=== PATIENT | female | born 1950 | race Caucasian/White ===

== ENCOUNTER 2017-11-02 09:28 | Day surgery (SDC) | payer MEDICARE ==
[2017-10-30 09:15] VITALS: BMI 33.2
[~2017-11-02 09:28] MED LIST: LACTATED RINGERS 1,000 ML IV SCH
[2017-11-02 09:46] VITALS: RESP 18; TEMP 97.9
[2017-11-02] MEDS ORDERED: LACTATED RINGERS 1,000 ML IV ONE (09:46)
[2017-11-02] MEDS ORDERED: LIDOCAINE 1% 20 ML VIAL (10MG/ML) FOR IV START INTRADERMA ONE (09:46)
[2017-11-02] MEDS ORDERED: PROPOFOL 10 MG/ML 20 ML VIAL IV ONE (11:04)
--- NOTE | 2017-11-02 11:33 | P.PCN ---
Date of Procedure: 11/02/17 Procedure(s) Performed: Procedure: Total colonoscopy. Preoperative diagnosis: Screening for neoplasia. Postoperative diagnosis: Exam within normal limits. Preparation: HalfLytely prep. Sedation: Was provided by anesthesia. Brief clinical history: The patient is a 67-year-old female who is scheduled for this evaluation for screening for neoplasia age being her risk factor. She had a prior exam several years back. The patient has no abdominal complaints, bleeding or anemia. Procedure: With the patient on her left lateral decubitus position and after informed consent and adequate sedation, the perianal area was inspected and it did not show any fissures or fistulas. There were no masses felt on digital rectal examination. The Olympus CFQ 160L video colonoscope was then inserted in the rectum in the usual fashion and advanced to the cecum. The mucosa appeared healthy. There was no polyps or tumors seen or any obvious diverticular disease or other pathology. I retroflexed the endoscope in the rectum before the endoscope was withdrawn. The patient tolerated the procedure well. Plan: The patient was reassured. She will follow-up with you as planned and I recommended repeat exam in 10 years.
[2017-11-02 12:13] VITALS: BP 161/75; PULSE 78
== END 2017-11-02 12:31 | disposition home or self-care (01) ==
LOC: ORWHC2ENDO 09:28
DX: Z12.11 Encounter for screening for malignant neoplasm of colon (principal); I10 Essential (primary) hypertension; E78.5 Hyperlipidemia, unspecified; Z79.899 Other long term (current) drug therapy
CPT/HCPCS: G0121; J2704

== ENCOUNTER → 2018-06-21 | Outpatient (CLI) | payer MEDICARE ==
[2018-06-21 17:16] LABS: HGB 13.5 gm/dL (11.4-16.0); MCV 90.9 fL (80.0-100.0); Mean Platelet Volume 6.5; Platelet Count 230 k/uL (150-450); RBC 4.51 m/uL (3.80-5.40); RDW 12.9 % (11.5-15.5); WBC 7.6 k/uL (3.8-10.6)
[2018-06-21 17:30] LABS: Anion Gap 8 mmol/L; Blood Urea Nitrogen 23 mg/dL (7-17); Carbon Dioxide 30 mmol/L (22-30); Chloride 105 mmol/L (98-107); Potassium 4.6 mmol/L (3.5-5.1); Sodium 143 mmol/L (137-145)
== END | disposition home or self-care (01) ==
LOC: LABPAT 15:19
PROVIDERS: ATTEND Internal Medicine Interventional Cardiology
DX: Z01.812 Encounter for preprocedural laboratory examination (principal); E78.2 Mixed hyperlipidemia; I10 Essential (primary) hypertension; R94.39 Abnormal result of other cardiovascular function study
CPT/HCPCS: 80051; 82565; 84520; 85027

== ENCOUNTER 2018-07-02 06:25 | Day surgery (SDC) | payer MEDICARE ==
[2018-06-29 14:41] VITALS: BMI 30.2
[~2018-07-02 06:25] MED LIST changes: +ALPRAZolam 0.25 MG TAB PO PRN; +ALPRAZolam 0.5 MG TAB PO PRN; +ASPIRIN 325 MG TAB PO STA; +ATORVASTATIN 80 MG TAB PO STA; -LACTATED RINGERS 1,000 ML IV SCH; +NITROGLYCERIN SL TABS 0.4 MG TAB SUBLINGUAL PRN; +SODIUM CHLORIDE 0.9% 1,000 ML in EMPTY BAG 1 BAG IV ONE
[2018-07-02] MEDS ORDERED: SODIUM CHLORIDE 0.9% 1,000 ML IV ONE (07:05)
[2018-07-02 07:19] VITALS: RESP 16; TEMP 98
[2018-07-02 07:24] LABS: INR 1.1 (<1.2); Prothrombin Time 11.8 sec (9.0-12.0)
[2018-07-02] MEDS ORDERED: fentaNYL (PF) 50 MCG/ML 2 ML AMP IV ONE (07:45)
[2018-07-02] MEDS ORDERED: LIDOCAINE 1% INJ 10MG/ML (20 ML MDV) SQ ONE (07:52)
[2018-07-02] MEDS ORDERED: VERAPAMIL SYRINGE (5 MG/10 ML) INTRAARTER ONE (07:55)
[2018-07-02] MEDS ORDERED: HEPARIN SODIUM 1,000 UN/ML (10ML VL) IV ONE (08:02)
[2018-07-02] MEDS ORDERED: IOPAMIDOL-370 150ML BTL INJ ONE (08:06)
[2018-07-02] MEDS ORDERED: RX INFO: IV CONTRAST WAS GIVEN 1 EACH MISC MISCELLANE PRN (08:25)
[2018-07-02] MEDS ORDERED: SODIUM CHLORIDE 0.9% 1,000 ML IV SCH (08:30)
[2018-07-02] MEDS ORDERED: WARFARIN 5 MG TAB PO SCH (08:30)
[2018-07-02] MEDS ORDERED: ATORVASTATIN 10 MG TAB PO SCH (09:00)
[2018-07-02] MEDS ORDERED: NON-FORMULARY DRUG (Losartan/Hydrochlorothiazide [Losartan-Hctz 100-12.5 Mg Tab] 1 TAB) PO SCH (09:00)
[2018-07-02] MEDS ORDERED: METOPROLOL TARTRATE 25 MG TAB PO SCH (09:00)
--- NOTE | 2018-07-02 10:59 | CC ---
CARDIAC CATHETERIZATION REPORT Mrs. Cardenas is a 68-year-old female with known history of hypertension, hyperlipidemia, recently diagnosed with atrial fibrillation who had underwent myocardial perfusion imaging, that revealed evidence of inducible ischemia in the inferoapical wall. In view of that, recommendation made regarding cardiac catheterization. The procedures, risks, and complication were discussed with the patient, who is in full understanding and agreement. PROCEDURE: Patient was brought to the labor economist in a fasting semi-sedated state after receiving fentanyl and Benadryl and achieving moderate conscious sedated state. Using Xylocaine anesthesia and a Seldinger technique, a 6-Singaporean sheath was introduced in the right radial artery. Selective right and left angiography were performed using 5-Singaporean 3.5 bend right and left Katherine catheter, multiple views of the coronary artery including hemiaxial views obtained. Following that, a 5-Singaporean tight pigtail catheter was introduced in the left ventricle and a 30 degree SLATER view of the left ventricle was obtained. Following that, catheter and sheaths were removed. Hemostasis was obtained with deployment of a TR band. There was no immediate complication. Patient is returned to her room in stable condition. Of note, the patient received 4000 units of intravenous heparin as well as intra-arterial verapamil. FINDINGS: FLUOROSCOPY: There was calcification involving the left anterior descending artery. LEFT MAIN: This is a short size vessel, bifurcating immediately to the LAD and the left circumflex, left main coronary artery has no evidence of high-grade stenosis. LEFT ANTERIOR DESCENDING ARTERY: This is a large-sized vessel, reaching toward the apex with a wraparound apex segment giving rise to 3 diagonal branches. The first one is the larger in caliber. The left anterior descending artery has about a 20% plaque proximally. The rest of the vessel has no high-grade stenosis. LEFT CIRCUMFLEX: This is a codominant vessel, giving rise to a large obtuse marginal branch in mid segment. The obtuse marginal branch proximally has a 30% plaque distally gives rise to small PDA and PLV. The left circumflex distally has no evidence of high- grade stenosis. RIGHT CORONARY ARTERY: This is a codominant, moderately-sized vessel giving rise to a PDA. The right coronary artery in the proximal and mid segment has mild intimal plaque of 20% without any evidence of high-grade stenosis. LEFT VENTRICULOGRAM: Left ventriculogram was performed in 30 degree SLATER view and revealed normal left ventricular size and systolic function. The ejection fraction is 60%. There was no significant mitral regurgitation. HEMODYNAMICS: There was no gradient across the aortic valve. The left ventricular end-diastolic pressure was 16-20 mmHg. CONCLUSION: 1. Mild triple-vessel coronary disease. 2. Normal left ventricular size and systolic function. RECOMMENDATION: In view of finding anatomy, recommend continue with medical therapy with aggressive risk modification. Those findings and recommendations were discussed with the patient and her family, who are in full understanding and agreement. Duration of procedure is 19 minutes. MMODL / IJN: [id number] /
[2018-07-02 14:31] VITALS: BP 114/55; PULSE 46
[2018-07-03] MEDS ORDERED: WARFARIN 5 MG TAB PO SCH (08:25)
[2018-07-03] MEDS ORDERED: amLODIPine 5 MG TAB PO SCH (09:00)
== END 2018-07-02 13:21 | disposition home or self-care (01) ==
LOC: CATHCVL 06:25
PROVIDERS: ATTEND Internal Medicine Interventional Cardiology
DX: I25.10 Atherosclerotic heart disease of native coronary artery without angina pectoris (principal); E78.2 Mixed hyperlipidemia; R94.39 Abnormal result of other cardiovascular function study; I48.0 Paroxysmal atrial fibrillation; I10 Essential (primary) hypertension; Z79.01 Long term (current) use of anticoagulants; Z79.899 Other long term (current) drug therapy
CPT/HCPCS: 93458; 85610; J2001; J3010; J1644; Q9967

== ENCOUNTER → 2019-03-16 | Outpatient (CLI) | payer MEDICARE ==
[2019-03-16 15:55] VITALS: BP 179/91; PULSE 56; RESP 16; TEMP 98; BMI 37.0
--- NOTE | 2019-03-16 16:32 | P.HPBAR ---
Bariatric H&P - History & Physicial H&P Date: 03/16/19 History & Physicial: Visit/CC: Intial VISIT Patient initial contact: Initial weight: 87.345 kg Initial weight in pounds: 192.56 Height: 5 ft 0.5 in Initial BMI: 37.0 Last weight: Current weight: 87.345 kg Current weight in pounds: 192.56 Current BMI: 37.0 Abie body weight (based on NIH guidelines): 46.493 kg Excess body weight loss: 0.0% The patient is a 69 year-old F who presents for Bariatric Assessment. HPI: She comes in with afib and on blood thinners. She is looking into any procedures. Highest weight 220 pounds. She has lost 30 pounds cutting down carbs and sweets and treadmill. No heartburn. She is adopted. She had colonoscopy 2 years ago. She has easy bruising. Heart doctor Dr. Beebe pending follow up in 6 months, last month last seen. Her friends had weight loss surgery. No diarrhea. She used to smoke 28 ago 5 packs per day. She has undergone all diets for 1 year. Weight wathcers [place] weight loss, Nutrisystem, Adipex. Medical weight loss She is open to all procedures. [facility] reviewed Past Medical History Past Medical History: Atrial Fibrillation, Hyperlipidemia, Hypertension Additional Past Medical History / Comment(s): PT STATES THAT SHE FELL WHILE IN [place] ON Thursday06/28/18 AND BRUISED HER RT ARM AND CANNOT BEAR MUCH WEIGHT ON HER LEFT FOOT. History of Any Multi-Drug Resistant Organisms: None Reported Past Surgical History: Back Surgery, Orthopedic Surgery Additional Past Surgical History / Comment(s): Back fusion, laminectomy; Colonoscopies, Carpal Tunnel, feet -bone spurs; Shoulder & Knee Arthroscopy, cervical fusion Past Anesthesia/Blood Transfusion Reactions: No Reported Reaction Past Psychological History: No Psychological Hx Reported Smoking Status: Former smoker Past Alcohol Use History: None Reported Additional Past Alcohol Use History / Comment(s): Smoked from her teens until ppd ! Past Drug Use History: None Reported - Past Family History Mother Family Medical History: Unable to Obtain Additional Family Medical History / Comment(s): Adopted Surgical - Exam Vital Signs Temp Pulse Resp BP 98 F 56 L 16 179/91 03/16/19 15:52 03/16/19 15:52 03/16/19 15:52 03/16/19 15:52 Bariatric Checklist Checklist: Plan: Checklist: EGD: 1. Hiatal hernia: 2. H. Pylori: HgbA1c: Vitamin D: Smoking: Former smoker Primary care physician referral: Dr. Richter Psychiatry clearance: Cardiology clearance: Sleep study: Diet journal: VTE risk score: VTE risk level: Rehab needs at discharge:
[2019-03-16 18:24] LABS: HCT 42.5 % (34.0-46.0); HGB 14.2 gm/dL (11.4-16.0); MCH 29.6 pg (25.0-35.0); MCHC 33.3 g/dL (31.0-37.0); Mean Platelet Volume 6.6; Platelet Count 268 k/uL (150-450); RBC 4.78 m/uL (3.80-5.40); RDW 13.5 % (11.5-15.5)
[2019-03-16 18:34] LABS: Partial Thromboplastin Time 39.1 sec (22.0-30.0); Prothrombin Time 19.5 sec (9.0-12.0)
[2019-03-16 23:33] LABS: % Iron Saturation 14.9 (12.00-45.00); African American GFR (CKD) 66.6 (60.0-200.0); Albumin 4.6 g/dL (3.80-4.90); Albumin/Globulin Ratio 2.09 (1.60-3.17); Anion Gap 10.4 mmol/L (4.00-12.00); Calcium 9.2 mg/dL (8.7-10.3); Carbon Dioxide 27.6 mmol/L (21.6-31.8); Chol/HDL Ratio 4.54; Globulin 2.2 g/dL (1.6-3.3); LDL Cholesterol,Calculated 139.8 mg/dL (0.0-131.0); Magnesium 1.9 mg/dL (1.5-2.4); Phosphorus 3.5 mg/dL (2.4-5.1); Total Bilirubin 0.5 mg/dL (0.3-1.2); Total Protein 6.8 g/dL (6.2-8.2); VLDL Calculation 44.2 mg/dL (5.00-40.00)
[2019-03-16 23:41] LABS: Ferritin 56.9 ng/mL (10.0-291.0)
[2019-03-17 04:35] LABS: Hemoglobin A1C 5.9 % (4.0-6.0)
[2019-03-18 12:33] LABS: Zinc, Serum 69 ug/dL (60-130)
== END | disposition home or self-care (01) ==
LOC: BARWHC3 14:43
PROVIDERS: ATTEND Surgery Plastic and Reconstructive Surgery
DX: E66.9 Obesity, unspecified (principal); E21.1 Secondary hyperparathyroidism, not elsewhere classified; E89.1 Postprocedural hypoinsulinemia; D50.9 Iron deficiency anemia, unspecified; E44.0 Moderate protein-calorie malnutrition; E55.9 Vitamin D deficiency, unspecified; K74.1 Hepatic sclerosis; N19 Unspecified kidney failure; K50.90 Crohn's disease, unspecified, without complications; Z87.891 Personal history of nicotine dependence; Z68.37 Body mass index [BMI] 37.0-37.9, adult
CPT/HCPCS: 84255; 84134; 84425; 80061; 80053; 82607; 82728; 82525; 82746; 83540; 83550; 83735; 84100; 84443; 84590; 84630; 85027; 85610; 85730; 82306; 83970; 83036; G0463; 99211

== ENCOUNTER 2019-04-18 08:58 | Day surgery (SDC) | payer MEDICARE ==
[2019-04-14 13:16] VITALS: BMI 37.5
--- NOTE | 2019-04-18 07:25 | P.GSHP ---
History of Present Illness H&P Date: 04/18/19 CHIEF COMPLAINT: GERD HISTORY OF PRESENT ILLNESS: The patient is a 69-year-old female who presents reports gastroesophageal reflux disease. Upper endoscopy was offered for further evaluation and management. PAST MEDICAL HISTORY: Please see list. PAST SURGICAL HISTORY: Please see list. MEDICATIONS: Please see list. ALLERGIES: Please see list. SOCIAL HISTORY: No illicit drug use FAMILY HISTORY: No reports of Crohn disease or ulcerative colitis. REVIEW OF ORGAN SYSTEMS: CONSTITUTIONAL: No reports of fevers or chills. GI: Denies any blood in stools or constipation. PHYSICAL EXAM: VITAL SIGNS: Stable GENERAL: Well-developed and pleasant in no acute distress. HEENT: No scleral icterus. Extraocular movements grossly intact. Moist buccal mucosa. NECK: Supple without lymphadenopathy. CHEST: Unlabored respirations. Equal bilateral excursions. CARDIOVASCULAR: Regular rate and rhythm. Distal 2+ pulses. ABDOMEN: Soft, nondistended. MUSCULOSKELETAL: No clubbing, cyanosis, or edema. ASSESSMENT: 1. Gastroesophageal reflux disease PLAN: 1. Recommend proceeding with an upper endoscopy Past Medical History Past Medical History: Atrial Fibrillation, Hyperlipidemia, Hypertension, Osteoarthritis (OA) Additional Past Medical History / Comment(s): PT STATES THAT SHE FELL WHILE IN [place] ON Thursday06/28/18 AND BRUISED HER RT ARM AND CANNOT BEAR MUCH WEIGHT ON HER LEFT FOOT. History of Any Multi-Drug Resistant Organisms: None Reported Past Surgical History: Back Surgery, Heart Catheterization, Orthopedic Surgery Additional Past Surgical History / Comment(s): Back fusion, laminectomy, colonoscopies, Carpal Tunnel, feet -bone spurs, shoulder & knee arthroscopy, cervical fusion. Past Anesthesia/Blood Transfusion Reactions: No Reported Reaction Past Psychological History: No Psychological Hx Reported Smoking Status: Former smoker Past Alcohol Use History: Occasional Additional Past Alcohol Use History / Comment(s): Smoked from her teens until 1990, 5 PPD. Past Drug Use History: None Reported - Past Family History Mother Family Medical History: Unable to Obtain Additional Family Medical History / Comment(s): Adopted. Medications and Allergies Home Medications Medication Instructions Recorded Confirmed Type Atorvastatin [Lipitor] 10 mg PO QAM 10/30/17 04/14/19 History Losartan/Hydrochlorothiazide 1 tab PO QAM 07/01/18 04/14/19 History [Losartan-Hctz 100-12.5 mg Tab] Metoprolol Tartrate [Lopressor] 25 mg PO BID 07/01/18 04/14/19 History Warfarin Sodium [Coumadin] 2.5 mg PO TUTHSA 07/01/18 04/14/19 History Warfarin [Coumadin] 5 mg PO SUMOWEFR 07/01/18 04/14/19 History amLODIPine [Norvasc] 5 mg PO QAM 07/01/18 04/14/19 History Ergocalciferol [Vitamin D2 50,000 unit PO SA 03/30/19 04/14/19 History (DRISDOL)] Allergies Allergy/AdvReac Type Severity Reaction Status Date / Time latex Allergy Rash/Hives Verified 04/14/19 12:13
[~2019-04-18 08:58] MED LIST changes: -ALPRAZolam 0.25 MG TAB PO PRN; -ALPRAZolam 0.5 MG TAB PO PRN; -ASPIRIN 325 MG TAB PO STA; -ATORVASTATIN 80 MG TAB PO STA; +LACTATED RINGERS 1,000 ML IV SCH; +LIDOCAINE 1% 20 ML VIAL (10MG/ML) FOR IV START INTRADERMA PRN; -NITROGLYCERIN SL TABS 0.4 MG TAB SUBLINGUAL PRN; -SODIUM CHLORIDE 0.9% 1,000 ML in EMPTY BAG 1 BAG IV ONE
[2019-04-18 09:27] VITALS: RESP 16; TEMP 98.4
[2019-04-18] MEDS ORDERED: LIDOCAINE 1% INJ 10MG/ML (20 ML MDV) ONE (09:49)
[2019-04-18] MEDS ORDERED: PROPOFOL 10 MG/ML 20 ML VIAL IV ONE (09:49)
--- NOTE | 2019-04-18 09:56 | P.PCN ---
Date of Procedure: 04/18/19 Description of Procedure: PREOPERATIVE DIAGNOSIS: Gastroesophageal reflux disease. Morbid obesity. POSTOPERATIVE DIAGNOSIS: Morbid obesity. Gastritis. Gastroesophageal reflux disease. Diaphragmatic hiatal hernia OPERATION: Esophagogastroduodenoscopy with biopsies along antrum. SURGEON: Fani Hernandez MD ANESTHESIA: MAC. INDICATIONS: The patient is a 69-year-old female who presents with a history of reflux disease. Benefits and risks of the procedure were described. Informed consent was obtained. DESCRIPTION: The patient was brought into the endoscopy suite and laid in the left lateral decubitus position. An Olympus gastroscope was passed along the posterior oropharynx down to the distal esophagus where the squamocolumnar junction was encountered at 34 cm from the incisors. The stomach was entered and no bile reflux was found. Additional findings are listed below. Biopsies with cold f orceps were obtained of the antrum. The first through third portion of the duodenum was examined and unremarkable. Retroflexion of the scope confirmed Hill grade 2 lower esophageal valve. The squamocolumnar junction demonstrated LA grade A erosive esophagitis. The stomach was desufflated. The patient tolerated the procedure well. FINDINGS: Squamocolumnar junction 34 cm from the incisors. Diaphragmatic hiatus at 36 cm. Hiatal hernia, 2 cm Hill grade 2 lower esophageal valve. LA grade A erosive esophagitis. No active duodenitis. Chronic gastritis RECOMMENDATIONS: Upper endoscopy as needed. Plan - Discharge Summary Discharge Rx Participant: No New Discharge Prescriptions: No Action Atorvastatin [Lipitor] 10 mg PO QAM amLODIPine [Norvasc] 5 mg PO QAM Warfarin [Coumadin] 5 mg PO SUMOWEFR Losartan/Hydrochlorothiazide [Losartan-Hctz 100-12.5 mg Tab] 1 tab PO QAM Metoprolol Tartrate [Lopressor] 25 mg PO BID Warfarin Sodium [Coumadin] 2.5 mg PO TUTA Ergocalciferol [Vitamin D2 (DRISDOL)] 50,000 unit PO SA Discharge Medication List Atorvastatin [Lipitor] 10 mg PO QAM 10/30/17 [History] Losartan/Hydrochlorothiazide [Losartan-Hctz 100-12.5 mg Tab] 1 tab PO QAM 07/01/18 [History] Metoprolol Tartrate [Lopressor] 25 mg PO BID 07/01/18 [History] Warfarin Sodium [Coumadin] 2.5 mg PO TUTHSA 07/01/18 [History] Warfarin [Coumadin] 5 mg PO SUMOWEFR 07/01/18 [History] amLODIPine [Norvasc] 5 mg PO QAM 07/01/18 [History] Ergocalciferol [Vitamin D2 (DRISDOL)] 50,000 unit PO SA 03/30/19 [History] [facility]Ref[facility] [place] [place] [facility] [place] [facility] Patient Instructions/Handouts: Hiatal Hernia (DC), Gastroesophageal Reflux Disease (DC) Activity/Diet/Wound Care/Special Instructions: Start Coumadin 04/20/19 Discharge Disposition: HOME SELF-CARE
[2019-04-18 10:25] VITALS: BP 150/69; PULSE 43
== END 2019-04-18 10:50 | disposition home or self-care (01) ==
LOC: ORWHC2ENDO 08:58
PROVIDERS: ATTEND Surgery Plastic and Reconstructive Surgery
DX: K29.50 Unspecified chronic gastritis without bleeding (principal); K21.0 Gastro-esophageal reflux disease with esophagitis; K44.9 Diaphragmatic hernia without obstruction or gangrene; E66.01 Morbid (severe) obesity due to excess calories; I48.91 Unspecified atrial fibrillation; E78.5 Hyperlipidemia, unspecified; I10 Essential (primary) hypertension; M19.90 Unspecified osteoarthritis, unspecified site; Z68.38 Body mass index [BMI] 38.0-38.9, adult; Z91.040 Latex allergy status; Z87.828 Personal history of other (healed) physical injury and trauma; Z91.81 History of falling; Z98.890 Other specified postprocedural states; Z98.1 Arthrodesis status; Z87.891 Personal history of nicotine dependence; Z79.01 Long term (current) use of anticoagulants; Z79.899 Other long term (current) drug therapy
CPT/HCPCS: 88305; 43239; J2001; J2704

== ENCOUNTER → 2019-05-18 | Outpatient (CLI) | payer MEDICARE ==
[2019-05-18 16:36] VITALS: BP 179/80; PULSE 54; RESP 16; TEMP 97.9; BMI 37.6
--- NOTE | 2019-05-18 17:27 | P.PN ---
Subjective Progress Note Date: 05/18/19 DATE OF SERVICE: 05/18/2019 CHIEF COMPLAINT: Morbid obesity. HISTORY OF PRESENT ILLNESS: Renetta Cardenas is a 69-year-old female who comes with lifelong morbid obesity. She has co-morbidities hypertension, osteoarthritis of the knees, and hyperlipidemia. She has undergone multiple diets including weight watchers, [place] weight loss, Nutrisystem, Adipex and medical weight loss. She is now looking into the gastric bypass. She has completed upper endoscopy. She is pending follow-up for publicist. She is also pending her primary care letter. At height of 5 feet 0.5 inches, her ideal body weight is 127 pounds. Highest weight was 220 pounds, BMI 42.3. Today, she comes in 196 pounds from 192 pounds, 2 months ago. She has gained 3 pounds in 2 months. Her BMI is 37.6. She is 69 pounds overweight. PAST MEDICAL HISTORY: 1. Morbid obesity due to excess calories 2. Body mass index of 42.3 initial 3. Osteoarthritis of the knees. 4. Atrial fibrillation 5. Hypertensive heart disease. 6. Hyperlipidemia 7. Osteoarthritis of the back PAST SURGICAL HISTORY: 1. Back fusion 2. Laminectomy 3. Colonoscopy 4. Carpal tunnel surgery 5. Shoulder arthroscopy 6. Knee arthroscopy 7. Cervical fusion 8. Heart catheterization HOME MEDICATIONS: Home Medications Medication Instructions Recorded Confirmed Atorvastatin [Lipitor] 10 mg PO QAM 10/30/17 05/18/19 Losartan/Hydrochlorothiazide 1 tab PO QAM 07/01/18 05/18/19 [Losartan-Hctz 100-12.5 mg Tab] Metoprolol Tartrate [Lopressor] 25 mg PO BID 07/01/18 05/18/19 Warfarin Sodium [Coumadin] 2.5 mg PO TUTHSA 07/01/18 05/18/19 Warfarin [Coumadin] 5 mg PO SUMOWEFR 07/01/18 05/18/19 amLODIPine [Norvasc] 5 mg PO QAM 07/01/18 05/18/19 Ergocalciferol [Vitamin D2 50,000 unit PO SA 03/30/19 05/18/19 (DRISDOL)] ALLERGIES: Allergies Allergy/AdvReac Type Severity Reaction Status Date / Time latex Allergy Rash/Hives Verified 05/18/19 16:56 SOCIAL HISTORY: Past tobacco use. FAMILY HISTORY: No family history of ulcerative colitis disease or Crohn's disease. Family history of morbid obesity. No lupus in the family. No reports of stomach or esophageal cancer. REVIEW OF ORGAN SYSTEMS: CONSTITUTIONAL: At height of 5 feet 0.5 inches, her ideal body weight is 127 pounds. Highest weight was 220 pounds, BMI 42.3. HEENT: Denies any active troubles with vision or hearing. No troubles with swallowing. ENDOCRINE: No diabetes. No hypothyroidism. CARDIOVASCULAR: Past reports of palpitations or heart attacks or chest pain. Has atrial fibrillation RESPIRATORY: No pneumonia No asthma. GASTROINTESTINAL: Denies any bright red blood per rectum. No diarrhea. No constipation. MUSCULOSKELETAL: Has lower back pain and joint pain. Has osteoarthritis of the knees. NEURO: No headaches. No seizure disorders. PSYCH: No depression. No suicidal ideation. RHEUMATOLOGIC: No lupus. No rheumatoid arthritis. HEMATOLOGIC: Denies any abnormal bleeding or bruising. No personal history of DVTs. On anticoagulant. SKIN: No rash. No skin cancer. PHYSICAL EXAM: VITAL SIGNS: Height 5 foot 0.5 inches, weight 196 pounds. BMI 37.6 Vital Signs Temp 97.9 F 05/18/19 16:34 Pulse 54 L 05/18/19 16:34 Resp 16 05/18/19 16:34 BP 179/80 05/18/19 16:34 Pulse Ox GENERAL: Well-developed in no acute distress. HEENT: No scleral icterus. Extraocular movements grossly intact. Hears conversational speech. No nasal drainage. NECK: Supple without lymphadenopathy. CHEST: Nonlabored respirations with equal bilateral excursions. CARDIOVASCULAR: Irregular rate and rhythm. Distal 2+ pulses. ABDOMEN: Obese, soft, nontender, nondistended. MUSCULOSKELETAL: No clubbing, cyanosis. Gross strength 5/5 distal lower extremities. NEURO: No focal or lateralizing signs. Cranial nerves 2 through 12 grossly within normal limits. PSYCH: Appropriate affect. Alert and oriented to person, place and time. SKIN: Good skin turgor. Well perfused. LABS: Cholesterol elevated. Vitamin D is low. EGD FINDINGS: Squamocolumnar junction 34 cm from the incisors. Diaphragmatic hiatus at 36 cm. Hiatal hernia, 2 cm Hill grade 2 lower esophageal valve. LA grade A erosive esophagitis. No active duodenitis. Chronic gastritis Final Pathologic Diagnosis GASTRIC ANTRUM, BIOPSY: Mild chronic gastritis. Helicobacter pylori organisms are not identified on routine H+E sections. ASSESSMENT: 1. Morbid obesity due to excess calories 2. Body mass index of 42.3 initial 3. Osteoarthritis of the knees. 4. Atrial fibrillation 5. Hypertensive heart disease. 6. Hyperlipidemia 7. Osteoarthritis of the back 8. Hiatal hernia 9. Vitamin D deficiency PLAN: 1. She is looking into gastric bypass. 2. Vitamin D supplement for vitamin D deficiency. 3. Will need cardiac clearance. 4. She is on coumadin and is increased risk for complications with any baria tric procedure. 5. Also she is pending her PCP letter. Objective - Vital Signs Vital signs: Vital Signs Temp 97.9 F 05/18/19 16:34 Pulse 54 L 05/18/19 16:34 Resp 16 05/18/19 16:34 BP 179/80 05/18/19 16:34 Pulse Ox Intake & Output 05/17/19 05/18/19 05/18/19 18:59 06:59 18:59 Weight 88.904 kg
== END | disposition home or self-care (01) ==
LOC: BARWHC3 14:34
PROVIDERS: ATTEND Surgery Plastic and Reconstructive Surgery
DX: E66.01 Morbid (severe) obesity due to excess calories (principal); M17.0 Bilateral primary osteoarthritis of knee; I48.91 Unspecified atrial fibrillation; I11.9 Hypertensive heart disease without heart failure; E78.5 Hyperlipidemia, unspecified; K44.9 Diaphragmatic hernia without obstruction or gangrene; E55.9 Vitamin D deficiency, unspecified; Z68.41 Body mass index [BMI] 40.0-44.9, adult; Z87.891 Personal history of nicotine dependence; Z79.01 Long term (current) use of anticoagulants; Z79.899 Other long term (current) drug therapy; Z91.040 Latex allergy status
CPT/HCPCS: 99211

== ENCOUNTER → 2019-05-30 | Outpatient (CLI) | payer MEDICARE ==
[2019-05-30 09:27] VITALS: BMI 37.9
== END | disposition home or self-care (01) ==
LOC: BARWHC3 08:32
PROVIDERS: ATTEND Surgery Plastic and Reconstructive Surgery
DX: E66.01 Morbid (severe) obesity due to excess calories (principal); Z68.37 Body mass index [BMI] 37.0-37.9, adult
CPT/HCPCS: 97804

== ENCOUNTER → 2019-06-15 | Outpatient (CLI) | payer MEDICARE ==
[2019-06-15 16:25] LABS: Albumin 4.9 g/dL (3.5-5.0); Calcium 9.8 mg/dL (8.4-10.2); Potassium 5.2 mmol/L (3.5-5.1)
[2019-06-15 16:28] LABS: Basophils # (A) 0.1 k/uL (0-0.2); Basophils % (A) 1 %; Eosinophils # (A) 0.1 k/uL (0-0.7); Eosinophils % (A) 1 %; HCT 43.3 % (34.0-46.0); HGB 14.5 gm/dL (11.4-16.0); Lymphocytes # (A) 1.5 k/uL (1.0-4.8); Lymphocytes % (A) 19 %; MCHC 33.5 g/dL (31.0-37.0); MCV 89.4 fL (80.0-100.0); Mean Platelet Volume 7.3; Monocytes # (A) 0.4 k/uL (0-1.0); Monocytes % (A) 5 %; Neutrophils # (A) 5.9 k/uL (1.3-7.7); Neutrophils % (A) 72 %; Platelet Count 257 k/uL (150-450); RBC 4.85 m/uL (3.80-5.40); WBC 8.2 k/uL (3.8-10.6)
== END | disposition home or self-care (01) ==
LOC: LABPAT 15:14
PROVIDERS: ATTEND Surgery Plastic and Reconstructive Surgery
DX: Z01.812 Encounter for preprocedural laboratory examination (principal)
CPT/HCPCS: 36415; 80053; 85025; 86850; 86900; 86901

== ENCOUNTER → 2019-06-15 | Outpatient (CLI) | payer MEDICARE ==
[2019-06-15 14:19] VITALS: BP 155/71; PULSE 58; RESP 16; TEMP 97.9; BMI 37.0
--- NOTE | 2019-06-15 14:58 | P.PN ---
Subjective Progress Note Date: 06/15/19 DATE OF SERVICE: 06/15/2019 CHIEF COMPLAINT: Morbid obesity. HISTORY OF PRESENT ILLNESS: Renetta Cardenas is a 69-year-old female who comes with lifelong morbid obesity. She comes in with hypertension, osteoarthritis of the knees, and hyperlipidemia. She has completed medical supervised weight loss. She is now looking into the gastric bypass. At height of 5 feet 0.5 inches, her ideal body weight is 127 pounds. Highest weight was 220 pounds, BMI 42.3. Today, she comes in 190 pounds from 196 pounds from 192 pounds, 1 month ago. She has lost 6 pounds in 1 month. Her BMI is 37.1. She is 63 pounds overweight. PAST MEDICAL HISTORY: 1. Morbid obesity due to excess calories 2. Body mass index of 42.3 initial 3. Osteoarthritis of the knees. 4. Atrial fibrillation 5. Hypertensive heart disease. 6. Hyperlipidemia 7. Osteoarthritis of the back PAST SURGICAL HISTORY: 1. Back fusion 2. Laminectomy 3. Colonoscopy 4. Carpal tunnel surgery 5. Shoulder arthroscopy 6. Knee arthroscopy 7. Cervical fusion 8. Heart catheterization HOME MEDICATIONS: Home Medications Medication Instructions Recorded Confirmed Atorvastatin [Lipitor] 10 mg PO QAM 10/30/17 05/18/19 Losartan/Hydrochlorothiazide 1 tab PO QAM 07/01/18 05/18/19 [Losartan-Hctz 100-12.5 mg Tab] Metoprolol Tartrate [Lopressor] 25 mg PO BID 07/01/18 05/18/19 Warfarin Sodium [Coumadin] 2.5 mg PO TUTHSA 07/01/18 05/18/19 Warfarin [Coumadin] 5 mg PO SUMOWEFR 07/01/18 05/18/19 amLODIPine [Norvasc] 5 mg PO QAM 07/01/18 05/18/19 Ergocalciferol [Vitamin D2 50,000 unit PO SA 03/30/19 05/18/19 (DRISDOL)] ALLERGIES: Allergies Allergy/AdvReac Type Severity Reaction Status Date / Time latex Allergy Rash/Hives Verified 05/18/19 16:56 SOCIAL HISTORY: Past tobacco use. FAMILY HISTORY: No family history of ulcerative colitis disease or Crohn's disease. Family history of morbid obesity. No lupus in the family. No reports of stomach or esophageal cancer. REVIEW OF ORGAN SYSTEMS: CONSTITUTIONAL: At height of 5 feet 0.5 inches, her ideal body weight is 127 pounds. Highest weight was 220 pounds, BMI 42.3. HEENT: Denies any active troubles with vision or hearing. No troubles with swallowing. ENDOCRINE: No diabetes. No hypothyroidism. CARDIOVASCULAR: Past reports of palpitations or heart attacks or chest pain. Has atrial fibrillation RESPIRATORY: No pneumonia No asthma. GASTROINTESTINAL: Denies any bright red blood per rectum. No diarrhea. No constipation. MUSCULOSKELETAL: Has lower back pain and joint pain. Has osteoarthritis of the knees. NEURO: No headaches. No seizure disorders. PSYCH: No depression. No suicidal ideation. RHEUMATOLOGIC: No lupus. No rheumatoid arthritis. HEMATOLOGIC: Denies any abnormal bleeding or bruising. No personal history of DVTs. On anticoagulant. SKIN: No rash. No skin cancer. PHYSICAL EXAM: VITAL SIGNS: Height 5 foot 0.5 inches, weight 190 pounds. BMI 37.1 Vital Signs Temp 97.9 F 06/15/19 14:16 Pulse 58 L 06/15/19 14:16 Resp 16 06/15/19 14:16 BP 155/71 06/15/19 14:16 Pulse Ox GENERAL: Well-developed in no acute distress. HEENT: No scleral icterus. Extraocular movements grossly intact. Hears conversational speech. No nasal drainage. NECK: Supple without lymphadenopathy. CHEST: Nonlabored respirations with equal bilateral excursions. CARDIOVASCULAR: Irregular rate and rhythm. Distal 2+ pulses. ABDOMEN: Obese, soft, nontender, nondistended. MUSCULOSKELETAL: No clubbing, cyanosis. NEURO: No focal or lateralizing signs. Cranial nerves 2 through 12 grossly within normal limits. PSYCH: Appropriate affect. Alert and oriented to person, place and time. SKIN: Good skin turgor. Well perfused. ASSESSMENT: 1. Morbid obesity due to excess calories 2. Body mass index of 42.3 initial to 37.1 3. Osteoarthritis of the knees. 4. Atrial fibrillation 5. Hypertensive heart disease. 6. Hyperlipidemia 7. Osteoarthritis of the back 8. Hiatal hernia 9. Vitamin D deficiency 10. Chronic anticoagulant therapy PLAN: 1. Bariatric options between a sleeve, band and a Minda-en-Y gastric bypass were reviewed in detail. The patient elected for a gastric bypass. Robotic assisted approach described. 2. The [place] [facility] Data was also reviewed with benefits and risks as described. 3. An 8 page second-generation bariatric consent form was reviewed in detail including potential of bleeding, infection, leaks, adequate weight loss, nutritional deficiencies which the patient demonstrated understanding of the risks. 4. A 2 week high-protein low caloric 800 kcal diet described to address hepatomegaly. 5. Preoperative labs including complete metabolic panel and CBC with type and screen recommended. 6. DVT prophylaxis per [place] [facility]. 7. Antibiotic prophylaxis. 8. Inpatient hospitalization anticipated for more than 2 nights. 9. All questions and concerns were addressed with the patient.Consent gastric bypass. 10. She is high surgical risk with being on coumadin. She will be off coumadin at least 5 days prior. Objective - Vital Signs Vital signs: Vital Signs Temp 97.9 F 06/15/19 14:16 Pulse 58 L 06/15/19 14:16 Resp 16 06/15/19 14:16 BP 155/71 06/15/19 14:16 Pulse Ox Intake & Output 06/14/19 06/15/19 06/15/19 18:59 06:59 18:59 Weight 86.183 kg
== END | disposition home or self-care (01) ==
LOC: BARWHC3 13:43
PROVIDERS: ATTEND Surgery Plastic and Reconstructive Surgery
DX: E66.01 Morbid (severe) obesity due to excess calories (principal); M17.0 Bilateral primary osteoarthritis of knee; I48.91 Unspecified atrial fibrillation; I11.9 Hypertensive heart disease without heart failure; E78.5 Hyperlipidemia, unspecified; K44.9 Diaphragmatic hernia without obstruction or gangrene; E55.9 Vitamin D deficiency, unspecified; Z68.37 Body mass index [BMI] 37.0-37.9, adult; Z83.49 Family history of other endocrine, nutritional and metabolic diseases; Z87.891 Personal history of nicotine dependence; Z79.01 Long term (current) use of anticoagulants; Z79.899 Other long term (current) drug therapy; Z91.040 Latex allergy status
CPT/HCPCS: 99211

== ENCOUNTER 2019-06-20 07:18 | Inpatient (IN) | payer MEDICARE ==
--- NOTE | 2019-06-19 14:18 | P.GSHP ---
History of Present Illness H&P Date: 06/20/19 DATE OF SERVICE: 06/20/2019 CHEIF COMPLAINT: Morbid obesity HISTORY OF PRESENT ILLNESS: Renetta Cardenas is a 69-year-old female who comes with lifelong morbid obesity. She comes in with co-morbidities of hypertension, osteoarthritis of the knees, and hyperlipidemia. She comes in with atrial fibr illation and is on blood thinners. She is looking into the gastric bypass. Her highest weight was 220 pounds. She has lost 30 pounds by cutting down carbs and sweets and treadmill. No reports of severe heartburn. She is adopted. She had colonoscopy 2 years ago. She has easy bruising. At height of 5 feet 0.5 inches, her ideal body weight is 127 pounds. Highest weight was 220 pounds, BMI 42.3. She comes in 192 pounds, BMI 37.0. She is 65 pounds overweight. PAST MEDICAL HISTORY: 1. Morbid obesity due to excess calories 2. Body mass index of 42.3 initial 3. Osteoarthritis of the knees. 4. Atrial fibrillation 5. Hypertensive heart disease. 6. Hyperlipidemia 7. Osteoarthritis of the back PAST SURGICAL HISTORY: 1. Back fusion 2. Laminectomy 3. Colonoscopy 4. Carpal tunnel surgery 5. Shoulder arthroscopy 6. Knee arthroscopy 7. Cervical fusion 8. Heart catheterization HOME MEDICATIONS: Home Medications Medication Instructions Recorded Confirmed Atorvastatin [Lipitor] 10 mg PO QAM 10/30/17 05/18/19 Losartan/Hydrochlorothiazide 1 tab PO QAM 07/01/18 05/18/19 [Losartan-Hctz 100-12.5 mg Tab] Metoprolol Tartrate [Lopressor] 25 mg PO BID 07/01/18 05/18/19 Warfarin Sodium [Coumadin] 2.5 mg PO TUTHSA 07/01/18 05/18/19 Warfarin [Coumadin] 5 mg PO SUMOWEFR 07/01/18 05/18/19 amLODIPine [Norvasc] 5 mg PO QAM 07/01/18 05/18/19 Ergocalciferol [Vitamin D2 50,000 unit PO SA 03/30/19 05/18/19 (DRISDOL)] ALLERGIES: Allergies Allergy/AdvReac Type Severity Reaction Status Date / Time latex Allergy Rash/Hives Verified 05/18/19 16:56 SOCIAL HISTORY: Past tobacco use. FAMILY HISTORY: No family history of ulcerative colitis disease or Crohn's disease. Family history of morbid obesity. No lupus in the family. No reports of stomach or esophageal cancer. REVIEW OF ORGAN SYSTEMS: CONSTITUTIONAL: At height of 5 feet 0.5 inches, her ideal body weight is 127 pounds. Highest weight was 220 pounds, BMI 42.3. HEENT: Denies any active troubles with vision or hearing. No troubles with swallowing. ENDOCRINE: No diabetes. No hypothyroidism. CARDIOVASCULAR: Past reports of palpitations or heart attacks or chest pain. Has atrial fibrillation RESPIRATORY: No pneumonia No asthma. GASTROINTESTINAL: Denies any bright red blood per rectum. No diarrhea. No constipation. MUSCULOSKELETAL: Has lower back pain and joint pain. Has osteoarthritis of the knees. NEURO: No headaches. No seizure disorders. PSYCH: No depression. No suicidal ideation. RHEUMATOLOGIC: No lupus. No rheumatoid arthritis. HEMATOLOGIC: Denies any abnormal bleeding or bruising. No personal history of DVTs. On anticoagulant. SKIN: No rash. No skin cancer. PHYSICAL EXAM: VITAL SIGNS: Height 5 foot 0.5 inches, weight 192 pounds. BMI 37.0 GENERAL: Well-developed in no acute distress. HEENT: No scleral icterus. Extraocular movements grossly intact. Hears conversational speech. No nasal drainage. NECK: Supple without lymphadenopathy. CHEST: Nonlabored respirations with equal bilateral excursions. CARDIOVASCULAR: Irregular rate and rhythm. Distal 2+ pulses. ABDOMEN: Obese, soft, nontender, nondistended. MUSCULOSKELETAL: No clubbing, cyanosis. Gross strength 5/5 distal lower extremities. NEURO: No focal or lateralizing signs. Cranial nerves 2 through 12 grossly within normal limits. PSYCH: Appropriate affect. Alert and oriented to person, place and time. SKIN: Good skin turgor. Well perfused. ASSESSMENT: 1. Morbid obesity due to excess calories 2. Body mass index of 42.3 initial 3. Osteoarthritis of the knees. 4. Atrial fibrillation 5. Hypertensive heart disease. 6. Hyperlipidemia 7. Osteoarthritis of the back 8. Chronic anticoagulant use PLAN: 1. Surgical options including a band, gastric bypass, sleeve gastrectomy were described in detail. Alternatives such as gastric balloon including duodenal switch were described. 2. She has selected a Minda-en-Y gastric bypass. An 8 page secondary consent form including benefits and risks and nutritional deficiencies, need for further surgery, bowel obstruction, inadequate weight loss were reviewed. Robotic- assisted approach were described. 3. Inpatient hospitalization over 2 nights described. 4. Patient has high perioperative risk due to cardiomyopathy as well as chronic Coumadin use. Past Medical History Past Medical History: Atrial Fibrillation, Hyperlipidemia, Hypertension, Osteoarthritis (OA) Additional Past Medical History / Comment(s): PT STATES THAT SHE FELL WHILE IN [place] ON Thursday06/28/18 AND BRUISED HER RT ARM AND CANNOT BEAR MUCH WEIGHT ON HER LEFT FOOT. History of Any Multi-Drug Resistant Organisms: None Reported Past Surgical History: Back Surgery, Heart Catheterization, Orthopedic Surgery Additional Past Surgical History / Comment(s): laminectomy, colonoscopies, Carpal Tunnel, feet -bone spurs, shoulder & knee arthroscopy, cervical fusion, recent EGD Past Anesthesia/Blood Transfusion Reactions: No Reported Reaction Additional Past Anesthesia/Blood Transfusion Reaction / Comment(s): pt adopted Smoking Status: Former smoker - Past Family History Mother Family Medical History: Unable to Obtain Additional Family Medical History / Comment(s): Adopted Medications and Allergies Home Medications Medication Instructions Recorded Confirmed Type Atorvastatin [Lipitor] 40 mg PO QAM 10/30/17 06/15/19 History Metoprolol Tartrate [Lopressor] 50 mg PO BID 07/01/18 06/15/19 History Warfarin Sodium [Coumadin] 2.5 mg PO TUTHSA 07/01/18 06/15/19 History Warfarin [Coumadin] 5 mg PO SUMOWEFR 07/01/18 06/15/19 History amLODIPine [Norvasc] 5 mg PO QAM 07/01/18 06/15/19 History Ergocalciferol [Vitamin D2 50,000 unit PO SA 03/30/19 06/15/19 History (DRISDOL)] Hydrochlorothiazide [Hydrodiuril] 12.5 mg PO DAILY 06/15/19 06/15/19 History Losartan Potassium [Cozaar] 100 mg PO DAILY 06/15/19 06/15/19 History Allergies Allergy/AdvReac Type Severity Reaction Status Date / Time latex Allergy Rash/Hives Verified 06/15/19 14:43
[~2019-06-20 07:18] MED LIST changes: +ACETAMINOPHEN IV (For NPO) 1,000 MG in EMPTY BAG 1 BAG IVPB ONE; +CHLORHEXIDINE GLUCONATE 15 ML CUP MUCOUS MEM ONE; +DEXAMETHASONE SOD PHOSPHATE 10 MG/ML 1 ML VIAL IV ONE; +ENOXAPARIN 40 MG/0.4 ML SYRINGE SQ STA; -LACTATED RINGERS 1,000 ML IV SCH; -LIDOCAINE 1% 20 ML VIAL (10MG/ML) FOR IV START INTRADERMA PRN; +MIDAZOLAM 2 MG/2 ML VIAL IV PRN; +ONDANSETRON 4 MG/2 ML VIAL IVP ONE; +PANTOPRAZOLE 40 MG/10 ML VIAL IV STA
[2019-06-20] MEDS: LIDOCAINE 1% (10MG/ML) FOR IV START INTRADERMA PRN (08:20)
[2019-06-20] MEDS: LACTATED RINGERS 1,000 ML IV SCH ×2 (08:20→21:35)
[2019-06-20 09:17] LABS: INR 1.1 (<1.2); Prothrombin Time 11.3 sec (9.0-12.0)
[2019-06-20] MEDS ORDERED: PROPOFOL 10 MG/ML 20 ML VIAL IV ONE (09:35)
[2019-06-20] MEDS ORDERED: fentaNYL (PF) 50 MCG/ML 2 ML AMP ONE (09:35)
[2019-06-20] MEDS ORDERED: ROCURONIUM BROMIDE 10 MG/ML 5 ML VIAL IV ONE (09:35)
[2019-06-20] MEDS ORDERED: MIDAZOLAM 2 MG/2 ML VIAL ONE (09:35)
[2019-06-20] MEDS ORDERED: GLYCOPYRROLATE 0.2 MG/ML 2 ML VIAL ONE (09:35)
[2019-06-20] MEDS ORDERED: NEOSTIGMINE 1 MG/ML 10 ML VIAL ONE (09:35)
[2019-06-20] MEDS ORDERED: LIDOCAINE 1% INJ 10MG/ML (20 ML MDV) ONE (09:35)
[2019-06-20] MEDS ORDERED: ePHEDrine SULFATE/0.9% NACL/PF 50 MG/5 ML SYRINGE IV ONE (09:35)
[2019-06-20] MEDS ORDERED: LIDOCAINE 1%-EPI 1:100,000 20 ML VIAL SQ ONE (10:33)
[2019-06-20] MEDS ORDERED: LACTATED RINGERS 1,000 ML IV ONE ×2 (10:34→12:31)
[2019-06-20] MEDS: fentaNYL (PF) 50 MCG/ML 2 ML AMP IV PRN ×3 (11:19→11:31)
[2019-06-20] MEDS: HYDROmorphone 1 MG/ML 1 ML SYRINGE IVP ONE ×4 (11:41→13:39)
[2019-06-20] MEDS ORDERED: NALOXONE 0.4 MG/ML 1 ML VIAL IV PRN (11:53)
[2019-06-20] MEDS ORDERED: HYDROmorphone 1 MG/ML 1 ML SYRINGE IVP ONE (12:34)
--- NOTE | 2019-06-20 13:41 | P.OP ---
Date of Procedure: 06/20/19 Description of Procedure: SURGEON: SAMMY ROBLES MD PREOPERATIVE DIAGNOSES: 1. Morbid obesity due to excess calories 2. Body mass index of 42.3 initial 3. Osteoarthritis of the knees. 4. Past history of atrial fibrillation 5. Hypertensive heart disease. 6. Hyperlipidemia 7. Osteoarthritis of the back 8. Chronic anticoagulant use POSTOPERATIVE DIAGNOSES: 1. Morbid obesity due to excess calories 2. Body mass index of 42.3 initial 3. Osteoarthritis of the knees. 4. Past history of atrial fibrillation 5. Hypertensive heart disease. 6. Hyperlipidemia 7. Osteoarthritis of the back 8. Chronic anticoagulant use 9. Urethral stricture, requiring 14 Fr degroot 10. Diffuse severe peritoneal adhesions greater omentum to abdominal wall 11. Interlooped adhesions ligament of Treitz OPERATION: 1. Abandoned gastric bypass for robotic-assisted da Roge Xi laparoscopic extensive lysis of adhesions over 30 minutes Anesthesia: GETA, local Estimated Blood Loss (ml): 2 Pathology: none sent COMPLICATIONS: None. Condition: stable Operative Findings: 1. Diffuse complete intra-abdominal adhesions greater omentum to anterior abdominal wall from epigastrium to pelvis addressed using vessel sealer 2. Interloop adhesions identified at ligament of Treitz 3. With diffuse adhesions, Minda-en-Y gastric bypass abandoned secondary to high risk of small bowel obstruction due to intra-abdominal adhesions INDICATIONS: Renetta Cardenas is a 69-year-old female who comes with lifelong morbid obesity. She comes in with co-morbidities of hypertension, osteoarthritis of the knees, and hyperlipidemia. She comes in with past history of atrial fibrillation and is on blood thinners. She is looking into the gastric bypass. Her highest weight was 220 pounds. She has lost 30 pounds by cutting down carbs and sweets and treadmill. No reports of severe heartburn. She is adopted. She had colonoscopy 2 years ago. She has easy bruising. At height of 5 feet 0.5 inches, her ideal body weight is 127 pounds. Highest weight was 220 pounds, BMI 42.3. She comes in 192 pounds, BMI 37.0. She is 65 pounds overweight. A second-generation bariatric consent form was described in detail including the possibility of protein malnutrition, leaks, gastrojejunal stricture, venous thrombosis, need for further surgery for which she demonstrated understanding. Benefits and risks of the procedure were described at length. Informed consent was obtained. DESCRIPTION OF PROCEDURE: Patient was brought to the operating room, placed in supine position. After general induction, the abdomen had been prepped and draped in standard sterile fashion. The robotic da Roge XI system was primed. After a timeout protocol was performed, the patient had been prepped and draped in standard sterile fashion. A 5 mm 0 degrees laparoscopic trocar entry was performed along the left upper quadrant. The abdomen was insufflated to 15 mmHg pressure which was tolerated well. Diagnostic laparoscopy demonstrated severe intra-abdominal adhesions involving the entire abdomen including midline and pelvis. Greater omentum to the abdominal wall adhesions were found. Next, three 8 mm robotic ports were placed along the left abdominal wall, 8 cm away from each other. The robot was docked along the right abdomen. The patient was repositioned in reverse Trendelenburg position of 20-degrees. Instruments were interchanged using 3 ports for a grasper, vessel sealer, and scissors with cautery. Instruments were interchanged by the video production assistant. I sat at the console. Extensive lysis of adhesions over 30 minutes was performed. Carefully the adhesions were taken down without injury to the small bowel using vessel sealer and cautery on scissors to address severe adhesions of the greater omentum and abdominal wall. At the ligament of Trietz, interloop adhesions were found. With the severity of adhesions, gastric bypass was abandoned secondary to high risk for future bowel obstructions. The liver was smooth and unremarkable. The gallbladder was unremarkable in appearance. Hemostasis was excellent and abdomen was dry upon completion. The robot was undocked. All pneumoperitoneum and instruments were evacuated from the abdominal cavity. The incisions were reapproximated using 4-0 Monocryl in an interrupted subcuticular fashion. Please note along the trocar sites, local anesthetic was placed as a field block prior to insertion of all instruments. Liquid glue was applied to the skin. At the end of the procedure needle, sponge, and instrument count had been verified correct by the surgical first assistant. The patient was transferred to postanesthesia care unit in stable condition. Intraoperative images including findings were described to the patients family.
[2019-06-20] MEDS: ACETAMINOPHEN IV (For NPO) 1,000 MG in EMPTY BAG 1 BAG IVPB ONE ×2 (16:11→16:29)
[2019-06-20] MEDS: 0.9% NACL WITH KCL 20 MEQ/L 1,000 ML IV SCH ×2 (16:12→21:35)
[2019-06-20] MEDS: METOPROLOL TARTRATE 50 MG TAB PO SCH (21:34)
[2019-06-20] MEDS: SIMETHICONE 80 MG CHEWABLE PO SCH ×2 (21:35→21:53)
[2019-06-21] MEDS: 0.9% NACL WITH KCL 20 MEQ/L 1,000 ML IV SCH ×4 (01:15→23:18)
[2019-06-21] MEDS ORDERED: IOPAMIDOL CONTRAST (ORAL USE) VIAL PO PRN (09:14)
[2019-06-21] MEDS: LOSARTAN 50 MG TAB PO SCH (09:25)
[2019-06-21] MEDS: amLODIPine 5 MG TAB PO SCH (09:25)
[2019-06-21] MEDS: METOPROLOL TARTRATE 50 MG TAB PO SCH ×2 (09:25→21:45)
[2019-06-21] MEDS: ENOXAPARIN 40 MG/0.4 ML SYRINGE SQ SCH (09:25)
[2019-06-21] MEDS: SIMETHICONE 80 MG CHEWABLE PO SCH ×4 (09:25→21:46)
[2019-06-21] MEDS: HYDROCHLOROTHIAZIDE 12.5 MG CAP PO SCH (09:25)
--- NOTE | 2019-06-21 12:21 | P.GSCN ---
History of Present Illness Consult date: 06/21/19 Reason for Consult: Urethral stricture History of present illness: The patient is a 69-year-old female with a history of moribund obesity who was admitted for elective bariatric surgery. At the time of the surgery through was apparently some difficulty in placement of a [place] catheter however a 14-[place] catheter was successfully inserted. The catheter was removed and the patient has been voiding since that time. She has no previous history of urinary retention. She says that she had catheters following surgery on her cervical spine and lumbosacral spine and had no apparent problems with placement of the catheters at that time. She says she usually voids every 3-5 hours during the day and rarely if ever at night. She has complained of a slow urinary flow for years which she rates as a 4-5 out of 10. She is uncertain that she only voids completely. She complains of urgency and says that she has urge incontinence 2 or 3 times per week. She also has urine leakage with coughing and straining which dates back at least 40 years. She does not wear a pad due to her leakage as apparently the leakage is not that bothersome. She has no history of urinary tract infection or gross hematuria. She has chronic constipation and says that she has a bowel movement sometimes only once per week. She has taken lactulose for this in the past but says that she does not take it on a regular basis. Review of Systems All systems: negative (reviewed and no additional complaints were noted) Past Medical History Past Medical History: Atrial Fibrillation, Hyperlipidemia, Hypertension, Osteoarthritis (OA) Additional Past Medical History / Comment(s): PT STATES THAT SHE FELL WHILE IN [place] ON Thursday06/28/18 AND BRUISED HER RT ARM AND CANNOT BEAR MUCH WEIGHT ON HER LEFT FOOT. History of Any Multi-Drug Resistant Organisms: None Reported Past Surgical History: Back Surgery, Heart Catheterization, Orthopedic Surgery (Right shoulder and left knee) Additional Past Surgical History / Comment(s): laminectomy, colonoscopies, Carpal Tunnel, feet -bone spurs, shoulder & knee arthroscopy, cervical fusion, recent EGD Past Anesthesia/Blood Transfusion Reactions: No Reported Reaction Additional Past Anesthesia/Blood Transfusion Reaction / Comm: pt adopted Past Psychological History: No Psychological Hx Reported Smoking Status: Former smoker Past Alcohol Use History: Occasional Additional Past Alcohol Use History / Comment(s): Smoked from her teens until 1990, 5 PPD. Past Drug Use History: None Reported - Past Family History Mother Family Medical History: Unable to Obtain Additional Family Medical History / Comment(s): Adopted Medications and Allergies Home Medications Medication Instructions Recorded Confirmed Type Atorvastatin [Lipitor] 40 mg PO QAM 10/30/17 06/15/19 History Metoprolol Tartrate [Lopressor] 50 mg PO BID 07/01/18 06/15/19 History amLODIPine [Norvasc] 5 mg PO QAM 07/01/18 06/15/19 History Ergocalciferol [Vitamin D2 50,000 unit PO SA 03/30/19 06/15/19 History (DRISDOL)] Hydrochlorothiazide [Hydrodiuril] 12.5 mg PO DAILY 06/15/19 06/15/19 History Losartan Potassium [Cozaar] 100 mg PO DAILY 06/15/19 06/15/19 History Acetaminophen Tab [Tylenol Tab] 1,000 mg PO Q6HR PRN #30 tablet 06/20/19 Rx Allergies Allergy/AdvReac Type Severity Reaction Status Date / Time latex Allergy Rash/Hives Verified 06/20/19 07:55 Surgical - Exam Vital Signs Temp Pulse Resp BP Pulse Ox 97.5 F L 50 L 16 135/61 96 06/20/19 08:20 06/20/19 08:20 06/20/19 08:20 06/20/19 08:20 06/20/19 08:20 - General well developed, well nourished, no distress, obese - ENT no hearing loss - Neck no masses, no lymphadectomy - Respiratory normal respiratory effort - Abdomen Abdomen: soft, non tender, no organomegaly Results - Labs 06/20/19 08:20 Assessment and Plan (1) Slow urinary stream Narrative/Plan: It's unclear to me whether the patient has a urethral stricture or whether there was just some difficulty in placement of the catheter interop related to the patient's obesity. It would be unusual for a woman to have urethral stricture and apparent she had catheters at least twice in the past which were placed without difficulty. A postvoid residual will be checked to determine how well the patient is voiding. Current Visit: Yes Status: Acute Code(s): R39.198 - OTHER DIFFICULTIES WITH MICTURITION SNOMED Code(s): 38017519 (2) Mixed stress and urge urinary incontinence Narrative/Plan: The patient has chronic urinary incontinence which appears to be a combination of both stress and urge incontinence by history. This is in part related to her obesity. Once the patient has lost weight if her incontinence remains bothers ome then further evaluation as an outpatient could be considered. Current Visit: Yes Status: Acute Code(s): N39.46 - MIXED INCONTINENCE SNOMED Code(s): 780236562
--- NOTE | 2019-06-21 13:44 | CT ---
EXAMINATION TYPE: CT abdomen pelvis w con DATE OF EXAM: 06/21/2019 COMPARISON: None HISTORY: Constipation CT DLP: 1614.5 mGycm Automated exposure control for dose reduction was used. TECHNIQUE: Helical acquisition of images from the lung bases through the pelvis have been completed. CONTRAST: Performed with Oral Contrast and with IV Contrast, patient injected with 100 mL of Isovue 300. FINDINGS: Within the subcutaneous fat in the left lower quadrant there is some lucency present as wel l as anteriorly towards the midline, some inflammatory changes present in the left lower quadrant sub cutaneous fat, correlate for post procedural change LUNG BASES: There is some minimal dependent atelectatic changes, small right pleural effusion AORTA: No significant abnormality is appreciated. LIVER/GB: There is pericholecystic fluid, gallbladder is distended. Mass effect is noted on the duode num. Liver shows no mass. PANCREAS: No significant abnormality is seen. SPLEEN: No significant abnormality is seen. ADRENALS: No significant abnormality is seen. KIDNEYS: Probable extrarenal pelvis present on the left versus partial UPJ obstruction, no evident ne phrolithiasis or ureteral calculus. REPRODUCTIVE ORGANS: Uterus is absent. Left ovary and right ovary unremarkable BOWEL: No significant abnormality is seen. FREE AIR: No Free Air visible. ASCITES: None visible. PELVIC ADENOPATHY: None visualized. RETROPERITONEAL ADENOPATHY: No Retroperitoneal Adenopathy visible. URINARY BLADDER: No significant abnormality is seen. OSSEOUS STRUCTURES: Degenerative disc changes are present in the lumbar spine. IMPRESSION: CHOLECYSTITIS, RESULTS RELAYED TO THE PATIENT'S NURSE ON THE RENNER AT THE TIME INTERPRETATION. NO EVID ENT RENAL STONE OR HYDRONEPHROSIS, SUSPECT PARTIAL UPJ OBSTRUCTION ON THE LEFT.
--- NOTE | 2019-06-21 14:34 | P.PN ---
<BoydConnie Magdaleno - Last Filed: 06/21/19 14:26> Subjective Progress Note Date: 06/21/19 CHIEF COMPLAINT: Morbid obesity HISTORY OF PRESENT ILLNESS: 69-year-old female who is status post lysis of adhesions. Minda-en-Y gastric bypass was performed secondary to high risk of small bowel obstruction due to intra-abdominal adhesions. Postop day #1. Patient seen and examined at the bedside with Dr. Hernandez. Patient denies abdominal pain. Denies nausea or vomiting. Patient has been on telemetry overnight with no evidence of atrial fibrillation per apparatus engineering technologist. PHYSICAL EXAM: VITAL SIGNS: Currently stable. GENERAL: Well-developed in no acute distress. HEENT: No sclera icterus. Extraocular movements grossly intact. Moist buccal mucosa. Head is atraumatic, normocephalic. Hears conversational speech. No nasal drainage. NECK: Supple without lymphadenopathy. CHEST: Non-labored respirations and equal bilateral excursions. CARDIOVASCULAR: Regular rate with regular rhythm. Palpable 2+ radial pulses. ABDOMEN: Soft. Nondistended. Appropriate surgical tenderness. MUSCULOSKELETAL: No clubbing, cyanosis or edema. NEUROLOGIC: No focal or lateralizing signs. Cranial nerves II through XII grossly intact. PSYCH: Appropriate affect. Alert and oriented to person, place and time. SKIN: Well perfused. Good skin turgor. ASSESSMENT: 1. Previous history of bilateral inguinal hernia repair 2. Abnormal computed tomography scan of recurrent left inguinal hernia 3. History of multiple abdominal surgeries 4. History of peritoneal adhesions 5. Hyperlipidemia 6. Hypertensive heart disease 7. Polycythemia 8. Osteopenia 9. Iron deficiency anemia 10. Esophageal dysmotility 11. Periumbilical pain 12. Severe peritoneal adhesions greater omentum to the abdominal wall 13. Possible ureteral stricture 14. Chronic constipation PLAN: -Dr. Hernandez reports having to use a 14F catheter in the OR for patient and suspects ureteral stricture. Will consult urology for evaluation -Continue to hold Coumadin. Will not resume at the time of discharge per Dr. Hernandez -Resume diet -Pain control -Obtain CT abdomen and pelvis due to history of bowel obstructions Nurse practitioner note has been reviewed by physician. Signing provider agrees with the documented findings, assessment, and plan of care. Objective - Vital Signs Vital signs: Vital Signs Temp 97.8 F 06/21/19 07:30 Pulse 85 06/21/19 07:30 Resp 16 06/21/19 07:30 BP 137/60 06/21/19 07:30 Pulse Ox 94 L 06/21/19 10:10 Intake & Output 06/20/19 06/21/19 06/21/19 18:59 06:59 18:59 Intake Total 2350 1550 Output Total 52 Balance 2298 1550 Weight 85 kg Intake: IV 2150 Intake, IV Titration 200 350 Amount 0.9% NaCl with KCl 20 Meq 200 /l 1,000 ml @ 100 mls/hr IV .Q10H [facility] Rx#: [id number] 0.9% NaCl with KCl 20 Meq 150 /l 1,000 ml @ 150 mls/hr IV .Q6H40M [facility] Rx#: [id number] Lactated Ringers 1,000 ml 200 @ 0 mls/hr IV .STK-MED ONE Rx#:[id number] Oral 1200 Output: Urine 50 Estimated Blood Loss 2 Other: Voiding Method Toilet # Voids 2 2 # Bowel Movements 0 - Labs CBC & Chem 7: 06/20/19 08:20 <Fani Hernandez N - Last Filed: 06/21/19 21:29> Subjective HIDA scan reviewed without findings of cystic duct obstruction. Will re-check CMP. CT reviewed as well. Possible cholecystectomy due new finding unrelated to recent procedure. Objective - Vital Signs Vital signs: Vital Signs Temp 99.1 F 06/21/19 19:30 Pulse 85 06/21/19 19:30 Resp 18 06/21/19 19:30 BP 153/75 06/21/19 19:30 Pulse Ox 95 06/21/19 19:30 Intake & Output 06/21/19 06/21/19 06/22/19 06:59 18:59 06:59 Intake Total 1550 Balance 1550 Intake: Intake, IV Titration 350 Amount 0.9% NaCl with KCl 20 Meq 200 /l 1,000 ml @ 100 mls/hr IV .Q10H [facility] Rx#: [id number] 0.9% NaCl with KCl 20 Meq 150 /l 1,000 ml @ 150 mls/hr IV .Q6H40M [facility] Rx#: [id number] Oral 1200 Other: Voiding Method Toilet # Voids 2 2 # Bowel Movements 0 - Labs CBC & Chem 7: 06/21/19 14:45 06/21/19 14:45 Labs: Abnormal Lab Results - Last 24 Hours (Table) 06/21/19 06/21/19 Range/Units 14:45 14:45 WBC 11.2 H (3.8-10.6) k/uL Neutrophils # 9.8 H (1.3-7.7) k/uL Lymphocytes # 0.7 L (1.0-4.8) k/uL Sodium 134 L (137-145) mmol/L BUN 24 H (7-17) mg/dL Glucose 141 H (74-99) mg/dL Calcium 8.3 L (8.4-10.2) mg/dL AST 40 H (14-36) U/L Total Protein 6.0 L (6.3-8.2) g/dL
[2019-06-21 15:21] LABS: Basophils % (A) 0 %; Eosinophils % (A) 0 %; HCT 38.1 % (34.0-46.0); HGB 12.4 gm/dL (11.4-16.0); Lymphocytes # (A) 0.7 k/uL (1.0-4.8); Lymphocytes % (A) 7 %; MCH 29.5 pg (25.0-35.0); MCHC 32.5 g/dL (31.0-37.0); MCV 90.6 fL (80.0-100.0); Mean Platelet Volume 7.7; Monocytes # (A) 0.5 k/uL (0-1.0); Monocytes % (A) 5 %; Neutrophils # (A) 9.8 k/uL (1.3-7.7); Neutrophils % (A) 88 %; Platelet Count 192 k/uL (150-450); RBC 4.21 m/uL (3.80-5.40); RDW 14.3 % (11.5-15.5); WBC 11.2 k/uL (3.8-10.6)
[2019-06-21 15:32] LABS: Albumin 3.6 g/dL (3.5-5.0); Calcium 8.3 mg/dL (8.4-10.2); Potassium 4.7 mmol/L (3.5-5.1); Total Bilirubin 0.6 mg/dL (0.2-1.3)
[2019-06-21] MEDS: PIPERACILLIN-TAZOBACTAM 3.375 GM in SODIUM CHLORIDE 0.9% 100 ML IVPB SCH ×2 (15:58→23:18)
[2019-06-21] MEDS: LACTATED RINGERS 1,000 ML IV SCH (19:22)
--- NOTE | 2019-06-21 20:41 | NM ---
EXAMINATION TYPE: NM hepatobiliary w CCK DATE OF EXAM: 06/21/2019 COMPARISON: NONE HISTORY: TECHNIQUE: After the intravenous administration of mCi Tc 99m Mebrofenin hepatobiliary scintigraphy i s performed. Immediate images post injection. FINDINGS: The patient was injected with 3 mCi of technetium 99m mebrofenin. Images were obtained up to 60 minut es. There is prompt uptake of the tracer by the liver that has normal size and contour. Tracer is mos tly cleared from the liver at 60 minutes. There is tracer seen in the gallbladder at 30 minutes. The patient was injected with 1.7 mcg of CCK and additional images obtained for 30 minutes. The trace r appears to clear entirely from the gallbladder on the delayed images after the CCK. The gallbladder ejection fraction is 87%. IMPRESSION: Normal hepatobiliary scan. Normal gallbladder ejection fraction of 87.
[2019-06-22 07:52] LABS: Basophils % (A) 0 %; Eosinophils % (A) 0 %; HCT 34.7 % (34.0-46.0); HGB 11.4 gm/dL (11.4-16.0); Lymphocytes # (A) 1.1 k/uL (1.0-4.8); Lymphocytes % (A) 13 %; MCH 29.6 pg (25.0-35.0); MCHC 32.8 g/dL (31.0-37.0); MCV 90.2 fL (80.0-100.0); Mean Platelet Volume 7.9; Monocytes # (A) 0.5 k/uL (0-1.0); Monocytes % (A) 6 %; Neutrophils # (A) 6.9 k/uL (1.3-7.7); Neutrophils % (A) 80 %; Platelet Count 147 k/uL (150-450); RBC 3.85 m/uL (3.80-5.40); RDW 14.4 % (11.5-15.5); WBC 8.7 k/uL (3.8-10.6)
[2019-06-22 08:05] LABS: Albumin 3.2 g/dL (3.5-5.0); Calcium 8.1 mg/dL (8.4-10.2); Potassium 4.2 mmol/L (3.5-5.1); Total Bilirubin 0.8 mg/dL (0.2-1.3); Total Protein 5.7 g/dL (6.3-8.2)
--- NOTE | 2019-06-22 08:30 | P.PN ---
Progress Note - Text Progress Note Date: 06/22/19 The patient has been voiding in amounts up to 600 mL at a time. She reportedly had a postvoid residual of approximately 300 mL however the actual amount was not recorded. This will be rechecked this morning. Computed tomography scan of the abdomen and pelvis showed some fullness of the right and left renal pelvis however both kidneys functioned promptly and it is likely that this is an incidental finding and does not reflect true obstruction. From my standpoint the patient can be discharged. She can see me as an outpatient to recheck a postvoid residual and if remains elevated then urethral dilation may be considered.
[2019-06-22] MEDS: METOPROLOL TARTRATE 50 MG TAB PO SCH ×2 (09:15→23:01)
[2019-06-22] MEDS: PIPERACILLIN-TAZOBACTAM 3.375 GM in SODIUM CHLORIDE 0.9% 100 ML IVPB SCH ×2 (09:15→16:30)
[2019-06-22] MEDS: HYDROCHLOROTHIAZIDE 12.5 MG CAP PO SCH (09:15)
[2019-06-22] MEDS: LOSARTAN 50 MG TAB PO SCH (09:15)
[2019-06-22] MEDS: amLODIPine 5 MG TAB PO SCH (09:15)
[2019-06-22] MEDS: ENOXAPARIN 40 MG/0.4 ML SYRINGE SQ SCH (09:16)
[2019-06-22] MEDS: SIMETHICONE 80 MG CHEWABLE PO SCH ×4 (09:23→23:05)
--- NOTE | 2019-06-22 10:21 | P.PN ---
<Connie Boyd - Last Filed: 06/22/19 10:17> Subjective Progress Note Date: 06/22/19 CHIEF COMPLAINT: Morbid obesity HISTORY OF PRESENT ILLNESS: 69-year-old female who is status post lysis of adhesions. Minda-en-Y gastric bypass was unable to be performed secondary to high risk of small bowel obstruction due to intra-abdominal adhesions. Postop day #2. Patient underwent CT abdomen pelvis yesterday revealing acute cholecystitis. HIDA scan was performed revealing normal ejection fraction without findings of cystic duct obstruction. Patient reports some epigastric fullness and discomfort this morning. She is tolerating diet. Denies nausea or vomiting. She reports having a bowel movement yesterday. WBC 8.7. Hemoglobin 11.4. Bilirubin 0.8. AST 34. ALT 21. Patient febrile this morning with a temperature of 100.2F. Repeat 98.8F. Patient reports she is using her incentive spirometer hourly. She has been ambulating in her room. She has been voiding without difficulty. PHYSICAL EXAM: VITAL SIGNS: Reviewed. GENERAL: Well-developed in no acute distress. HEENT: No sclera icterus. Extraocular movements grossly intact. Moist buccal mucosa. Head is atraumatic, normocephalic. Hears conversational speech. No nasal drainage. NECK: Supple without lymphadenopathy. CHEST: Non-labored respirations and equal bilateral excursions. CARDIOVASCULAR: Regular rate with regular rhythm. Palpable 2+ radial pulses. ABDOMEN: Soft. Nondistended. Appropriate surgical tenderness. MUSCULOSKELETAL: No clubbing, cyanosis or edema. NEUROLOGIC: No focal or lateralizing signs. Cranial nerves II through XII grossly intact. PSYCH: Appropriate affect. Alert and oriented to person, place and time. SKIN: Well perfused. Good skin turgor. ASSESSMENT: 1. Previous history of bilateral inguinal hernia repair 2. Abnormal computed tomography scan of recurrent left inguinal hernia 3. History of multiple abdominal surgeries 4. History of peritoneal adhesions 5. Hyperlipidemia 6. Hypertensive heart disease 7. Polycythemia 8. Osteopenia 9. Iron deficiency anemia 10. Esophageal dysmotility 11. Periumbilical pain 12. Severe peritoneal adhesions greater omentum to the abdominal wall 13. Possible ureteral stricture 14. Chronic constipation 15. Acute cholecystitis PLAN: -NPO -Continue IV antibiotics -Urology on consult. Appreciate recommendations -Continue to hold Coumadin. Will not resume at the time of discharge per Dr. Hernandez -Possible cholecystectomy this afternoon per Dr. Hernandez Nurse practitioner note has been reviewed by physician. Signing provider agrees with the documented findings, assessment, and plan of care. Objective - Vital Signs Vital signs: Vital Signs Temp 98.8 F 06/22/19 09:14 Pulse 106 H 06/22/19 07:00 Resp 16 06/22/19 07:00 BP 138/61 06/22/19 07:00 Pulse Ox 95 06/22/19 07:00 Intake & Output 06/21/19 06/22/19 06/22/19 18:59 06:59 18:59 Intake Total 1550 600 Output Total 50 Balance 1550 550 Intake: Intake, IV Titration 350 600 Amount 0.9% NaCl with KCl 20 Meq 200 600 /l 1,000 ml @ 100 mls/hr IV .Q10H [facility] Rx#: [id number] 0.9% NaCl with KCl 20 Meq 150 /l 1,000 ml @ 150 mls/hr IV .Q6H40M [facility] Rx#: [id number] Oral 1200 Output: Urine 50 Other: Voiding Method Toilet Toilet # Voids 2 2 # Bowel Movements 0 0 - Labs CBC & Chem 7: 06/22/19 06:41 06/22/19 06:41 Labs: Abnormal Lab Results - Last 24 Hours (Table) 06/21/19 06/21/19 06/22/19 Range/Units 14:45 14:45 06:41 WBC 11.2 H (3.8-10.6) k/uL Plt Count 147 L (150-450) k/uL Neutrophils # 9.8 H (1.3-7.7) k/uL Lymphocytes # 0.7 L (1.0-4.8) k/uL Sodium 134 L (137-145) mmol/L BUN 24 H (7-17) mg/dL Glucose 141 H (74-99) mg/dL Calcium 8.3 L (8.4-10.2) mg/dL AST 40 H (14-36) U/L Total Protein 6.0 L (6.3-8.2) g/dL Albumin (3.5-5.0) g/dL 06/22/19 Range/Units 06:41 WBC (3.8-10.6) k/uL Plt Count (150-450) k/uL Neutrophils # (1.3-7.7) k/uL Lymphocytes # (1.0-4.8) k/uL Sodium (137-145) mmol/L BUN (7-17) mg/dL Glucose 105 H (74-99) mg/dL Calcium 8.1 L (8.4-10.2) mg/dL AST (14-36) U/L Total Protein 5.7 L (6.3-8.2) g/dL Albumin 3.2 L (3.5-5.0) g/dL <Fani Hernandez N - Last Filed: 06/24/19 17:46> Subjective Patient presents with fevers including CT consistent with acute cholecystitis. Will proceed with cholecystectomy. Objective - Vital Signs Vital signs: Vital Signs Temp 98.3 F 06/24/19 15:00 Pulse 61 06/24/19 15:00 Resp 17 06/24/19 15:00 BP 107/44 06/24/19 15:00 Pulse Ox 94 L 06/24/19 15:00 Intake & Output 06/23/19 06/24/19 06/24/19 18:59 06:59 18:59 Intake Total 800 Output Total 200 Balance 800 -200 Intake: Intake, IV Titration 800 Amount 0.9% NaCl with KCl 20 Meq 800 /l 1,000 ml @ 100 mls/hr IV .Q10H [facility] Rx#: [id number] Output: Urine 200 Other: Voiding Method Toilet Toilet Toilet Bedside Commode # Voids 1 1 1 - Labs CBC & Chem 7: 06/23/19 06:09 06/24/19 06:10 Labs: Abnormal Lab Results - Last 24 Hours (Table) 06/24/19 Range/Units 06:10 Sodium 135 L (137-145) mmol/L Calcium 7.4 L (8.4-10.2) mg/dL AST 113 H (14-36) U/L ALT 129 H (4-34) U/L Alkaline Phosphatase 256 H (38-126) U/L Total Protein 5.0 L (6.3-8.2) g/dL Albumin 2.6 L (3.5-5.0) g/dL
--- NOTE | 2019-06-22 10:22 | CDI ---
Documentation Clarification Form Date: 06/22/2019 1019 CDS: Katiana Patel RN, CCDS Admit Date: 06/04/2019 0718 Patient Name: Renetta Cardenas ATTENTION: The Clinical Documentation Specialists (CDI) and [facility] Coding Staff appreciate your assistance in clarifying documentation. Please respond to the clarification below the line at the bottom and electronically sign. The CDI & [facility] Coding staff will review the response and follow-up if needed. Please note: Queries are made part of the Legal Health Record. If you have any questions, please contact the author of this message via ITS. Dr. Hernandez Atrial Fibrillation is documented in the H&P and requires further specificity History/Risk Factors: Atrial Fib, HTN Clinical Indicators: 06/19 H&P: "She comes in with atrial fibrillation and is on blood thinners." EKG/telemetry:06/21 Progress Note: "Patient has been on telemetry overnight with no evidence of atrial fibrillation per automotive tire technician." Treatment: Lopressor 50mg BID via Peg tube In your professional opinion, can you please clarify the type of Atrial Fibrillation, if known? Chronic/Permanent Paroxysmal Persistent Other, please specify ____Past history of afib____ Unable to determine (Last Revision: August 2017) ____Past history of afib____ 06/22/19 KM 12:35 MTDD
[2019-06-22] MEDS: 0.9% NACL WITH KCL 20 MEQ/L 1,000 ML IV SCH (15:34)
[2019-06-22] MEDS ORDERED: IV FLUID CONTINUATION 1,000 ML IV ONE (16:47)
[2019-06-22] MEDS: LIDOCAINE 1% (10MG/ML) FOR IV START INTRADERMA PRN (17:07)
[2019-06-22] MEDS ORDERED: ONDANSETRON 4 MG/2 ML VIAL IVP ONE (17:07)
[2019-06-22] MEDS ORDERED: INDOCYANINE GREEN 25 MG VIAL IV STA (17:45)
[2019-06-22] MEDS ORDERED: HEPARIN SODIUM,PORCINE 5,000 UNIT/ML 1 ML VIAL SQ STA (17:45)
--- NOTE | 2019-06-22 17:46 | P.HPADDEND ---
H&P Addendum H&P Addendum Date: 06/22/19 CT of the abdomen pelvis shows acute cholecystitis. She has fever temperature. Will proceed with robot cholecystectomy
[2019-06-22] MEDS ORDERED: BUPIVACAIN-EPI 0.5%-1:200,000 30 ML VIAL SQ ONE ×2 (18:08→18:44)
[2019-06-22] MEDS ORDERED: SUCCINYLCHOLINE CHLORIDE 100 MG/5 ML SYR IV ONE (18:14)
[2019-06-22] MEDS ORDERED: ROCURONIUM BROMIDE 10 MG/ML 5 ML VIAL IV ONE (18:14)
[2019-06-22] MEDS ORDERED: fentaNYL (PF) 50 MCG/ML 2 ML AMP ONE (18:14)
[2019-06-22] MEDS ORDERED: INDOCYANINE GREEN 25 MG VIAL IV ONE (18:14)
[2019-06-22] MEDS ORDERED: PROPOFOL 10 MG/ML 20 ML VIAL IV ONE (18:14)
[2019-06-22] MEDS ORDERED: HYDROmorphone (PF) 1 MG/ML ONE (18:14)
[2019-06-22] MEDS ORDERED: GLYCOPYRROLATE 0.2 MG/ML 2 ML VIAL ONE (18:14)
[2019-06-22] MEDS ORDERED: ePHEDrine SULFATE/0.9% NACL/PF 50 MG/5 ML SYRINGE IV ONE (18:14)
[2019-06-22] MEDS ORDERED: LIDOCAINE 1% INJ 10MG/ML (20 ML MDV) ONE (18:14)
[2019-06-22] MEDS ORDERED: MIDAZOLAM 2 MG/2 ML VIAL ONE (18:14)
[2019-06-22] MEDS ORDERED: NEOSTIGMINE 1 MG/ML 10 ML VIAL ONE (18:14)
[2019-06-22] MEDS ORDERED: LACTATED RINGERS 1,000 ML IV ONE ×4 (19:09→21:15)
[2019-06-22] MEDS: HYDROmorphone 0.5 MG/0.5 ML SYRINGE IVP ONE ×2 (21:04→21:15)
[2019-06-22] MEDS ORDERED: NALOXONE 0.4 MG/ML 1 ML VIAL IV PRN (21:14)
--- NOTE | 2019-06-22 21:14 | P.OP ---
Date of Procedure: 06/22/19 Description of Procedure: SURGEON: SAMMY ROBLES MD PREOPERATIVE DIAGNOSES: 1. Abnormal computed tomography scan for acute cholecystitis 2. History of severe peritoneal adhesions 3. Status post recent diagnostic laparoscopy with lysis of adhesions 4. Morbid obesity due to excess calories 5. Body mass index of 42.3 initial 6. Osteoarthritis of the knees. 7. Past history of atrial fibrillation 8. Hypertensive heart disease. 9. Hyperlipidemia 10. Osteoarthritis of the back 11. Chronic anticoagulant use POSTOPERATIVE DIAGNOSES: 1. Acute hydrops distended cholecystitis, over 15 cm 2. History of severe peritoneal adhesions 3. Status post recent diagnostic laparoscopy with lysis of adhesions 4. Morbid obesity due to excess calories 5. Body mass index of 42.3 initial 6. Osteoarthritis of the knees. 7. Past history of atrial fibrillation 8. Hypertensive heart disease. 9. Hyperlipidemia 10. Osteoarthritis of the back 11. Chronic anticoagulant use 12. Urethral stricture OPERATION: 1. Robotic-assisted da Roge Xi laparoscopic cholecystectomy, multiport with FIR EFLY Estimated Blood Loss (ml): 50 Pathology: other (gallbladder) Condition: stable COMPLICATIONS: None. Operative Findings: 1. Acute hydrops gallbladder larger than a human size 7 hand! INDICATIONS: The patient is a 69-year-old female who 2 days ago was scheduled to undergo robotic gastric bypass. Secondary to severe intra-abdominal adhesions, the case was aborted. Extensive lysis of adhesions were performed with diagnostic laparoscopy confirming adhesions of the bowel as well as an unr emarkable gallbladder at that time. CT of the abdomen and pelvis was ordered as she reports history of large bowel obstructions with chronic constipation. Additionally, urology consultation was obtained secondary to urethral stricture found intraoperatively. CT of the abdomen and pelvis demonstrated new findings of acute cholecystitis with compression along the duodenum. Clinically, patient denied any right upper quadrant or moderate epigastric pain. As result of her diagnostic studies, return to the OR for a new issue of acute cholecystitis was advised. Surgical intervention with a laparoscopic cholecystectomy was described at length including injury to the biliary tree, bleeding, infection, need for further surgery. Informed consent was obtained. Robotic assisted laparoscopic approach was described. Benefits and risks of the procedure including but not limited to bleeding, infection, injury to the biliary tree was described. Informed consent was obtained. DESCRIPTION OF PROCEDURE: Patient was brought to the operating room, placed in supine position. After general induction, the abdomen had been prepped and draped in standard sterile fashion. The robotic da Roge XI system was primed. After a timeout protocol was performed, the patient had been prepped and draped in standard sterile fashion. The patient was injected with indocyanine green. A 5 mm 0 degrees laparoscopic trocar entry was performed along the left upper quadrant. The abdomen insufflated to 15 mmHg pressure which was tolerated well. Diagnostic laparoscopy demonstrated no injury to bowel viscera or mesentery. No recurrent intra-abdominal peritoneal adhesions were found. Next, two 8 mm robotic ports were placed along the right upper abdomen. The camera 8-mm port was maintained along the epigastrium. Another 8 mm port was placed along the left upper abdominal wall after exchanging the 5 mm port. Please note that the ports were placed at least 10 to 15 cm away from the target anatomy of the gallbladder. The robot was docked along the right lateral abdomen. The patient was repositioned in reverse Trendelenburg position. Using a grasper for arm 3, a grasper for arm 4, including hook cautery for arm 1, the robotic system was docked and primed as described. Instruments were interchanged by the tax accounting assistant including hook cautery, Bovie cautery and clip appliers. Additional instruments used were vessel sealer including suction rapid extractor operator. I had sat at the console. The gallbladder was now moderately distended with severe inflammation of the gallbladder. The gallbladder wall was moderately inflamed and thickened consistent with acute cholecystitis. A dome down technique was performed removing the gallbladder from the hepatic fossa. Extensive dissection of the gallbladder over 1 hour was performed to prevent harm to the cystic structures and common bile duct. With the size of the moderate size of the gallbladder, mildly fecompression was performed to manipulate the gallbladder safely. The gallbladder was decompressed with clear bile found consistent with hydrops. Additionally purulence was found emanating from the gallbladder. Using indocyanine green drain, the entire gallbladder lacked visualization consistent with acute cholecystitis. The gallbladder fundus was retracted laterally. The infundibulum which was gently retracted in the inferior lateral approach. Using a grasper, the cystic duct including the cystic artery was carefully skeletonized. FIREFLY was used to identify the cystic artery and cystic structures. A critical view of safety was obtained. Large PLASTIC clips were used throughout the entire case. Using a clip tooth polisher 2 clips were placed proximally, and 1 clip was placed between the infundibulum and cystic duct and divided using cautery. Next, the cystic artery was similarly clipped and cauterized. Electro-Bovie cautery was used to remove the gallbladder from the hepatic fossa. Hemostasis was checked and found to be adequate. The abdomen was irrigated with normal saline until solution. The robot was undocked. I re-scrubbed into the case. Despite using a 10 mm Endo Catch bag via the left upper quadrant incision, the specimen was too large to fit into the bag. A 15 mm Endo Catch bag was used to envelope the specimen and the prior Endo Catch bag as well. The fascia of the left upper quadrant was widened to 5 cm to accommodate the removal of the specimen in its entirety. The fascia was closed using 0 Vicryl including E[place]alio [place]. All pneumoperitoneum instruments were evacuated from the abdominal cavity. The incisions were reapproximated using 4-0 Monocryl in an interrupted subcuticular fashion. Please note along the trocar sites, local anesthetic was placed as a field block prior to insertion of all instruments. The skin was cleansed with dilute hydrogen peroxide. Liquid glue was applied to the skin. Optifoam dressing was placed along the left upper quadrant. At the end of the procedure needle, sponge, and instrument count had been verified correct by the salesperson surgical appliances. The patient was transferred to postanesthesia care unit in stable condition. Upon retrieval, the size of the gallbladder was over 15 cm.
[2019-06-23] MEDS: PIPERACILLIN-TAZOBACTAM 3.375 GM in SODIUM CHLORIDE 0.9% 100 ML IVPB SCH ×3 (03:59→16:34)
[2019-06-23] MEDS: 0.9% NACL WITH KCL 20 MEQ/L 1,000 ML IV SCH ×3 (04:01→22:26)
[2019-06-23] MEDS: HYDROmorphone 1 MG/ML 1 ML SYRINGE IVP PRN ×3 (06:09→16:34)
[2019-06-23 06:29] LABS: Basophils % (A) 0 %; Eosinophils % (A) 0 %; HCT 32.3 % (34.0-46.0); HGB 10.3 gm/dL (11.4-16.0); Lymphocytes # (A) 1.1 k/uL (1.0-4.8); Lymphocytes % (A) 19 %; MCH 29.4 pg (25.0-35.0); MCHC 31.9 g/dL (31.0-37.0); Mean Platelet Volume 8.1; Monocytes # (A) 0.3 k/uL (0-1.0); Monocytes % (A) 5 %; Neutrophils # (A) 4.2 k/uL (1.3-7.7); Neutrophils % (A) 74 %; Platelet Count 129 k/uL (150-450); RBC 3.51 m/uL (3.80-5.40); RDW 14.4 % (11.5-15.5); WBC 5.7 k/uL (3.8-10.6)
[2019-06-23 06:42] LABS: Albumin 2.8 g/dL (3.5-5.0); Calcium 7.8 mg/dL (8.4-10.2); Potassium 4.5 mmol/L (3.5-5.1); Total Bilirubin 1.1 mg/dL (0.2-1.3); Total Protein 5.3 g/dL (6.3-8.2)
[2019-06-23] MEDS: METOPROLOL TARTRATE 50 MG TAB PO SCH ×2 (09:27→20:23)
[2019-06-23] MEDS: LOSARTAN 50 MG TAB PO SCH (09:28)
[2019-06-23] MEDS: amLODIPine 5 MG TAB PO SCH (09:28)
[2019-06-23] MEDS: HYDROcodone/APAP 5-325MG 1 EACH TAB PO PRN ×2 (09:28→20:27)
[2019-06-23] MEDS: HYDROCHLOROTHIAZIDE 12.5 MG CAP PO SCH (09:28)
--- NOTE | 2019-06-23 13:05 | P.PN ---
<OliverConnie Magdaleno - Last Filed: 06/23/19 13:04> Subjective Progress Note Date: 06/23/19 CHIEF COMPLAINT: Morbid obesity HISTORY OF PRESENT ILLNESS: 69-year-old female who is status post lysis of adhesions. Minda-en-Y gastric bypass was unable to be performed secondary to high risk of small bowel obstruction due to intra-abdominal adhesions. Postop day #3. Patient is also s/p robotic cholecystectomy. POD #1. Patient examined at the bedside. She reports feeling unwell this morning. Abdominal pain is tolerable. Bilirubin 1.1. AST 363. ALT 198. Alkaline phosphatase 329. PHYSICAL EXAM: VITAL SIGNS: Reviewed. GENERAL: Well-developed in no acute distress. HEENT: No sclera icterus. Extraocular movements grossly intact. Moist buccal mucosa. Head is atraumatic, normocephalic. Hears conversational speech. No nasal drainage. NECK: Supple without lymphadenopathy. CHEST: Non-labored respirations and equal bilateral excursions. CARDIOVASCULAR: Regular rate with regular rhythm. Palpable 2+ radial pulses. ABDOMEN: Soft. Nondistended. Appropriate surgical tenderness. MUSCULOSKELETAL: No clubbing, cyanosis or edema. NEUROLOGIC: No focal or lateralizing signs. Cranial nerves II through XII grossly intact. PSYCH: Appropriate affect. Alert and oriented to person, place and time. SKIN: Well perfused. Good skin turgor. ASSESSMENT: 1. Previous history of bilateral inguinal hernia repair 2. Abnormal computed tomography scan of recurrent left inguinal hernia 3. History of multiple abdominal surgeries 4. History of peritoneal adhesions 5. Hyperlipidemia 6. Hypertensive heart disease 7. Polycythemia 8. Osteopenia 9. Iron deficiency anemia 10. Esophageal dysmotility 11. Periumbilical pain 12. Severe peritoneal adhesions greater omentum to the abdominal wall 13. Possible ureteral stricture 14. Chronic constipation 15. Acute hydrops cholecystitis PLAN: -Urology on consult. Appreciate recommendations -Continue to hold Coumadin. Will not resume at the time of discharge per Dr. Hernandez -Continue low fat diet -Repeat CMP at 1200. Repeat tomorrow AM also Nurse practitioner note has been reviewed by physician. Signing provider agrees with the documented findings, assessment, and plan of care. Objective - Vital Signs Vital signs: Vital Signs Temp 98.6 F 06/23/19 07:00 Pulse 63 06/23/19 08:00 Resp 17 06/23/19 08:00 BP 128/67 06/23/19 07:00 Pulse Ox 99 06/23/19 08:44 Intake & Output 06/22/19 06/23/19 06/23/19 18:59 06:59 18:59 Intake Total 600 1100 Output Total 50 Balance 600 1050 Intake: IV 600 1100 Output: Estimated Blood Loss 50 Other: Voiding Method Toilet Toilet Toilet # Voids 1 0 - Labs CBC & Chem 7: 06/23/19 06:09 06/23/19 06:09 Labs: Abnormal Lab Results - Last 24 Hours (Table) 06/23/19 06/23/19 Range/Units 06:09 06:09 RBC 3.51 L (3.80-5.40) m/uL Hgb 10.3 L (11.4-16.0) gm/dL Hct 32.3 L (34.0-46.0) % Plt Count 129 L (150-450) k/uL Calcium 7.8 L (8.4-10.2) mg/dL AST 363 H (14-36) U/L ALT 198 H (4-34) U/L Alkaline Phosphatase 329 H (38-126) U/L Total Protein 5.3 L (6.3-8.2) g/dL Albumin 2.8 L (3.5-5.0) g/dL <Fani Hernandez N - Last Filed: 06/24/19 17:47> Subjective Patient has elevated LFTs. Will redraw chemistry panels. May need GI consult pending LFT trends. Objective - Vital Signs Vital signs: Vital Signs Temp 98.3 F 06/24/19 15:00 Pulse 61 06/24/19 15:00 Resp 17 06/24/19 15:00 BP 107/44 06/24/19 15:00 Pulse Ox 94 L 06/24/19 15:00 Intake & Output 06/23/19 06/24/19 06/24/19 18:59 06:59 18:59 Intake Total 800 Output Total 200 Balance 800 -200 Intake: Intake, IV Titration 800 Amount 0.9% NaCl with KCl 20 Meq 800 /l 1,000 ml @ 100 mls/hr IV .Q10H [facility] Rx#: [id number] Output: Urine 200 Other: Voiding Method Toilet Toilet Toilet Bedside Commode # Voids 1 1 1 - Labs CBC & Chem 7: 06/23/19 06:09 06/24/19 06:10 Labs: Abnormal Lab Results - Last 24 Hours (Table) 06/24/19 Range/Units 06:10 Sodium 135 L (137-145) mmol/L Calcium 7.4 L (8.4-10.2) mg/dL AST 113 H (14-36) U/L ALT 129 H (4-34) U/L Alkaline Phosphatase 256 H (38-126) U/L Total Protein 5.0 L (6.3-8.2) g/dL Albumin 2.6 L (3.5-5.0) g/dL
[2019-06-23 13:32] LABS: Calcium 7.7 mg/dL (8.4-10.2); Potassium 4.3 mmol/L (3.5-5.1); Total Protein 5.3 g/dL (6.3-8.2)
[2019-06-23] MEDS: SIMETHICONE 80 MG CHEWABLE PO SCH ×4 (16:29→20:22)
[2019-06-23] MEDS: LACTATED RINGERS 1,000 ML IV SCH (16:30)
[2019-06-24] MEDS: PIPERACILLIN-TAZOBACTAM 3.375 GM in SODIUM CHLORIDE 0.9% 100 ML IVPB SCH ×4 (00:49→23:41)
[2019-06-24] MEDS: HYDROcodone/APAP 5-325MG 1 EACH TAB PO PRN ×2 (04:55→09:38)
[2019-06-24] MEDS: LACTATED RINGERS 1,000 ML IV SCH (04:57)
[2019-06-24 07:22] LABS: Albumin 2.6 g/dL (3.5-5.0); Calcium 7.4 mg/dL (8.4-10.2); Potassium 4.1 mmol/L (3.5-5.1); Total Bilirubin 0.9 mg/dL (0.2-1.3)
[2019-06-24] MEDS: METOPROLOL TARTRATE 50 MG TAB PO SCH ×2 (09:37→20:54)
[2019-06-24] MEDS: amLODIPine 5 MG TAB PO SCH (09:37)
[2019-06-24] MEDS: HYDROCHLOROTHIAZIDE 12.5 MG CAP PO SCH (09:37)
[2019-06-24] MEDS: LOSARTAN 50 MG TAB PO SCH (09:37)
[2019-06-24] MEDS: HYDROmorphone 1 MG/ML 1 ML SYRINGE IVP PRN (11:33)
[2019-06-24] MEDS ORDERED: KETOROLAC 30 MG/ML 1 ML VIAL IVP SCH (12:15)
--- NOTE | 2019-06-24 13:23 | P.PN ---
<Connie Boyd - Last Filed: 06/24/19 13:25> Subjective Progress Note Date: 06/24/19 CHIEF COMPLAINT: Morbid obesity HISTORY OF PRESENT ILLNESS: 69-year-old female who is status post lysis of adhesions. Minda-en-Y gastric bypass was unable to be performed secondary to high risk of small bowel obstruction due to intra-abdominal adhesions. Postop day #4. Patient is also s/p robotic cholecystectomy. POD #2. Patient examined at the bedside. She reports left sided abdominal pain. She states it is not tolerable with the [place] alone. She was unable to tolerate the IV dilaudid yesterday per nursing. Bilirubin 0.9. AST 113. ALT 129. Alkaline phosphatase 256. PHYSICAL EXAM: VITAL SIGNS: Reviewed. GENERAL: Well-developed in no acute distress. HEENT: No sclera icterus. Extraocular movements grossly intact. Moist buccal mucosa. Head is atraumatic, normocephalic. Hears conversational speech. No nasal drainage. NECK: Supple without lymphadenopathy. CHEST: Non-labored respirations and equal bilateral excursions. CARDIOVASCULAR: Regular rate with regular rhythm. Palpable 2+ radial pulses. ABDOMEN: Soft. Nondistended. Appropriate surgical tenderness. MUSCULOSKELETAL: No clubbing, cyanosis or edema. NEUROLOGIC: No focal or lateralizing signs. Cranial nerves II through XII grossly intact. PSYCH: Appropriate affect. Alert and oriented to person, place and time. SKIN: Well perfused. Good skin turgor. ASSESSMENT: 1. Previous history of bilateral inguinal hernia repair 2. Abnormal computed tomography scan of recurrent left inguinal hernia 3. History of multiple abdominal surgeries 4. History of peritoneal adhesions 5. Hyperlipidemia 6. Hypertensive heart disease 7. Polycythemia 8. Osteopenia 9. Iron deficiency anemia 10. Esophageal dysmotility 11. Periumbilical pain 12. Severe peritoneal adhesions greater omentum to the abdominal wall 13. Possible ureteral stricture 14. Chronic constipation 15. Acute hydrops cholecystitis PLAN: -Continue to hold Coumadin. Will not resume at the time of discharge per Dr. Hernandez -Continue low fat diet -Monitor CMP. Consult GI for evaluation of elevated LFTs -Pain control. Continue [place]. Will add IV Toradol. Nurse practitioner note has been reviewed by physician. Signing provider agrees with the documented findings, assessment, and plan of care. Objective - Vital Signs Vital signs: Vital Signs Temp 98.0 F 06/24/19 07:30 Pulse 62 06/24/19 09:30 Resp 16 06/24/19 09:30 BP 114/60 06/24/19 07:30 Pulse Ox 96 06/24/19 07:30 Intake & Output 06/23/19 06/24/19 06/24/19 18:59 06:59 18:59 Intake Total 800 Output Total 200 Balance 800 -200 Intake: Intake, IV Titration 800 Amount 0.9% NaCl with KCl 20 Meq 800 /l 1,000 ml @ 100 mls/hr IV .Q10H [facility] Rx#: [id number] Output: Urine 200 Other: Voiding Method Toilet Toilet Toilet Bedside Commode # Voids 1 1 1 - Labs CBC & Chem 7: 06/23/19 06:09 06/24/19 06:10 Labs: Abnormal Lab Results - Last 24 Hours (Table) 06/23/19 06/24/19 Range/Units 13:06 06:10 Sodium 135 L (137-145) mmol/L Glucose 131 H (74-99) mg/dL Calcium 7.7 L 7.4 L (8.4-10.2) mg/dL AST 263 H 113 H (14-36) U/L ALT 187 H 129 H (4-34) U/L Alkaline Phosphatase 328 H 256 H (38-126) U/L Total Protein 5.3 L 5.0 L (6.3-8.2) g/dL Albumin 3.0 L 2.6 L (3.5-5.0) g/dL <Fani Hernandez N - Last Filed: 06/24/19 17:47> Subjective LFTs remain elevated. GI consultation requested. Patient has moderate pain. Agree with start of Toradol. Discharge home pending improvement of postoperative pain. Objective - Vital Signs Vital signs: Vital Signs Temp 98.3 F 06/24/19 15:00 Pulse 61 06/24/19 15:00 Resp 17 06/24/19 15:00 BP 107/44 06/24/19 15:00 Pulse Ox 94 L 06/24/19 15:00 Intake & Output 06/23/19 06/24/19 06/24/19 18:59 06:59 18:59 Intake Total 800 Output Total 200 Balance 800 -200 Intake: Intake, IV Titration 800 Amount 0.9% NaCl with KCl 20 Meq 800 /l 1,000 ml @ 100 mls/hr IV .Q10H [facility] Rx#: [id number] Output: Urine 200 Other: Voiding Method Toilet Toilet Toilet Bedside Commode # Voids 1 1 1 - Labs CBC & Chem 7: 06/23/19 06:09 06/24/19 06:10 Labs: Abnormal Lab Results - Last 24 Hours (Table) 06/24/19 Range/Units 06:10 Sodium 135 L (137-145) mmol/L Calcium 7.4 L (8.4-10.2) mg/dL AST 113 H (14-36) U/L ALT 129 H (4-34) U/L Alkaline Phosphatase 256 H (38-126) U/L Total Protein 5.0 L (6.3-8.2) g/dL Albumin 2.6 L (3.5-5.0) g/dL
[2019-06-24] MEDS: SIMETHICONE 80 MG CHEWABLE PO SCH ×4 (16:00→22:29)
[2019-06-24] MEDS: KETOROLAC 30 MG/ML 1 ML VIAL IVP SCH ×3 (16:10→23:39)
[2019-06-24] MEDS: 0.9% NACL WITH KCL 20 MEQ/L 1,000 ML IV SCH ×3 (19:27→23:41)
--- NOTE | 2019-06-24 19:58 | CONS ---
CONSULTATION DATE OF DICTATION: June 24, 2019. REQUESTING PHYSICIAN: Dr. Hernandez. REASON FOR CONSULTATION: Elevated LFTs. HISTORY OF PRESENT ILLNESS: Patient is a 69-year-old pleasant white female with history of morbid obesity, was admitted to the hospital on June 20 for a gastric bypass surgery. She underwent surgery. However, there was significant adhesions noted and the surgery was not performed and robotic lysis of adhesions was done. Next, patient was having some abdominal discomfort, CT of the abdomen was done that showed changes consistent with acute cholecystitis. No gallstones identified. She had a HIDA scan that was normal. She was also noted to have hydrops of the gallbladder and hence the patient underwent robotic cholecystectomy 3 days ago. At the time of surgery, her serum transaminases have been within normal limits. Before the surgery, AST and ALT are 34 and 21 respectively. The day after the surgery, AST went up to 363, ALT went up to 198, and alkaline phosphatase was 329 and hence we were consulted in regards to this persistent elevation of serum transaminases. The patient denies any abdominal pain. She has some abdominal discomfort in the epigastric area following surgery. She denies any prior history of chronic liver disease. No history of jaundice or hepatitis in the past. PAST MEDICAL HISTORY: Morbid obesity and hypercholesteremia. No history of diabetes mellitus. MEDICATIONS: At home include Norvasc, Lopressor, Cozaar, HydroDIURIL, Lipitor and Tylenol. ALLERGIES: LATEX. SOCIAL HISTORY: No smoking. No alcohol use. FAMILY HISTORY: Unremarkable. PAST SURGICAL HISTORY: Robotic cholecystectomy 3 days ago and exploratory laparotomy 5 days ago. PHYSICAL EXAMINATION: She appears comfortable. No apparent distress. VITAL SIGNS: Stable. Blood pressure is 114/60, pulse rate 62, temperature 98. HEENT examination unremarkable. Conjunctivae pink. Sclerae anicteric. Oral cavity no lesions. NECK: No JVD or lymph node enlargement. Chest was clear to auscultation. HEART: Regular rate and rhythm. ABDOMEN: Soft. Bowel sounds are positive. No organomegaly. There was minimal tenderness in the epigastric area. EXTREMITIES: No pedal edema. Skin no rashes. NEUROLOGIC: Alert and oriented x3. No focal deficits. LABS: Done at the time of admission to the hospital AST and ALT were 40 and 20 respectively. On June 23, AST was 363, ALT was 198, and alkaline phosphatase 329, normal bilirubin, AST is down to 103, ALT is 129, alkaline phosphatase 256, and bilirubin is 0.9. She also has mild thrombocytopenia with a platelet count of 129. IMPRESSION: 1. Elevated serum transaminases post robotic cholecystectomy in this lady who has no history of gallstones on recent imaging studies, she is noted to have moderate elevation of serum transaminases and at the same time, she is also noted to have some thrombocytopenia and all of this raises the question of possible underlying chronic liver disease with some decompensation. I doubt we are dealing with any CBD pathology or CBD stones at this time as patient did not have any gallstones that were seen on a imaging studies prior to the surgery. 2. Morbid obesity. 3. History of hypercholesteremia. RECOMMENDATION: 1. At this time we will repeat serum transaminases on a close basis. 2. Since they are trending down, I do not see any reason to proceed with any MRCP at this time. 3. Repeat LFTs in the morning. 4. We will follow with you closely. Thank you for this consultation. CUBA / SHARLENEN: [id number] /
[2019-06-25] MEDS: LACTATED RINGERS 1,000 ML IV SCH (00:47)
[2019-06-25] MEDS: HYDROmorphone 1 MG/ML 1 ML SYRINGE IVP PRN ×2 (04:06→21:46)
[2019-06-25] MEDS: KETOROLAC 30 MG/ML 1 ML VIAL IVP SCH ×4 (07:04→23:50)
[2019-06-25 08:24] LABS: Albumin 2.6 g/dL (3.5-5.0); Calcium 7.5 mg/dL (8.4-10.2); Potassium 4.8 mmol/L (3.5-5.1); Total Bilirubin 0.6 mg/dL (0.2-1.3)
[2019-06-25] MEDS: LOSARTAN 50 MG TAB PO SCH (08:54)
[2019-06-25] MEDS: HYDROCHLOROTHIAZIDE 12.5 MG CAP PO SCH (08:54)
[2019-06-25] MEDS: amLODIPine 5 MG TAB PO SCH (08:54)
[2019-06-25] MEDS: METOPROLOL TARTRATE 50 MG TAB PO SCH ×2 (08:54→21:57)
[2019-06-25] MEDS: SIMETHICONE 80 MG CHEWABLE PO SCH ×4 (08:55→23:49)
[2019-06-25] MEDS: PIPERACILLIN-TAZOBACTAM 3.375 GM in SODIUM CHLORIDE 0.9% 100 ML IVPB SCH ×3 (08:55→23:54)
--- NOTE | 2019-06-25 09:13 | PN ---
PROGRESS NOTE DATE OF SERVICE: 06/25/2019 This patient is a 69-year-old pleasant white female admitted who underwent robotic cholecystectomy 2 days ago for acute cholecystitis. Prior to that she had exploratory laparotomy for gastric bypass surgery, but because of severe adhesions that procedure was aborted. Following the surgery she was noted to have elevated serum transaminases and hence she was seen in consultation yesterday. The patient complains of severe epigastric bloating sensation. No pain. No nausea, vomiting. Has significantly decreased appetite; in fact, not able to eat much because of the severe bloating. PHYSICAL EXAMINATION: She appears comfortable. No apparent distress. Vital signs are stable. Blood pressure 128/67, pulse rate 59, temperature 98.2. HEENT examination unremarkable. Conjunctivae pink. Sclerae anicteric. Oral cavity no lesions. NECK: No JVD or lymph node enlargement. CHEST: Clear to auscultation. HEART: Regular rate and rhythm. ABDOMEN: Soft. Bowel sounds are positive. No organomegaly. Mild tenderness in the epigastric area. EXTREMITIES: No pedal edema. SKIN: No rashes. NEUROLOGIC: Alert and oriented x3. No focal deficits. LABS: Labs from today are not available. IMPRESSION: Elevated liver function tests post robotic cholecystectomy done 2 days ago. LFTs are gradually improving. She continues to have epigastric discomfort. Gallbladder pathology showed evidence of gangrenous cholecystitis with multiple gallstones. At this time we may be dealing with choledocholithiasis versus decompensated liver disease, but in any event her LFTs are gradually improving. RECOMMENDATIONS: 1. Continue to monitor LFTs closely. 2. If they worsen, will consider an MRCP. 3. Advance diet as tolerated. 4. Continue management as per Surgery. Will follow with you closely. Thank you for this consultation. MMODL / IJN: [id number] /
--- NOTE | 2019-06-25 11:51 | P.PN ---
Subjective Progress Note Date: 06/25/19 Principal diagnosis: Acute cholecystitis Patient complaining of abdominal bloating. Mild discomfort. No nausea or vomiting. Small amount of flatus. No Somers. Liver enzymes decreased alkaline phosphatase slightly increased. GI consultation noted. Objective - Vital Signs Vital signs: Vital Signs Temp 97.8 F 06/25/19 08:58 Pulse 78 06/25/19 08:58 Resp 16 06/25/19 08:58 BP 124/67 06/25/19 08:58 Pulse Ox 99 06/25/19 08:58 Intake & Output 06/24/19 06/25/19 06/25/19 18:59 06:59 18:59 Intake Total 1200 1200 Output Total 200 110 Balance -200 1090 1200 Intake: Intake, IV Titration 1200 Amount 0.9% NaCl with KCl 20 Meq 1200 /l 1,000 ml @ 100 mls/hr IV .Q10H YULIANA Rx#: [id number] Oral 1200 Output: Urine 200 110 Other: Voiding Method Toilet Toilet Bedside Commode Bedside Commode # Voids 1 1 - Exam Abdomen: Soft, mild upper abdominal tenderness, mild distention, incisions clean and dry - Labs CBC & Chem 7: 06/23/19 06:09 06/25/19 07:48 Labs: Abnormal Lab Results - Last 24 Hours (Table) 06/25/19 Range/Units 07:48 BUN 19 H (7-17) mg/dL Calcium 7.5 L (8.4-10.2) mg/dL AST 92 H (14-36) U/L ALT 109 H (4-34) U/L Alkaline Phosphatase 393 H (38-126) U/L Total Protein 5.0 L (6.3-8.2) g/dL Albumin 2.6 L (3.5-5.0) g/dL Assessment and Plan (1) Gangrene of gallbladder in cholecystitis Narrative/Plan: Continue low-fat diet. Ambulate. Recheck labs tomorrow. Current Visit: Yes Status: Acute Code(s): K82.A1 - GANGRENE OF GALLBLADDER IN CHOLECYSTITIS SNOMED Code(s): 229887513
[2019-06-25] MEDS: ONDANSETRON 4 MG/2 ML VIAL IVP PRN (12:29)
[2019-06-25] MEDS: 0.9% NACL WITH KCL 20 MEQ/L 1,000 ML IV SCH ×2 (12:32→21:51)
[2019-06-26] MEDS: LACTATED RINGERS 1,000 ML IV SCH (01:40)
[2019-06-26] MEDS: KETOROLAC 30 MG/ML 1 ML VIAL IVP SCH ×4 (05:34→23:35)
[2019-06-26 06:52] LABS: Basophils % (A) 0 %; Eosinophils # (A) 0.2 k/uL (0-0.7); Eosinophils % (A) 4 %; HCT 33.9 % (34.0-46.0); HGB 10.8 gm/dL (11.4-16.0); Lymphocytes # (A) 0.9 k/uL (1.0-4.8); Lymphocytes % (A) 17 %; MCH 29.6 pg (25.0-35.0); MCHC 31.9 g/dL (31.0-37.0); MCV 92.7 fL (80.0-100.0); Mean Platelet Volume 7.6; Monocytes # (A) 0.2 k/uL (0-1.0); Monocytes % (A) 4 %; Neutrophils # (A) 3.7 k/uL (1.3-7.7); Neutrophils % (A) 73 %; Platelet Count 211 k/uL (150-450); RBC 3.66 m/uL (3.80-5.40); RDW 14.6 % (11.5-15.5)
[2019-06-26 07:12] LABS: Albumin 3.1 g/dL (3.5-5.0); Calcium 8.1 mg/dL (8.4-10.2); Potassium 4.2 mmol/L (3.5-5.1); Total Bilirubin 0.6 mg/dL (0.2-1.3); Total Protein 5.9 g/dL (6.3-8.2)
[2019-06-26] MEDS: HYDROCHLOROTHIAZIDE 12.5 MG CAP PO SCH (07:53)
[2019-06-26] MEDS: amLODIPine 5 MG TAB PO SCH (07:53)
[2019-06-26] MEDS: LOSARTAN 50 MG TAB PO SCH ×2 (07:53→07:54)
[2019-06-26] MEDS: METOPROLOL TARTRATE 50 MG TAB PO SCH ×2 (07:53→20:10)
[2019-06-26] MEDS: PIPERACILLIN-TAZOBACTAM 3.375 GM in SODIUM CHLORIDE 0.9% 100 ML IVPB SCH ×3 (07:54→23:34)
[2019-06-26] MEDS: ONDANSETRON 4 MG/2 ML VIAL IVP PRN ×2 (07:54→17:22)
[2019-06-26] MEDS: HYDROmorphone 1 MG/ML 1 ML SYRINGE IVP PRN ×2 (08:22→20:11)
[2019-06-26] MEDS: 0.9% NACL WITH KCL 20 MEQ/L 1,000 ML IV SCH ×2 (10:03→19:43)
[2019-06-26] MEDS: SIMETHICONE 80 MG CHEWABLE PO SCH ×4 (10:03→23:33)
--- NOTE | 2019-06-26 10:28 | P.PN ---
Subjective Progress Note Date: 06/26/19 Principal diagnosis: Acute cholecystitis Patient still complains of abdominal bloating. Some nausea. No vomiting. She passed flatus this morning. No bowel movement. Liver enzymes are improved. White blood cell count is normal. Objective - Vital Signs Vital signs: Vital Signs Temp 97.5 F L 06/26/19 07:00 Pulse 59 L 06/26/19 07:00 Resp 18 06/26/19 07:00 BP 140/89 06/26/19 07:00 Pulse Ox 96 06/26/19 07:00 Intake & Output 06/25/19 06/26/19 06/26/19 18:59 06:59 18:59 Intake Total 2400 1200 1200 Balance 2400 1200 1200 Intake: Intake, IV Titration 1200 Amount 0.9% NaCl with KCl 20 Meq 1200 /l 1,000 ml @ 100 mls/hr IV .Q10H YULIANA Rx#: [id number] Oral 2400 1200 Other: Voiding Method Toilet Toilet Bedside Commode Bedside Commode # Voids 3 - Exam Abdomen: Soft, mild distention, mild left-sided tenderness, incisions clean and dry - Labs CBC & Chem 7: 06/26/19 06:21 06/26/19 06:21 Labs: Abnormal Lab Results - Last 24 Hours (Table) 06/26/19 06/26/19 Range/Units 06:21 06:21 RBC 3.66 L (3.80-5.40) m/uL Hgb 10.8 L (11.4-16.0) gm/dL Hct 33.9 L (34.0-46.0) % Lymphocytes # 0.9 L (1.0-4.8) k/uL Chloride 110 H (98-107) mmol/L Glucose 102 H (74-99) mg/dL Calcium 8.1 L (8.4-10.2) mg/dL AST 49 H (14-36) U/L ALT 86 H (4-34) U/L Alkaline Phosphatase 364 H (38-126) U/L Total Protein 5.9 L (6.3-8.2) g/dL Albumin 3.1 L (3.5-5.0) g/dL Assessment and Plan (1) Gangrene of gallbladder in cholecystitis Narrative/Plan: Continue increasing activity. Patient did notice increased flatus with ambulation. We'll give a dose of Dulcolax suppository today. Check abdominal x-rays. Current Visit: Yes Status: Acute Code(s): K82.A1 - GANGRENE OF GALLBLADDER IN CHOLECYSTITIS SNOMED Code(s): 930705730
--- NOTE | 2019-06-26 10:57 | PN ---
PROGRESS NOTE DATE OF DICTATION: June 26, 2019 Patient is a 69-year-old pleasant white female admitted to the hospital for possible gastric bypass surgery, but could not be done because of adhesions. Subsequently she had robotic cholecystectomy done for acute cholecystitis and post lap esdras, she was noted to have elevated serum transaminases. They are gradually improving. She still complains of abdominal bloating and epigastric discomfort. No nausea, no vomiting. No fever, chills, or night sweats. PHYSICAL EXAMINATION: She appears comfortable. Vital signs 118/66, 53, 19, 77. HEENT examination unremarkable. Conjunctivae pink. Sclerae anicteric. Oral cavity no lesions. NECK: No JVD or lymph node enlargement. CHEST: Clear to auscultation. HEART: Regular rate and rhythm. ABDOMEN is distended, it is slightly tender in the epigastric area. Bowel sounds are positive. No organomegaly. EXTREMITIES: No pedal edema. SKIN no rashes. NEUROLOGIC: Alert and oriented x3. No focal deficits. LABS: WBC 5, hemoglobin 10.8, platelets 211. AST and ALT of 49 and 86 respectively. Alkaline phosphatase is 64. IMPRESSION: 1. Elevated LFTs post laparoscopic cholecystectomy, possibly stone, possibly decompensated chronic liver disease, but LFTs have significantly improved. 2. Status post cholecystectomy 3 days ago. 3. Epigastric pain, abdominal distention, which is gradually improving. 4. Mild thrombocytopenia that has normalized. RECOMMENDATION: At this time, we will continue to monitor the LFTs on a daily basis. No plans on any known MRCP at this time. We will follow with you closely. Thank you for this consultation. MMODL / IJN: [id number] /
[2019-06-26] MEDS: BISACODYL 10 MG SUPP RECTAL SCH (12:42)
--- NOTE | 2019-06-26 16:39 | XR ---
EXAMINATION TYPE: XR abdomen 2V DATE OF EXAM: 06/26/2019 COMPARISON: NONE HISTORY: Abdominal bloating TECHNIQUE: 3 views FINDINGS: There is no sign of intestinal obstruction or pneumoperitoneum. Fecal pattern is normal. Th ere is some contrast in the right colon. There is no evidence of a mass. There is blunting of costoph renic angles. There are no definite calcifications over the kidneys. IMPRESSION: Nonacute abdomen. Bilateral pleural effusions.
[2019-06-27] MEDS: LACTATED RINGERS 1,000 ML IV SCH (00:01)
[2019-06-27] MEDS: KETOROLAC 30 MG/ML 1 ML VIAL IVP SCH ×3 (05:29→17:00)
[2019-06-27] MEDS: 0.9% NACL WITH KCL 20 MEQ/L 1,000 ML IV SCH ×2 (05:29→12:09)
[2019-06-27] MEDS: HYDROcodone/APAP 5-325MG 1 EACH TAB PO PRN ×2 (06:58→17:00)
[2019-06-27] MEDS: PIPERACILLIN-TAZOBACTAM 3.375 GM in SODIUM CHLORIDE 0.9% 100 ML IVPB SCH ×2 (08:33→16:54)
[2019-06-27] MEDS: METOPROLOL TARTRATE 50 MG TAB PO SCH ×2 (08:37→22:04)
[2019-06-27] MEDS: amLODIPine 5 MG TAB PO SCH (08:40)
[2019-06-27] MEDS: LOSARTAN 50 MG TAB PO SCH (08:40)
[2019-06-27] MEDS: BISACODYL 10 MG SUPP RECTAL SCH (08:40)
[2019-06-27] MEDS: HYDROCHLOROTHIAZIDE 12.5 MG CAP PO SCH (08:40)
[2019-06-27] MEDS: SIMETHICONE 80 MG CHEWABLE PO SCH ×4 (08:40→22:04)
[2019-06-27] MEDS ORDERED: MAGNESIUM HYDROXIDE 2,400 MG/10 ML CUP PO ONE (09:41)
[2019-06-27] MEDS ORDERED: METOCLOPRAMIDE 5 MG/ML 2 ML VIAL IVP STA (09:41)
[2019-06-27] MEDS ORDERED: LACTULOSE 20 GM/30 ML CUP PO ONE (09:43)
[2019-06-27 10:19] VITALS: BMI 36.6
--- NOTE | 2019-06-27 11:15 | P.PN ---
<OliverParvezConnie A - Last Filed: 06/27/19 11:12> Subjective Progress Note Date: 06/27/19 CHIEF COMPLAINT: Morbid obesity HISTORY OF PRESENT ILLNESS: 69-year-old female who is status post lysis of adhesions. Minda-en-Y gastric bypass was unable to be performed secondary to high risk of small bowel obstruction due to intra-abdominal adhesions. Postop day #6. Patient is also s/p robotic cholecystectomy. POD #4. Patient examined at the bedside. She reports improvement in left sided abdominal pain. Tolerating diet. Passing flatus. Denies BM since surgery. PHYSICAL EXAM: VITAL SIGNS: Reviewed. GENERAL: Well-developed in no acute distress. HEENT: No sclera icterus. Extraocular movements grossly intact. Moist buccal mucosa. Head is atraumatic, normocephalic. Hears conversational speech. No nasal drainage. NECK: Supple without lymphadenopathy. CHEST: Non-labored respirations and equal bilateral excursions. CARDIOVASCULAR: Regular rate with regular rhythm. Palpable 2+ radial pulses. ABDOMEN: Soft. Nondistended. Appropriate surgical tenderness. MUSCULOSKELETAL: No clubbing, cyanosis or edema. NEUROLOGIC: No focal or lateralizing signs. Cranial nerves II through XII grossly intact. PSYCH: Appropriate affect. Alert and oriented to person, place and time. SKIN: Well perfused. Good skin turgor. ASSESSMENT: 1. Previous history of bilateral inguinal hernia repair 2. Abnormal computed tomography scan of recurrent left inguinal hernia 3. History of multiple abdominal surgeries 4. History of peritoneal adhesions 5. Hyperlipidemia 6. Hypertensive heart disease 7. Polycythemia 8. Osteopenia 9. Iron deficiency anemia 10. Esophageal dysmotility 11. Periumbilical pain 12. Severe peritoneal adhesions greater omentum to the abdominal wall 13. Possible ureteral stricture 14. Chronic constipation 15. Acute hydrops cholecystitis PLAN: -Continue to hold Coumadin. Will not resume at the time of discharge per Dr. Hernanedz -Continue low fat diet -Pain control -IS 10 times an hour -Activity as tolerated -Reglan, MOM, Lactulose today -Anticipate discharge home tomorrow Nurse practitioner note has been reviewed by physician. Signing provider agrees with the documented findings, assessment, and plan of care. Objective - Vital Signs Vital signs: Vital Signs Temp 98.1 F 06/27/19 07:00 Pulse 55 L 06/27/19 08:35 Resp 16 06/27/19 07:00 BP 150/77 06/27/19 07:00 Pulse Ox 93 L 06/27/19 07:00 Intake & Output 06/26/19 06/27/19 06/27/19 18:59 06:59 18:59 Intake Total 1200 Balance 1200 Weight 85 kg Intake: Oral 1200 Other: Voiding Method Toilet Toilet Toilet Bedside Commode Bedside Commode Bedside Commode # Voids 3 1 1 - Labs CBC & Chem 7: 06/26/19 06:21 06/26/19 06:21 <Fani Hernandez N - Last Filed: 06/28/19 18:48> Subjective Additional cathartics for constipation. Discharge pending bowel movement for pat ient with history of chronic constipation Objective - Vital Signs Vital signs: Vital Signs Temp 97.8 F 06/28/19 15:00 Pulse 100 06/28/19 16:00 Resp 16 06/28/19 16:00 BP 156/83 06/28/19 15:00 Pulse Ox 96 06/28/19 15:00 Intake & Output 06/27/19 06/28/19 06/28/19 18:59 06:59 18:59 Weight 85 kg Other: Voiding Method Toilet Toilet Toilet Bedside Commode Bedside Commode Bedside Commode # Voids 1 1 # Bowel Movements 2 - Labs CBC & Chem 7: 06/28/19 09:10 06/28/19 09:10 Labs: Abnormal Lab Results - Last 24 Hours (Table) 06/28/19 06/28/19 Range/Units 09:10 09:10 RBC 3.46 L (3.80-5.40) m/uL Hgb 10.0 L (11.4-16.0) gm/dL Hct 31.8 L (34.0-46.0) % Lymphocytes # 0.6 L (1.0-4.8) k/uL Chloride 109 H (98-107) mmol/L Glucose 120 H (74-99) mg/dL Calcium 8.3 L (8.4-10.2) mg/dL AST 45 H (14-36) U/L ALT 58 H (4-34) U/L Alkaline Phosphatase 276 H (38-126) U/L Total Protein 5.6 L (6.3-8.2) g/dL Albumin 3.0 L (3.5-5.0) g/dL
[2019-06-27] MEDS: HYDROmorphone 1 MG/ML 1 ML SYRINGE IVP PRN (22:05)
[2019-06-28] MEDS: 0.9% NACL WITH KCL 20 MEQ/L 1,000 ML IV SCH ×2 (00:48→17:20)
[2019-06-28] MEDS: KETOROLAC 30 MG/ML 1 ML VIAL IVP SCH ×3 (00:48→11:43)
[2019-06-28] MEDS: PIPERACILLIN-TAZOBACTAM 3.375 GM in SODIUM CHLORIDE 0.9% 100 ML IVPB SCH ×3 (00:50→17:20)
[2019-06-28] MEDS: LACTATED RINGERS 1,000 ML IV SCH (04:39)
--- NOTE | 2019-06-28 07:10 | P.PN ---
Subjective Progress Note Date: 06/27/19 Principal diagnosis: Elevated liver enzymes, status post laparoscopic cholecystectomy Patient seen lying in bed reporting that she is tolerating her diet with no abdominal pain. Overall feeling better. Objective - Vital Signs Vital signs: Vital Signs Temp 98.1 F 06/27/19 07:00 Pulse 55 L 06/27/19 08:35 Resp 16 06/27/19 07:00 BP 150/77 06/27/19 07:00 Pulse Ox 93 L 06/27/19 07:00 Intake & Output 06/26/19 06/27/19 06/27/19 18:59 06:59 18:59 Intake Total 1200 Balance 1200 Weight 85 kg Intake: Oral 1200 Other: Voiding Method Toilet Toilet Toilet Bedside Commode Bedside Commode Bedside Commode # Voids 3 1 1 - Exam On physical examination, patient appears comfortable in no apparent distress. HEAD: Normocephalic, atraumatic. EYES: No scleral icterus. No conjunctival injection. MOUTH: No lesions, tongue midline. NECK: Trachea midline, no gross abnormalities. ABDOMEN: Soft, appropriately tender status post cholecystectomy. Bowel sounds are positive. No organomegaly. No guarding or rigidity. EXTREMITIES: No pedal edema. SKIN: No rashes, no jaundice. NEUROLOGIC: Alert and oriented x3. No focal deficits. - Labs CBC & Chem 7: 06/26/19 06:21 06/26/19 06:21 Assessment and Plan (1) Elevated liver enzymes Narrative/Plan: 69-year-old female who is status post lap or scopic cholecystectomy who was fou nd to have elevated liver enzymes. Unknown etiology may be related to a stone which is passed through the CBD, decompensated liver disease or other etiology. Liver enzymes continue to improve and trend down. Current Visit: Yes Status: Acute Code(s): R74.8 - ABNORMAL LEVELS OF OTHER SERUM ENZYMES SNOMED Code(s): 653546273 Plan: Supportive care And advance diet per surgical service recommendations Liver enzymes continue to trend down Continue monitor CBC, CMP No plans for endoscopic evaluation at this time Thank you for allowing us to participate in the care of the patient, the GI service will stand by, please call us back with any questions or concerns
[2019-06-28] MEDS: METOPROLOL TARTRATE 50 MG TAB PO SCH (07:43)
[2019-06-28] MEDS: HYDROCHLOROTHIAZIDE 12.5 MG CAP PO SCH (07:44)
[2019-06-28] MEDS: LOSARTAN 50 MG TAB PO SCH (07:44)
[2019-06-28] MEDS: ONDANSETRON 4 MG/2 ML VIAL IVP PRN (07:45)
[2019-06-28] MEDS: amLODIPine 5 MG TAB PO SCH (07:45)
[2019-06-28] MEDS: HYDROcodone/APAP 5-325MG 1 EACH TAB PO PRN (07:45)
[2019-06-28 09:47] LABS: ALT 58 U/L (4-34); AST 45 U/L (14-36); African American GFR (CKD) >90 (>60 ml/min/1.73 sqM); Alkaline Phosphatase 276 U/L (38-126); Anion Gap 3 mmol/L; Blood Urea Nitrogen 9 mg/dL (7-17); Calcium 8.3 mg/dL (8.4-10.2); Carbon Dioxide 28 mmol/L (22-30); Chloride 109 mmol/L (98-107); Glucose 120 mg/dL (74-99); Non-African American GFR(CKD) 89 (>60 ml/min/1.73 sqM); Potassium 4.5 mmol/L (3.5-5.1); Sodium 140 mmol/L (137-145); Total Bilirubin 0.4 mg/dL (0.2-1.3); Total Protein 5.6 g/dL (6.3-8.2)
[2019-06-28 09:48] LABS: Basophils % (A) 0 %; Eosinophils # (A) 0.2 k/uL (0-0.7); Eosinophils % (A) 3 %; HCT 31.8 % (34.0-46.0); Lymphocytes # (A) 0.6 k/uL (1.0-4.8); Lymphocytes % (A) 11 %; MCHC 31.4 g/dL (31.0-37.0); MCV 92.1 fL (80.0-100.0); Mean Platelet Volume 7.1; Monocytes # (A) 0.3 k/uL (0-1.0); Monocytes % (A) 6 %; Neutrophils # (A) 4.1 k/uL (1.3-7.7); Neutrophils % (A) 78 %; Platelet Count 266 k/uL (150-450); RBC 3.46 m/uL (3.80-5.40); RDW 14.5 % (11.5-15.5); WBC 5.2 k/uL (3.8-10.6)
[2019-06-28] MEDS: BISACODYL 10 MG SUPP RECTAL SCH (10:32)
--- NOTE | 2019-06-28 15:05 | P.DS ---
<Connie Boyd - Last Filed: 06/28/19 15:04> Providers Expected date of discharge: 06/28/19 Hospital Course: 69-year-old female underwent lysis of adhesions with Dr. Hernandez on 06/20/2019. Minda-en-Y gastric bypass was unable to be performed secondary to high risk of small bowel obstruction due to intra-abdominal adhesions. Patient was noted to have a possible ureteral stricture when the operating room was attempting to place a Govea catheter. Urology was consulted postoperatively to evaluate patient. No further recommendations were made from their standpoint. Patient reported a history of bowel obstructions. She underwent a computed tomography scan of the abdomen and pelvis which revealed evidence of acute cholecystitis. Patient underwent robotic-assisted laparoscopic cholecystectomy on 06/22/2019. Patient is doing well postoperatively. Her pain is controlled on oral medications. Vital signs are stable. She is stable for discharge home today. Please see EMR for further hospital course details. Discharge Diagnosis: 1. Previous history of bilateral inguinal hernia repair 2. Abnormal computed tomography scan of recurrent left inguinal hernia 3. History of multiple abdominal surgeries 4. History of peritoneal adhesions 5. Hyperlipidemia 6. Hypertensive heart disease 7. Polycythemia 8. Osteopenia 9. Iron deficiency anemia 10. Esophageal dysmotility 11. Periumbilical pain 12. Severe peritoneal adhesions greater omentum to the abdominal wall 13. Possible ureteral stricture 14. Chronic constipation 15. Acute hydrops cholecystitis Nurse practitioner note has been reviewed by physician. Signing provider agrees with the documented findings, assessment, and plan of care. Patient Condition at Discharge: Stable Plan - Discharge Summary Discharge Rx Participant: Yes New Discharge Prescriptions: New Acetaminophen Tab [Tylenol Tab] 1,000 mg PO Q6HR PRN #30 tablet PRN Reason: Pain oxyCODONE HCL [oxyCODONE HCL (IR)] 10 mg PO Q6H PRN 3 Days #12 tab PRN Reason: Pain Continue Atorvastatin [Lipitor] 40 mg PO QAM amLODIPine [Norvasc] 5 mg PO QAM Metoprolol Tartrate [Lopressor] 50 mg PO BID Ergocalciferol [Vitamin D2 (DRISDOL)] 50,000 unit PO SA Losartan Potassium [Cozaar] 100 mg PO DAILY Hydrochlorothiazide [Hydrodiuril] 12.5 mg PO DAILY Discontinued Warfarin [Coumadin] 5 mg PO SUMOWEFR Warfarin Sodium [Coumadin] 2.5 mg PO TUTHSA Discharge Medication List Atorvastatin [Lipitor] 40 mg PO QAM 10/30/17 [History] Metoprolol Tartrate [Lopressor] 50 mg PO BID 07/01/18 [History] amLODIPine [Norvasc] 5 mg PO QAM 07/01/18 [History] Ergocalciferol [Vitamin D2 (DRISDOL)] 50,000 unit PO SA 03/30/19 [History] Hydrochlorothiazide [Hydrodiuril] 12.5 mg PO DAILY 06/15/19 [History] Losartan Potassium [Cozaar] 100 mg PO DAILY 06/15/19 [History] Acetaminophen Tab [Tylenol Tab] 1,000 mg PO Q6HR PRN #30 tablet 06/20/19 [Rx] oxyCODONE HCL [oxyCODONE HCL (IR)] 10 mg PO Q6H PRN 3 Days #12 tab 06/24/19 [Rx] Follow up Appointment(s)/Referral(s): Tyrone Richter MD [Primary Care Provider] - 1 Week (Office will call you with your follow-up date and time. Thank you.) [place] [place] - 06/24/19 10:00 am () Patient Instructions/Handouts: Lysis of Abdominal Adhesions (DC) Activity/Diet/Wound Care/Special Instructions: No lifting over 10 pounds in 2 weeks until July 03. September shower. No bath tub soaks for two weeks until July 03 Diet as tolerated. No driving while on narcotics. Use Tylenol scheduled for the next 24-48 hours for best pain relief. Use ice along incisions for the today to prevent swelling. Discharge Disposition: HOME SELF-CARE <Fani Hernandez - Last Filed: 06/28/19 18:52> Providers Date of admission: 06/20/19 07:18 Attending physician: Fani Hernandez Consults: 06/21/19 09:15 Consult Physician Routine Consulting Provider: Sridhar Banegas Consult Reason/Comments: uretheral stricture, 14F used in OR Do you want consulting provider notified?: Yes Primary care physician: Tyrone Richter Hospital Course: Prior to discharge, patient was having bowel movements. Her LFTs improved for clinical choledocholithiasis. During her hospitalization and procedures, no atrial fibrillation events found as she was on hospital monitor for 7 days.
[2019-06-28] MEDS: SIMETHICONE 80 MG CHEWABLE PO SCH ×2 (17:41→17:58)
[2019-06-28 17:42] VITALS: BP 156/83; PULSE 100; RESP 16; TEMP 97.8
== END 2019-06-28 18:18 | disposition home or self-care (01) | DRG 418 ==
LOC: 2ORMAIN 07:18 → UNDOADMIN 07:18 → EDSTATUS 07:30 → 2ORMAIN 12:51 → ORWHC2ENDO 12:51 → 4SSUR 13:29 → 2ORMAIN 13:29 → ORWHC2ENDO 06-28 18:18 → UNDODISIN 06-28 18:18
PROVIDERS: ADMIT Surgery Plastic and Reconstructive Surgery; ATTEND Surgery Plastic and Reconstructive Surgery
PROC: 0DNU4ZZ Release Omentum, Percutaneous Endoscopic Approach (ICD-10-PCS; 2019-06-20)
PROC: 0DN94ZZ Release Duodenum, Percutaneous Endoscopic Approach (ICD-10-PCS; 2019-06-20)
PROC: 8E0W4CZ Robotic Assisted Procedure of Trunk Region, Percutaneous Endoscopic Approach (ICD-10-PCS; 2019-06-20)
PROC: 8E0W4CZ Robotic Assisted Procedure of Trunk Region, Percutaneous Endoscopic Approach (ICD-10-PCS; 2019-06-22)
PROC: 0FT44ZZ Resection of Gallbladder, Percutaneous Endoscopic Approach (ICD-10-PCS; principal; 2019-06-22 13:20)
DX: K80.62 Calculus of gallbladder and bile duct with acute cholecystitis without obstruction (principal); I42.9 Cardiomyopathy, unspecified; K82.1 Hydrops of gallbladder; E66.01 Morbid (severe) obesity due to excess calories; K82.A1 Gangrene of gallbladder in cholecystitis; D69.6 Thrombocytopenia, unspecified; I11.9 Hypertensive heart disease without heart failure; M17.0 Bilateral primary osteoarthritis of knee; I48.91 Unspecified atrial fibrillation; E78.5 Hyperlipidemia, unspecified; M47.9 Spondylosis, unspecified; S40.021A Contusion of right upper arm, initial encounter; K59.09 Other constipation; N39.46 Mixed incontinence; E78.00 Pure hypercholesterolemia, unspecified; N35.92 Unspecified urethral stricture, female; K66.0 Peritoneal adhesions (postprocedural) (postinfection); K40.91 Unilateral inguinal hernia, without obstruction or gangrene, recurrent; D75.1 Secondary polycythemia; M85.80 Other specified disorders of bone density and structure, unspecified site; D50.9 Iron deficiency anemia, unspecified; Z71.3 Dietary counseling and surveillance; K22.4 Dyskinesia of esophagus; Z53.9 Procedure and treatment not carried out, unspecified reason; Z68.37 Body mass index [BMI] 37.0-37.9, adult; W19.XXXA Unspecified fall, initial encounter; Z79.899 Other long term (current) drug therapy; Z79.01 Long term (current) use of anticoagulants; Z87.39 Personal history of other diseases of the musculoskeletal system and connective tissue; Z98.1 Arthrodesis status; Z86.69 Personal history of other diseases of the nervous system and sense organs; Z98.890 Other specified postprocedural states; Z87.891 Personal history of nicotine dependence; Z91.040 Latex allergy status; Z83.49 Family history of other endocrine, nutritional and metabolic diseases
CPT/HCPCS: 74019; 74177; 78227; 80053; 84132; 85025; 85610; 86850; 86900; 86901; 88304; 94760; 94762

== ENCOUNTER 2019-06-30 22:09 | Emergency (ER) | payer MEDICARE ==
[2019-06-30 22:18] VITALS: TEMP 98.7
--- NOTE | 2019-06-30 22:32 | ED ---
Chest Pain HPI - General Chief Complaint: Chest Pain Stated Complaint: Chest pain Time Seen by Provider: 06/30/19 22:13 Source: patient Mode of arrival: ambulatory Limitations: no limitations - History of Present Illness Initial Comments: This patient is a 69-year-old woman who presents to have evaluation of chest pain and dyspnea. The patient states that symptoms started just around noon today, which contrary to the nursing notes. She indicates the substernal area, states that it feels tight, the sensation is constant and she has not found any worsening or relieving factors. In addition she states it feels like it is difficult to get a breath out. She states she is not having any difficulty with inspiration. MD Complaint: chest pain Onset/Timin -: hour(s) Onset: during rest Pain Location: substernal Pain Radiation: none Severity: moderate Quality: tightness Consistency: constant Improves With: nothing Worsens With: nothing Anginal Symptoms: dyspnea Treatments Prior to Arrival: none - Related Data Home Medications Medication Instructions Recorded Confirmed Atorvastatin [Lipitor] 40 mg PO QAM 10/30/17 06/15/19 Metoprolol Tartrate [Lopressor] 50 mg PO BID 07/01/18 06/15/19 amLODIPine [Norvasc] 5 mg PO QAM 07/01/18 06/15/19 Ergocalciferol [Vitamin D2 50,000 unit PO SA 03/30/19 06/15/19 (DRISDOL)] Hydrochlorothiazide [Hydrodiuril] 12.5 mg PO DAILY 06/15/19 06/15/19 Losartan Potassium [Cozaar] 100 mg PO DAILY 06/15/19 06/15/19 Previous Rx's Medication Instructions Recorded Acetaminophen Tab [Tylenol Tab] 1,000 mg PO Q6HR PRN #30 tablet 06/20/19 oxyCODONE HCL [oxyCODONE HCL (IR)] 10 mg PO Q6H PRN 3 Days #12 tab 06/24/19 Nitroglycerin Sl Tabs [Nitrostat] 0.4 mg SUBLINGUAL Q5M PRN #25 tab 07/01/19 Allergies Allergy/AdvReac Type Severity Reaction Status Date / Time latex Allergy Rash/Hives Verified 06/30/19 22:16 Review of Systems ROS Statement: Those systems with pertinent positive or pertinent negative responses have been documented in the HPI. ROS Other: All systems not noted in ROS Statement are negative. Constitutional: Denies: fever, chills, weakness Respiratory: Reports: cough, dyspnea. Denies: wheezes, hemoptysis Cardiovascular: Reports: chest pain. Denies: palpitations, dyspnea on exertion, orthopnea, edema, syncope Gastrointestinal: Denies: abdominal pain, nausea, vomiting Genitourinary: Denies: dysuria, hematuria Musculoskeletal: Denies: back pain Skin: Denies: rash Neurological: Denies: headache EKG Findings - EKG Comments: EKG Findings:: Low-voltage QRS complex - EKG Results: EKG: interpreted by ISHAAN, sinus rhythm, normal axis, normal ST/T EKG shows: bradycardia (Rate 54 bpm) Past Medical History Past Medical History: Atrial Fibrillation, Hyperlipidemia, Hypertension, Osteoarthritis (OA) Additional Past Medical History / Comment(s): PT STATES THAT SHE FELL WHILE IN [place] ON Thursday06/28/18 AND BRUISED HER RT ARM AND CANNOT BEAR MUCH WEIGHT ON HER LEFT FOOT. History of Any Multi-Drug Resistant Organisms: None Reported Past Surgical History: Appendectomy, Back Surgery, Heart Catheterization, Orthopedic Surgery Additional Past Surgical History / Comment(s): laminectomy, colonoscopies, Carpal Tunnel, feet -bone spurs, shoulder & knee arthroscopy, cervical fusion, recent EGD Past Anesthesia/Blood Transfusion Reactions: No Reported Reaction Additional Past Anesthesia/Blood Transfusion Reaction / Comment(s): pt adopted Past Psychological History: No Psychological Hx Reported Smoking Status: Former smoker Past Alcohol Use History: Occasional Past Drug Use History: None Reported - Past Family History Mother Family Medical History: Unable to Obtain Additional Family Medical History / Comment(s): Adopted General Exam Limitations: no limitations General appearance: alert, in no apparent distress Head exam: Present: atraumatic, normocephalic Eye exam: Present: normal appearance. Absent: scleral icterus, conjunctival injection ENT exam: Present: normal oropharynx Neck exam: Present: normal inspection, full ROM Respiratory exam: Present: wheezes. Absent: respiratory distress, rales, rhonchi, stridor, chest wall tenderness, accessory muscle use, decreased breath sounds Cardiovascular Exam: Present: normal rhythm, bradycardia, normal heart sounds. Absent: systolic murmur, diastolic murmur, rubs, gallop GI/Abdominal exam: Present: soft, other (The patient's surgical incisions are clean dry and intact. There is a small amount of ecchymosis adjacent. No tenderness.). Absent: distended, tenderness, guarding, rebound, rigid, mass Extremities exam: Present: normal inspection, normal capillary refill. Absent: pedal edema, calf tenderness Back exam: Present: normal inspection Neurological exam: Present: alert Skin exam: Present: warm, dry, intact, normal color. Absent: rash Course Vital Signs 06/30/19 06/30/19 07/01/19 22:16 22:30 00:31 Temperature 98.7 F Pulse Rate 56 L 52 L 57 L Respiratory 18 16 18 Rate Blood Pressure 181/75 181/75 177/81 O2 Sat by Pulse 98 97 96 Oximetry 07/01/19 01:00 Temperature Pulse Rate 50 L Respiratory 16 Rate Blood Pressure 163/66 O2 Sat by Pulse 97 Oximetry Disposition Clinical Impression: Dyspnea, Congestive heart failure Disposition: HOME SELF-CARE Condition: Good Instructions (If sedation given, give patient instructions): Heart Failure (DC) Prescriptions: Nitroglycerin Sl Tabs [Nitrostat] 0.4 mg SUBLINGUAL Q5M PRN #25 tab PRN Reason: Dyspnea Is patient prescribed a controlled substance at d/c from ED?: No Referrals: Tyrone Richter MD [Primary Care Provider] - 1-2 days
[2019-06-30 22:40] LABS: Basophils % (A) 0 %; Eosinophils # (A) 0.3 k/uL (0-0.7); Eosinophils % (A) 4 %; HGB 11.2 gm/dL (11.4-16.0); Lymphocytes # (A) 0.9 k/uL (1.0-4.8); Lymphocytes % (A) 15 %; MCH 29.6 pg (25.0-35.0); MCHC 32.8 g/dL (31.0-37.0); MCV 90.4 fL (80.0-100.0); Mean Platelet Volume 6.9; Monocytes # (A) 0.4 k/uL (0-1.0); Monocytes % (A) 7 %; Neutrophils # (A) 4.4 k/uL (1.3-7.7); Neutrophils % (A) 72 %; Platelet Count 294 k/uL (150-450); RBC 3.76 m/uL (3.80-5.40); RDW 14.3 % (11.5-15.5); WBC 6.2 k/uL (3.8-10.6)
--- NOTE | 2019-06-30 22:48 | XR ---
EXAMINATION TYPE: XR chest 2V DATE OF EXAM: 06/30/2019 COMPARISON: NONE HISTORY: Chest pain TECHNIQUE: FINDINGS: Heart is enlarged. There is mild blunting of the costophrenic angles. There is minimal pulm onary congestion. There are chest leads. There are no hilar masses. IMPRESSION: Pleural effusions with mild cardiomegaly. Mild heart failure is possible. No pulmonary co nsolidation.
[2019-06-30 22:50] LABS: ALT 32 U/L (4-34); AST 24 U/L (14-36); African American GFR (CKD) >90 (>60 ml/min/1.73 sqM); Albumin 3.3 g/dL (3.5-5.0); Alkaline Phosphatase 196 U/L (38-126); Amylase <30 U/L (30-110); Anion Gap 7 mmol/L; Blood Urea Nitrogen 12 mg/dL (7-17); Calcium 8.7 mg/dL (8.4-10.2); Carbon Dioxide 27 mmol/L (22-30); Chloride 105 mmol/L (98-107); Glucose 116 mg/dL (74-99); Magnesium 1.7 mg/dL (1.6-2.3); Non-African American GFR(CKD) >90 (>60 ml/min/1.73 sqM); Potassium 4.2 mmol/L (3.5-5.1); Sodium 139 mmol/L (137-145); Total Bilirubin 0.4 mg/dL (0.2-1.3); Total Protein 6.1 g/dL (6.3-8.2)
[2019-06-30 23:00] LABS: INR 0.9 (<1.2); Partial Thromboplastin Time 23.3 sec (22.0-30.0); Prothrombin Time 9.7 sec (9.0-12.0)
[2019-06-30 23:07] LABS: D-Dimer 5.08 mg/L FEU (<0.60)
--- NOTE | 2019-07-01 00:17 | CT ---
EXAMINATION TYPE: CT chest angio for PE DATE OF EXAM: 06/30/2019 COMPARISON: None HISTORY: PE CT DLP: 1482.3 mGycm Automated exposure control for dose reduction was used. CONTRAST: Performed with IV Contrast, patient injected with 100 mL of Isovue 370. There are 3-D post processed images. There are bilateral pleural effusions and more on the right side. There is bilateral lower lobe atele ctasis. Heart is slightly enlarged. There is no pericardial effusion. Thoracic aorta shows no aneurys m or dissection. There is no mediastinal adenopathy. There are no hilar masses. There is normal contrast opacification of the pulmonary arteries. There are no filling defects. Thora cic spine is intact. Bony thorax is intact. IMPRESSION: No evidence of pulmonary embolism. Cardiomegaly with pleural effusions and basilar atelectasis could relate to congestive heart failure.
[2019-07-01] MEDS ORDERED: ENALAPRILAT 1.25 MG/ML 1 ML VIAL IVP STA (00:45)
[2019-07-01] MEDS ORDERED: NITROGLYCERIN SL TABS 0.4 MG TAB SUBLINGUAL STA (00:48)
--- NOTE | 2019-07-01 00:49 | US ---
EXAMINATION TYPE: US venous doppler duplex LE DATE OF EXAM: 07/01/2019 12:32 AM COMPARISON: NONE CLINICAL HISTORY: Possible PE, positive d-dimer. Possible PE. Positive D-Dimer. No hx of DVT. SIDE PERFORMED: Bilateral TECHNIQUE: The lower extremity deep venous system is examined utilizing real time linear array sonog pierce with graded compression, doppler sonography and color-flow sonography. VESSELS IMAGED: External Iliac Vein (EIV) Common Femoral Vein Deep Femoral Vein Greater Saphenous Vein * Femoral Vein Popliteal Vein Small Saphenous Vein * Proximal Calf Veins (* superficial vessels) Right Leg: No evidence of DVT in veins imaged at this time from prox calf veins to EIV. Left Leg: No evidence of DVT in veins imaged at this time from prox calf veins to EIV. Limited visi bility of distal femoral vein in compression view. IMPRESSION: No sign of deep vein thrombosis in both legs.
[2019-07-01 01:14] VITALS: BP 163/66; PULSE 50; RESP 16
== END 2019-07-01 01:30 | disposition home or self-care (01) ==
LOC: EC 22:09
DX: I50.9 Heart failure, unspecified (principal); R07.89 Other chest pain; R58 Hemorrhage, not elsewhere classified; R07.2 Precordial pain; E78.5 Hyperlipidemia, unspecified; I11.0 Hypertensive heart disease with heart failure; Z87.891 Personal history of nicotine dependence; Z91.040 Latex allergy status; Z79.899 Other long term (current) drug therapy; Z95.818 Presence of other cardiac implants and grafts; Z98.890 Other specified postprocedural states
CPT/HCPCS: 36415; 85379; 83880; 80053; 82150; 83690; 83735; 84484; 85025; 85610; 85730; 71046; 71275; 99285; 96374; Q9967; 93970

== ENCOUNTER → 2023-03-30 | Outpatient (CLI) | payer MEDICARE ==
--- NOTE | 2023-03-30 14:35 | CA ---
Transthoracic Echo Report Name: Renetta Cardenas Age: 73 Gender: F : 1950 Exam Date: 03/30/2023 13:49 Exam Location: [facility] Ht (in): 60 Wt (lb): 170 Ordering Physician: Tyrone Richter MD Attending/Referring Phys: Ribbon Tier Sanaz Moore RDCS Procedure CPT: Indications: I48.0, I65.23 OCCLUSION AND STENOSIS Cardiac Hx: Technical Quality: Good Contrast 1: Total Dose (mL): Contrast 2: Total Dose (mL): MEASUREMENTS (Male / Female) Normal Values 2D ECHO LV Diastolic Diameter PLAX 5.2 cm 4.2 - 5.9 / 3.9 - 5.3 cm LV Systolic Diameter PLAX 2.9 cm IVS Diastolic Thickness 1.1 cm 0.6 - 1.0 / 0.6 - 0.9 cm LVPW Diastolic Thickness 1.3 cm 0.6 - 1.0 / 0.6 - 0.9 cm LV Relative Wall Thickness 0.5 RV Internal Dim ED PLAX 3.1 cm LA Systolic Diameter LX 4.2 cm 3.0 - 4.0 / 2.7 - 3.8 cm LV Diastolic Volume MOD 4C 88.3 cm??? LV Systolic Volume MOD 4C 46.3 cm??? LV Ejection Fraction MOD 4C 47.6 % LV Cardiac Index MOD 4C 2373.2 cm???/min???m??? LV Diastolic Length 4C 8.6 cm LV Systolic Length 4C 6.6 cm LV Diastolic Volume MOD 2C 87.5 cm??? LV Systolic Volume MOD 2C 36.8 cm??? LV Ejection Fraction MOD 2C 58.0 % LV Cardiac Index MOD 2C 2865.2 cm???/min???m??? LV Diastolic Length 2C 7.9 cm LV Systolic Length 2C 6.3 cm LA Volume 72.0 cm??? 18 - 58 / 22 - 52 cm??? LA Volume Index 39.1 cm???/m??? 16 - 28 cm???/m??? M-MODE Aortic Root Diameter MM 3.1 cm MV E Point Septal Separation 0.2 cm AV Cusp Separation MM 2.2 cm DOPPLER AV Peak Velocity 155.6 cm/s AV Peak Gradient 9.7 mmHg MV Area PHT 2.8 cm??? Mitral E Point Velocity 125.2 cm/s Mitral A Point Velocity 101.4 cm/s Mitral E to A Ratio 1.2 MV Deceleration Time 270.1 ms MV E' Velocity 9.0 cm/s Mitral E to MV E' Ratio 13.9 TR Peak Velocity 308.8 cm/s TR Peak Gradient 38.1 mmHg Right Ventricular Systolic Press 42.9 mmHg FINDINGS Left Ventricle Left ventricular ejection fraction is estimated at 55-60 %. Left ventricular cavity size normal. Mildly increased septal wall thickness. Mildly increased posterior wall thickness. Right Ventricle Normal right ventricular size. Mild pulmonary hypertension. Right Atrium Normal right atrial size. Left Atrium Mildly increased left atrial diameter. Moderately increased left atrial volume. Mildly increased left atrial area. Mitral Valve Mitral valve thickened. Aortic Valve Trileaflet aortic valve. No aortic valve stenosis or regurgitation. Tricuspid Valve Structurally normal tricuspid valve. Mild tricuspid stenosis. Pulmonic Valve Structurally normal pulmonic valve. Trace pulmonic regurgitation. Pericardium No pericardial effusion. Aorta Normal size aortic root and proximal ascending aorta. CONCLUSIONS Left ventricular ejection fraction 55-60% Mildly increased left ventricular wall thickness RVSP 42 Mildly dilated left atrium No pericardial effusion Previewed by: Dr. Chan Alcazar DO (Electronically Signed) Final Date: 30 March 2023 14:34
--- NOTE | 2023-03-30 15:03 | US ---
EXAMINATION TYPE: US carotid duplex BILAT DATE OF EXAM: 03/30/2023 COMPARISON: NONE CLINICAL INDICATION: Female, 73 years old with history of I65.23 OCCLUSION AND STENOSIS; TECHNIQUE: Carotid duplex ultrasound examination. Indirect Doppler criteria was utilized. FINDINGS: EXAM MEASUREMENTS: RIGHT: Peak Systolic Velocity (PSV) cm/sec ----- Right CCA: 79.8 ----- Right ICA: 96.3 ----- Right ECA: 125.3 ICA/CCA ratio: 1.2 RIGHT: End Diastole cm/sec ----- Right CCA: 17.1 ----- Right ICA: 19.3 ----- Right ECA: 13.9 LEFT: Peak Systolic Velocity (PSV) cm/sec ----- Left CCA: 95.2 ----- Left ICA: 154.9 ----- Left ECA: 127.0 ICA/CCA ratio: 1.6 LEFT: End Diastole cm/sec ----- Left CCA: 21.5 ----- Left ICA: 22.9 ----- Left ECA: 22.0 VERTEBRALS (direction of flow): Right Vertebral: Antegrade Left Vertebral: Antegrade Rhythm: Normal MANAGER OF COMPLIANCE NOTES: Moderate plaque bilateral bifurcations. Tortuous left ICA with mildly increased ve locities IMPRESSION: Less than 50% stenosis bilateral carotid bifurcations. Criteria for Assigning % of Stenosis / Diameter reduction (Estimation based on the indirect measurements of the internal carotid artery velocities (ICA PSV). 1. Normal (no stenosis)=ICA PSV < 125 cm/s: ratio < 2.0: ICA EDV<40 cm/s. 2. Less than 50% stenosis=ICA PSV < 125 cm/s: ratio < 2.0: ICA EDV<40 cm/s. 3. 50 to 69% stenosis=ICA PSV of 125 to 230 cm/s: ration 2.0 ? 4.0: ICA EDV 40-100 cm/s. 4. Greater than 70% stenosis to near occlusion= ICA PSV > 230 cm/s: ratio > 4.0: ICA EDV > 100 cm/s. 5. Near occlusion= ICA PSV velocities may be low or undetectable: variable ratio and ICA EDV. 6. Total occlusion=unable to detect flow.
== END | disposition home or self-care (01) ==
LOC: RADECHMAIN 13:35
PROVIDERS: ATTEND Internal Medicine
DX: I65.23 Occlusion and stenosis of bilateral carotid arteries (principal); I48.0 Paroxysmal atrial fibrillation; I51.7 Cardiomegaly
CPT/HCPCS: 93306; 93880

== ENCOUNTER → 2024-01-05 | Outpatient (CLI) | payer MEDICARE ==
[2024-01-05 16:19] LABS: INR 4.29 sec (0.93-1.11); Prothrombin Time 42.1 sec (9.9-11.9)
[2024-01-05 16:54] LABS: BUN/Creat Ratio 16.57 Ratio (12.00-20.00); Blood Urea Nitrogen 23.2 mg/dL (9.0-27.0); Calcium 9.7 mg/dL (8.7-10.3); Carbon Dioxide 24.4 mmol/L (21.6-31.8); Chloride 105 mmol/L (96-109); Glucose 110 mg/dL (70-110); Potassium 4.7 mmol/L (3.5-5.5); Sodium 142 mmol/L (135-145)
[2024-01-05 17:02] LABS: Basophils # (A) 0.03 X 10*3/uL (0.00-0.10); Basophils % (A) 0.5 %; Eosinophils # (A) 0.07 X 10*3/uL (0.04-0.35); Eosinophils % (A) 1.1 %; HCT 40.4 % (37.2-46.3); Lymphocytes # (A) 1.01 X 10*3/uL (0.90-5.00); Lymphocytes % (A) 16.5 %; MCH 30.7 pg (27.0-32.0); MCHC 32.2 g/dL (32.0-37.0); MCV 95.5 FL (80.0-97.0); Mean Platelet Volume 10.6 FL (9.5-12.2); Monocytes # (A) 0.47 X 10*3/uL (0.20-1.00); Monocytes % (A) 7.7 %; NRBC Per 100 WBC 0 X 10*3/uL (0.00-0.01); Neutrophils # (A) 4.53 X 10*3/uL (1.80-7.70); Neutrophils % (A) 73.9 %; Platelet Count 225 X 10*3/uL (140-440); RBC 4.23 X 10*6/uL (4.10-5.20); RDW 13.6 % (11.5-14.5); WBC 6.13 X 10*3/uL (4.50-10.00)
== END | disposition home or self-care (01) ==
LOC: LABPAT 11:29
PROVIDERS: ATTEND Orthopaedic Surgery
DX: Z01.818 Encounter for other preprocedural examination
CPT/HCPCS: 80048; 85025; 85610; 86850; 86900; 86901; 87070

== ENCOUNTER 2024-01-07 06:43 | Observation (INO) | payer MEDICARE ==
--- NOTE | 2024-01-06 14:48 | HP ---
HISTORY AND PHYSICAL ANTICIPATED DATE OF SURGERY: 01/07/2024. HISTORY OF PRESENT ILLNESS: Renetta Cardenas is a patient seen with symptomatic left hip osteoarthritis. We discussed options regarding treatment. She elected to proceed with left total hip arthroplasty via direct anterior approach. Consent was obtained. Preoperative cardiac clearance was provided by Dr. Henderson. PAST MEDICAL HISTORY: Cardiovascular disease, hypertension, hyperlipidemia. PAST SURGICAL HISTORY: Rotator cuff surgery. DAILY MEDICATIONS: 1. Metformin. 2. Amlodipine. 3. Metoprolol. 4. Coumadin. 5. Losartan. ALLERGIES: None reported. SOCIAL HISTORY: She denies tobacco use. PHYSICAL EVALUATION OF LEFT HIP: She has limited range of motion with pain. Positive hip impingement sign. Straight- leg raise is negative. Distal neurovascular exam is intact. IMAGING DATA: Radiographs of her left hip revealed severe osteoarthritic changes. IMPRESSION: 1. Left hip osteoarthritis. 2. Atrial fibrillation. 3. Hypertension. 4. [id number] diabetes. PLAN: Direct anterior approach, left total hip arthroplasty. MMODL / IJN: [id number] /
[~2024-01-07 06:43] MED LIST changes: -ACETAMINOPHEN IV (For NPO) 1,000 MG in EMPTY BAG 1 BAG IVPB ONE; -CHLORHEXIDINE GLUCONATE 15 ML CUP MUCOUS MEM ONE; -DEXAMETHASONE SOD PHOSPHATE 10 MG/ML 1 ML VIAL IV ONE; -ENOXAPARIN 40 MG/0.4 ML SYRINGE SQ STA; -MIDAZOLAM 2 MG/2 ML VIAL IV PRN; -ONDANSETRON 4 MG/2 ML VIAL IVP ONE; -PANTOPRAZOLE 40 MG/10 ML VIAL IV STA; +TRANEXAMIC 1,000 MG/100ML-NACL 1,000 MG in SALINE 1 100ML.BAG IVPB PRN; +VANCOMYCIN IV PER PHARMACY 1 EACH MISC MISCELLANE PRN
[2024-01-07 07:14] LABS: Glucose,Whole Blood 23 mg/dL (70-110)
[2024-01-07 07:14] LABS: Glucose,Whole Blood 101 mg/dL (70-110)
[2024-01-07] MEDS: ACETAMINOPHEN TAB 500 MG TAB PO PRN (07:14)
[2024-01-07] MEDS: MELOXICAM 7.5 MG TAB PO PRN (07:15)
[2024-01-07] MEDS: LACTATED RINGERS 1,000 ML IV SCH (07:15)
[2024-01-07] MEDS: ONDANSETRON 4 MG/2 ML VIAL IVP ONE (07:20)
[2024-01-07] MEDS: DEXAMETHASONE SOD PHOSPHATE 4 MG/ML 1 ML VIAL IV ONE (07:21)
[2024-01-07] MEDS: VANCOMYCIN 1,250 MG in SODIUM CHLORIDE 0.9% 250 ML IVPB PRN (07:21)
[2024-01-07] MEDS: IV FLUID CONTINUATION 1,000 ML IV ONE (07:32)
[2024-01-07 07:40] LABS: INR 1.6 (<1.2); Partial Thromboplastin Time 33.6 sec (22.0-30.0); Prothrombin Time 16.3 sec (10.0-12.5)
[2024-01-07] MEDS ORDERED: LIDOCAINE 1% INJ 10MG/ML (20 ML MDV) ONE (07:51)
[2024-01-07] MEDS ORDERED: SUCCINYLCHOLINE CHLORIDE 200 MG/10 ML VIAL IV ONE (07:51)
[2024-01-07] MEDS ORDERED: TRANEXAMIC 1,000 MG/100ML-NACL PREMIX BAG ONE (07:51)
[2024-01-07] MEDS ORDERED: GLYCOPYRROLATE 0.2 MG/ML 2 ML VIAL ONE (07:51)
[2024-01-07] MEDS ORDERED: HYDROmorphone (PF) 1 MG/ML ONE (07:51)
[2024-01-07] MEDS ORDERED: PROPOFOL 10 MG/ML 20 ML VIAL IV ONE (07:51)
[2024-01-07] MEDS ORDERED: MIDAZOLAM 2 MG/2 ML VIAL ONE (07:51)
[2024-01-07] MEDS ORDERED: ROCURONIUM 10 MG/ML (5 ML VIAL) IV ONE (07:51)
[2024-01-07] MEDS ORDERED: NEOSTIGMINE 1 MG/ML 10 ML VIAL ONE (07:51)
[2024-01-07] MEDS ORDERED: fentaNYL (PF) 50 MCG/ML 2 ML AMP ONE (07:51)
[2024-01-07] MEDS ORDERED: hydrALAZINE HCL 20 MG/ML 1 ML VIAL ONE (07:51)
[2024-01-07] MEDS ORDERED: DEXAMETHASONE SOD PHOSPHATE 4 MG/ML 1 ML VIAL ONE (07:51)
[2024-01-07] MEDS ORDERED: KETAMINE HCL IN 0.9 % NACL 50 MG/5 ML SYRINGE ONE (07:51)
[2024-01-07] MEDS ORDERED: ROPIVACAINE 5 MG/ML 30 ML VIAL ONE (07:51)
[2024-01-07] MEDS: ceFAZolin 1,000 MG in SODIUM CHLORIDE 0.9% 1,000 ML IRRIGATION ONE (08:30)
[2024-01-07] MEDS ORDERED: ONDANSETRON 4 MG/2 ML VIAL IVP PRN (09:23)
[2024-01-07] MEDS ORDERED: HYDROmorphone 0.5 MG/0.5 ML SYRINGE IVP PRN ×2 (09:23)
[2024-01-07] MEDS ORDERED: HYDROcodone/APAP 5-325MG 1 EACH TAB PO PRN (09:23)
[2024-01-07] MEDS ORDERED: NALOXONE 0.4 MG/ML 1 ML VIAL IV PRN (09:23)
--- NOTE | 2024-01-07 09:23 | P.OP ---
Date of Procedure: 01/07/24 Preoperative Diagnosis: Left hip osteoarthritis Postoperative Diagnosis: Left hip osteoarthritis Procedure(s) Performed: Direct anterior left total hip arthroplasty Implants: 1. DePuy Corail 135 degree standard collared KA size 10 press-fit femoral stem 2. DePuy Buhl 52 mm press-fit acetabular shell 3. DePuy Buhl neutral polyethylene acetabular liner 36 mm ID 52 mm OD 4. Biolox delta ceramic femoral head +1.5 36 mm Anesthesia: SAGARA Surgeon: Akira Enciso Casino Porter #1: Kuldip Armstrong Estimated Blood Loss (ml): 55 Pathology: none sent Condition: stable Disposition: PACU Indications for Procedure: 73-year-old patient seen with symptomatic left hip osteoarthritis. After having treatment options discussed, she elected to proceed with direct anterior left total hip arthroplasty. Operative Findings: See description of procedure Description of Procedure: The patient was taken to the operative suite. Patient underwent a general anesthetic by the department of anesthesia. Patient was then transferred to the [place] table. Patient was given preoperative IV antibiotics and TXA. Both lower extremities were placed in standard leg spars. The hip was then prepped and draped in the normal sterile orthopedic fashion. A standard anterior incision was made beginning 3 cm lateral and 1 cm distal to the ASIS extending 10 cm. Dissection was then carried down through the subcutaneous soft tissues down to the fascia overlying the tensor fascia richard. An incision was now made through the fascia. Careful dissection was taken down exposing the tensor fascia richard muscle. A Cobra retractor was now placed along the medial femoral neck and a second one along the lateral femoral neck. The venous circumflex vessels were now identified, cauterized and clipped. We identified the anterior hip capsule. An incision was made through the hip capsule along the lateral border. I performed a partial anterior capsulectomy. Retractors were now placed around the femoral neck itself. A femoral neck cut was now made with a sagittal saw. It was completed with an osteotome at the lateral neck area. The femoral head was now removed without difficulty. The extremity was now rotated to 60 of external rotation. It was locked in position. Residual labrum was now debrided out. Serial reaming was performed of the acetabulum while Jose MICHAEL assisted holding an anterior retractor for exposure. Once we reached the appropriate size and a trial was position and fit nicely. The appropriate size was now chosen opened and made available. It was introduced into the acetabulum without difficulty. The C-arm/fluoroscopy was now brought into the operative field. We made sure we had a true AP pelvic view. We now under direct C- arm/fluoroscopy introduced into the acetabular component with appropriate version and inclination. I held the cup in appropriate position well Jose MICHAEL used a mallet to seat the acetabular component. I noted the component now to be well seated and stable. Acetabular cup introduce her was removed. The C-arm was pulled back. An appropriate liner was introduced and clicked into position. It was felt to be stable. At this point retractors were removed. The extremity was now placed into 130 external rotation with no traction. The leg was now dropped to the ground and adducted. Appropriate retractors were now positioned along the proximal femur. We also placed our femoral look into position. Additional capsular releasing was performed to gain access to the proximal femur. We now used a box osteotome. A canal finder was now utilized. Serial broaching was now performed with the assistance of Jose MICHAEL tapping the broaches down with a mallet while held the broach in appropriate rotation a nd position. This was done until we reached the appropriate size with good overall rotational stability. Appropriate calcar planing was performed. A trial head/neck was placed into position. The hip was now reduced. The C- arm/fluoroscopy was brought back into the operative field. I obtained an AP pelvis was demonstrated adequate leg length alignment. The trial components appeared adequately sized and positioned. The C-arm/fluoroscopy was pulled back. Retractors were repositioned and the hip was dislocated. The leg was again taken down to the ground and adducted. Appropriate retractors were repositioned as well as the femoral hook. All trial components were removed. The femoral implant was opened along with the femoral head. The femoral implant was introduced on the appropriate handle into our pre-broached area. I held the component position well Jose MICHAEL used a mallet to seat the femoral component. The femoral component was now noted to be well seated and stable.. The femoral head was introduced with good positioning and fixation noted. Retractors were now removed. The hip was now reduced. There appeared be good positioning of the hip confirmed on intraoperative fluoroscopy. Spot films were obtained to document this. A second gram of TXA was given. Bipolar cautery had been utilized intermittently through the procedure for hemostasis. The wound was irrigated copiously with pulse lavage mechanical irrigation. The fascia was repaired with Vicryl suture. The subcutaneous soft tissues were repaired in layers with Vicryl suture. The skin was approximated with pernio/Dermabond. Sterile dressings were applied. Patient was then awakened, transferred to a bed and taken to recovery in stable condition. Jose MICHAEL assisted with the complex procedure.
--- NOTE | 2024-01-07 09:44 | XR ---
EXAMINATION TYPE: XR Hip Complete LT, FL guidance operating room DATE OF EXAM: 01/07/2024 COMPARISON: NONE HISTORY: 72-year-old female anterior left hip replacement TECHNIQUE: Intraoperative fluoroscopy FINDINGS: DAP 0.3698 FL 8 SEC LEFT ANTERIOR HIP IN OR
[2024-01-07] MEDS: HYDROmorphone 0.5 MG/0.5 ML SYRINGE IVP PRN ×2 (09:57→12:39)
[2024-01-07 12:06] LABS: Glucose,Whole Blood 156 mg/dL (70-110)
[2024-01-07] MEDS: SODIUM CHLORIDE 0.9% 1,000 ML IV SCH (12:42)
--- NOTE | 2024-01-07 15:59 | P.ANPRN ---
Procedure Note - Anesthesia - Nerve Block Performed Left Bandar Single Time Out Performed: Yes Date of Procedure: 01/07/24 Procedure Start Time: 12:00 Procedure Stop Time: 12:10 Location of Patient: Phase I Indication: Acute Post-Operative Pain, Analgesia, Dx/Pain Location (Left hip pain ), Requested by Surgeon Sedation Type: Sedate with meaningful contact maintained Preparation: Sterile Prep Position: Supine Catheter: None Needle Types: Pajunk Needle Gauge: 21 Ultrasound used to visualize needle placement: Yes Ultrasound used to observe medication spread: Yes Injectate: 0.5% Ropivacaine (see comment for volume) (20ml) Blood Aspirated: No Pain Paresthesia on Injection Noted: No Resistance on Injection: Normal Image Stored and Saved: Yes Events: Uneventful and Well Tolerated
[2024-01-07] MEDS: HYDROcodone/APAP 5-325MG 1 EACH TAB PO PRN (16:17)
[2024-01-07 16:47] LABS: Glucose,Whole Blood 133 mg/dL (70-110)
[2024-01-07] MEDS: WARFARIN 5 MG TAB PO ONE (17:36)
[2024-01-07] MEDS ORDERED: ACETAMINOPHEN TAB 500 MG TAB PO PRN (17:36)
--- NOTE | 2024-01-07 17:48 | P.CONS ---
History of Present Illness - Reason for Consult Consult date: 01/07/24 Medical management Requesting physician: Akira Enciso - Chief Complaint Status post left anterior total hip arthroplasty. - History of Present Illness HISTORY OF PRESENT ILLNESS: This is a 73-year-old female with a previous medical history significant for hypertension and hypertensive cardiovascular disease, hyperlipidemia, diabetes mellitus type 2, history of paroxysmal atrial fibrillation currently anticoagulated with Coumadin 5 mg at bedtime, patient underwent left total hip arthroplasty via anterior approach that was done by Dr. Enciso that was done successfully and we were asked to see the patient for postoperative medical management. Patient was laying down in bed in no apparent distress, she denies any chest pain, shortness of breath, she denies any abdominal pain, she felt a bit nauseated, but no vomiting, she has no acute symptoms her vital signs were stable her and her daughter were at the bedside. REVIEW OF SYSTEMS: Constitutional: No documented fever, no chills, no night sweats. No weight change. No weakness, fatigue or lethargy. No daytime sleepiness. EENT: No headache. No blurred vision or double vision, no loss of vision. No loss of Hearing, no ringing in the ears, no dizziness. No nasal drainage or con gestion. No epistaxis. No sore throat. Lungs: No shortness of breath, no cough, no sputum production. No wheezing. Reports dyspnea with activity. Cardiovascular: No chest pain, no lower extremity edema. No palpitations. No paroxysmal nocturnal dyspnea. No orthopnea. No lightheadedness or dizziness. No syncopal episodes. Abdominal: Reports abdominal pain. No nausea, vomiting. No diarrhea. No constipation. No bloody or tarry stools reports loss of appetite. Genitourinary: No dysuria, increased frequency, urgency. No urinary retention. Musculoskeletal: No myalgias. No muscle weakness, no gait dysfunction, no frequent falls. No back pain. No neck pain. Integumentary: Left hip wound is covered with dressing no lesions. No rash or pruritus. No unusual bruising. No change in hair or nails. Neurologic: No aphasia. No facial droop. No change in mentation. No head injury. No headache. No paralysis. No paresthesia. Psychiatric: No depression. No anxiety. No mood swings. Endocrine: No abnormal blood sugars. No weight change. PAST MEDICAL HISTORY: Hypertension and hypertensive cardiovascular disease. Mixed hyperlipidemia. Diabetes mellitus type 2. Paroxysmal atrial fibrillation. Osteoarthritis. Vitamin D deficiency. PAST SURGICAL HISTORY: Laminectomy x 3. Cervical fusion. Right shoulder repair. Left meniscal tear repair. Cholecystectomy. Partial hysterectomy. Carpal tunnel surgery x 2. Trigger finger x 2. Colonoscopy Left total hip arthroplasty. SOCIAL HISTORY: Patient used to smoke about 4 to 5 pack on a daily basis, she smoked since the age of 16 and quit about 30 years ago in November 2017, she drinks occasionally, she denies any drug use or abuse, she lives with her . FAMILY HISTORY: Patient was adopted she does not know much about her family. PHYSICAL EXAMINATION: General: 73-year-old female laying down in bed in no apparent distress. HEENT: Head is atraumatic, normocephalic, pupils were equal round reactive to light and recommendation, extraocular muscle movement were intact, sclera nonicteric, conjunctivae were pale, mucous membranes of the mouth are somewhat dry. Neck: Supple, no JVP, normal carotid upstroke bilaterally, no lymphadenopathy. Chest: Decreased breath sounds at the bases, few rhonchi, no expiratory wheezes, no chest wall tenderness, no intercostal retractions. Heart: First heart sound is normal, second heart sounds normal there is systolic ejection murmur 2/6 located in the left sternal border. Abdomen: Soft, nontender, nondistended, positive bowel sounds. Extremities: There is no edema no calf tenderness DP +2 bilaterally. Neurologic examination: Patient is awake alert and oriented x3, cranial nerves II-12 appear grossly intact, muscle power were 5 out of 5 in upper extremities and 5 out of 5 in bilateral lower extremities, deep tendon reflexes normal bilaterally. ASSESSMENT AND PLAN: 1. Postoperative day #0 status post left total hip arthroplasty via anterior approach. Patient was instructed to use the incentive spirometer to reduce the incidence of atelectasis and healthcare associated pneumonia, continue current pain management as outlined by orthopedic surgery, continue current bowel care, early ambulation, DVT prophylaxis patient will be restarted back on Coumadin 5 mg at bedtime, keep her INR between 2-3, I will follow-up with the patient very closely, patient will be seen by physical therapy tomorrow morning, hopefully she will be able to get out of the hospital in the next 24 hours. 2. Hypertension and hypertensive cardiovascular disease. Continue patient on losartan 100 mg once every day, hydrochlorothiazide 12.5 mg once every day, continue patient also on amlodipine 5 mg once every day continue metoprolol 25 mg orally once every day, monitor the patient blood pressure very closely. 3. Mixed hyperlipidemia. Continue patient on atorvastatin 40 mg once every day, monitor the patient lipid panel, keep LDL 55-70. 4. Diabetes mellitus type 2. Continue patient on metformin 500 mg a bedtime,, monitor the patient blood glucose level before each meal and at bedtime. May order sliding scale insulin. 5. Osteoarthritis. Continue current pain management. 6. Vitamin D deficiency. Continue vitamin D supplement. 7. Paroxysmal atrial fibrillation continue metoprolol 25 mg once every day, restart the patient on Coumadin 5 mg at bedtime recheck PT and INR tomorrow morning. 8. DVT prophylaxis. Continue patient on Coumadin keep INR between 2-3. 9. GI prophylaxis. Not needed 10. Thank you for the consult will follow the patient along with you. Past Medical History Past Medical History: Atrial Fibrillation, Diabetes Mellitus, Hyperlipidemia, Hypertension, Osteoarthritis (OA) Additional Past Medical History / Comment(s): PT STATES THAT SHE FELL WHILE IN [place] ON Thursday06/28/18 AND BRUISED HER RT ARM AND CANNOT BEAR MUCH WEIGHT ON HER LEFT FOOT. History of Any Multi-Drug Resistant Organisms: None Reported Past Surgical History: Appendectomy, Back Surgery, Heart Catheterization, Orthopedic Surgery Additional Past Surgical History / Comment(s): laminectomy, colonoscopies, Carpal Tunnel, feet-bone spurs, shoulder & knee arthroscopy, cervical fusion, EGD Past Anesthesia/Blood Transfusion Reactions: No Reported Reaction Additional Past Anesthesia/Blood Transfusion Reaction / Comm: pt adopted- FAMILY HX UNKNOWN Past Psychological History: No Psychological Hx Reported Smoking Status: Former smoker Past Alcohol Use History: Occasional Additional Past Alcohol Use History / Comment(s): Smoked from her teens until 1990, 5 PPD. Instructed no alcohol 24 hrs prior to surg. Past Drug Use History: None Reported - Past Family History Mother Family Medical History: Unable to Obtain Additional Family Medical History / Comment(s): Adopted Medications and Allergies Home Medications Medication Instructions Recorded Confirmed Type Atorvastatin [Lipitor] 10 mg PO QAM 10/30/17 01/07/24 History Metoprolol Tartrate [Lopressor] 25 mg PO BID 07/01/18 01/07/24 History amLODIPine [Norvasc] 5 mg PO QAM 07/01/18 01/07/24 History Ergocalciferol [Vitamin D2 50,000 unit PO SA 03/30/19 01/07/24 History (DRISDOL)] Losartan Potassium [Cozaar] 100 mg PO DAILY 06/15/19 01/07/24 History hydroCHLOROthiazide [Hydrodiuril] 12.5 mg PO DAILY 06/15/19 01/07/24 History Acetaminophen/Diphenhydramine 1 tab PO HS PRN 01/01/24 01/07/24 History [Tylenol PM 500-25mg] Warfarin [Coumadin] 5 mg PO HS 01/01/24 01/07/24 History metFORMIN HCL ER [Glucophage XR] 500 mg PO HS 01/01/24 01/07/24 History Allergies Allergy/AdvReac Type Severity Reaction Status Date / Time latex Allergy Rash/Hives Verified 01/07/24 07:20 Physical Exam Vitals: Vital Signs Temp Pulse Pulse Pulse Resp BP BP 01/07/24 15:32 46 L 01/07/24 14:33 49 L 01/07/24 14:02 51 L 01/07/24 13:34 55 L 01/07/24 13:19 49 L 01/07/24 13:03 50 L 01/07/24 12:47 46 L 01/07/24 12:32 98.2 F 52 L 01/07/24 12:00 51 L 16 120/58 01/07/24 11:30 45 L 18 116/54 01/07/24 11:15 47 L 17 137/58 01/07/24 11:00 47 L 16 117/57 01/07/24 10:45 45 L 15 127/56 01/07/24 10:30 46 L 15 124/83 01/07/24 10:14 51 L 17 128/61 01/07/24 09:58 57 L 15 112/57 01/07/24 09:43 97.2 F L 70 16 135/74 01/07/24 06:57 97.4 F L 56 L 18 174/74 BP Pulse Ox 01/07/24 15:32 133/68 01/07/24 14:33 115/47 01/07/24 14:02 137/61 01/07/24 13:34 109/41 01/07/24 13:19 105/42 01/07/24 13:03 120/47 01/07/24 12:47 112/56 01/07/24 12:32 149/67 100 01/07/24 12:00 98 01/07/24 11:30 99 01/07/24 11:15 95 01/07/24 11:00 100 01/07/24 10:45 97 01/07/24 10:30 99 01/07/24 10:14 95 01/07/24 09:58 100 01/07/24 09:43 98 01/07/24 06:57 96 Intake and Output 01/07/24 01/07/24 01/07/24 06:59 14:59 22:59 Intake Total 1151 Output Total 55 Balance 1096 Intake: IV 1151 Output: Estimated Blood Loss 55 Other: Weight 80 kg Results CBC & Chem 7: 01/08/24 05:21 Labs: Abnormal Lab Results - Last 24 Hours (Table) 01/07/24 01/07/24 01/07/24 Range/Units 07:09 07:10 12:05 PT 16.3 H (10.0-12.5) sec INR 1.6 H (<1.2) APTT 33.6 H (22.0-30.0) sec POC Glucose (mg/dL) 23 L* 156 H (70-110) mg/dL 01/07/24 Range/Units 16:46 PT (10.0-12.5) sec INR (<1.2) APTT (22.0-30.0) sec POC Glucose (mg/dL) 133 H (70-110) mg/dL
[2024-01-07] MEDS ORDERED: diphenhydrAMINE 25 MG CAP PO PRN (18:30)
[2024-01-07 20:38] LABS: Glucose,Whole Blood 132 mg/dL (70-110)
[2024-01-07] MEDS ORDERED: WARFARIN 5 MG TAB PO SCH (21:00)
[2024-01-07] MEDS: metFORMIN 500 MG TAB PO SCH (22:10)
[2024-01-07] MEDS: METOPROLOL TARTRATE 25 MG TAB PO SCH (22:10)
[2024-01-07] MEDS: SENNOSIDES-DOCUSATE SODIUM 1 EACH TAB PO SCH (22:10)
[2024-01-08 05:49] LABS: Glucose,Whole Blood 114 mg/dL (70-110)
[2024-01-08 06:37] LABS: INR 1.5 (<1.2); Prothrombin Time 15.7 sec (10.0-12.5)
[2024-01-08 08:48] LABS: Basophils # (A) 0.01 X 10*3/uL (0.00-0.10); Basophils % (A) 0.1 %; Eosinophils # (A) 0 X 10*3/uL (0.04-0.35); Eosinophils % (A) 0 %; HCT 31.4 % (37.2-46.3); HGB 10.2 g/dL (12.0-15.0); Lymphocytes # (A) 0.58 X 10*3/uL (0.90-5.00); Lymphocytes % (A) 6.2 %; MCH 31.2 pg (27.0-32.0); MCHC 32.5 g/dL (32.0-37.0); Mean Platelet Volume 10.5 FL (9.5-12.2); Monocytes % (A) 7.5 %; NRBC Per 100 WBC 0 X 10*3/uL (0.00-0.01); Neutrophils # (A) 8.03 X 10*3/uL (1.80-7.70); Platelet Count 186 X 10*3/uL (140-440); RBC 3.27 X 10*6/uL (4.10-5.20); RDW 13.5 % (11.5-14.5); WBC 9.34 X 10*3/uL (4.50-10.00)
[2024-01-08] MEDS: FAMOTIDINE 20 MG TAB PO SCH (09:02)
[2024-01-08] MEDS: ENOXAPARIN 40 MG/0.4 ML SYRINGE SQ SCH (09:02)
[2024-01-08] MEDS: hydroCHLOROthiazide 12.5 MG CAP PO SCH (09:02)
[2024-01-08] MEDS: MULTIVITAMINS, THERA 1 EACH TAB PO SCH (09:02)
[2024-01-08] MEDS: ATORVASTATIN 10 MG TAB PO SCH (09:02)
[2024-01-08] MEDS: LOSARTAN 50 MG TAB PO SCH (09:02)
[2024-01-08] MEDS: amLODIPine 5 MG TAB PO SCH (09:02)
[2024-01-08 11:41] LABS: Glucose,Whole Blood 100 mg/dL (70-110)
--- NOTE | 2024-01-08 16:07 | P.PN ---
Subjective Progress Note Date: 01/08/24 Principal diagnosis: Status post direct anterior left total hip arthroplasty Patient evaluated at bedside, she is resting comfortably, she is having minimal discomfort in the hip joint itself, she does have some thigh pain. She has ambulated well with therapy. She is hoping to stay 1 additional night to help prepare for home. Denies headaches, lightheadedness, chest pain or shortness of breath Objective - Vital Signs Vital signs: Vital Signs Temp 98.0 F 01/08/24 13:33 Pulse 71 01/08/24 13:33 Resp 18 01/08/24 13:33 BP 129/54 01/08/24 13:33 Pulse Ox 94 L 01/08/24 13:33 FiO2 Intake & Output 01/07/24 01/08/24 01/08/24 18:59 06:59 18:59 Intake Total 1651 Output Total 55 Balance 1596 Weight 80 kg Intake: IV 1151 Oral 500 Output: Estimated Blood Loss 55 Other: Voiding Method Toilet # Voids 0 1 - Exam Left lower extremity: Incision is clean, dry, and intact. The foam dressing is in good condition. There is minimal soft tissue swelling and ecchymosis surrounding the medial and lateral aspects of the incision. Calf is soft, no tenderness with palpation. Plantar flexion, dorsiflexion, EHL, FHL are intact. Sensory exam to light touch throughout the extremity is intact, dorsal pedis pulses 2+. - Labs CBC & Chem 7: 01/08/24 05:21 Labs: Abnormal Lab Results - Last 24 Hours (Table) 01/07/24 01/07/24 01/08/24 Range/Units 16:46 20:36 05:21 RBC 3.27 L (4.10-5.20) X 10*6/uL Hgb 10.2 L (12.0-15.0) g/dL Hct 31.4 L (37.2-46.3) % Neutrophils # 8.03 H (1.80-7.70) X 10*3/uL Lymphocytes # 0.58 L (0.90-5.00) X 10*3/uL Eosinophils # 0 L (0.04-0.35) X 10*3/uL PT (10.0-12.5) sec INR (<1.2) POC Glucose (mg/dL) 133 H 132 H (70-110) mg/dL 01/08/24 01/08/24 Range/Units 05:21 05:47 RBC (4.10-5.20) X 10*6/uL Hgb (12.0-15.0) g/dL Hct (37.2-46.3) % Neutrophils # (1.80-7.70) X 10*3/uL Lymphocytes # (0.90-5.00) X 10*3/uL Eosinophils # (0.04-0.35) X 10*3/uL PT 15.7 H (10.0-12.5) sec INR 1.5 H (<1.2) POC Glucose (mg/dL) 114 H (70-110) mg/dL Assessment and Plan Assessment: Postoperative day #1 status post left total hip arthroplasty Plan: Pain control, continue with current medications, IV pain medication for breakthrough DVT prophylaxis, continue current medication Wound care instructions discussed Encourage incentive spirometer Medical recommendations appreciated Discharge planning: Plan for discharge home tomorrow Time with Patient: Less than 30
--- NOTE | 2024-01-08 16:16 | P.PN ---
Subjective Progress Note Date: 01/08/24 HISTORY OF PRESENT ILLNESS: This is a 73-year-old female with a previous medical history signif icant for hypertension and hypertensive cardiovascular disease, hyperlipidemia, diabetes mellitus type 2, history of paroxysmal atrial fibrillation currently anticoagulated with Coumadin 5 mg at bedtime, patient underwent left total hip arthroplasty via anterior approach that was done by Dr. Enciso that was done successfully and we were asked to see the patient for postoperative medical management. Patient was laying down in bed in no apparent distress, she denies any chest pain, shortness of breath, she denies any abdominal pain, she felt a bit nauseated, but no vomiting, she has no acute symptoms her vital signs were stable her and her daughter were at the bedside. 01/07: Patient is laying down in bed in no apparent distress, she denies any chest pain, shortness of breath, she tolerated her procedure very well, she ambulated using her walker, she used her stairs, she has no significant pain in the groin area, she is feeling a lot better today, her blood pressure is well-controlled, she will stay in the hospital for another 24 hours, hopefully she will be discharged home tomorrow morning. REVIEW OF SYSTEMS: Constitutional: No documented fever, no chills, no night sweats. No weight change. No weakness, fatigue or lethargy. No daytime sleepiness. EENT: No headache. No blurred vision or double vision, no loss of vision. No loss of Hearing, no ringing in the ears, no dizziness. No nasal drainage or congestion. No epistaxis. No sore throat. Lungs: No shortness of breath, no cough, no sputum production. No wheezing. Reports dyspnea with activity. Cardiovascular: No chest pain, no lower extremity edema. No palpitations. No paroxysmal nocturnal dyspnea. No orthopnea. No lightheadedness or dizziness. No syncopal episodes. Abdominal: Reports no abdominal pain. No nausea, vomiting. No diarrhea. No constipation. No bloody or tarry stools reports loss of appetite. Genitourinary: No dysuria, increased frequency, urgency. No urinary retention. Musculoskeletal: No myalgias. No muscle weakness, no gait dysfunction, no frequent falls. No back pain. No neck pain. Integumentary: Left hip wound is covered with a dressing minimal bruising around, no lesions. No rash or pruritus. No unusual bruising. No change in hair or nails. Neurologic: No aphasia. No facial droop. No change in mentation. No head injury. No headache. No paralysis. No paresthesia. Psychiatric: No depression. No anxiety. No mood swings. Endocrine: No abnormal blood sugars. No weight change. PHYSICAL EXAMINATION: General: 73-year-old female laying down in bed in no apparent distress. HEENT: Head is atraumatic, normocephalic, pupils were equal round reactive to light and recommendation, extraocular muscle movement were intact, sclera nonicteric, conjunctivae were pale, mucous membranes of the mouth are somewhat dry. Neck: Supple, no JVP, normal carotid upstroke bilaterally, no lymphadenopathy. Chest: Decreased breath sounds at the bases, few rhonchi, no expiratory wheezes, no chest wall tenderness, no intercostal retractions. Heart: First heart sound is normal, second heart sounds normal there is systolic ejection murmur 2/6 located in the left sternal border. Abdomen: Soft, nontender, nondistended, positive bowel sounds. Extremities: There is no edema no calf tenderness DP +2 bilaterally. Neurologic examination: Patient is awake alert and oriented x3, cranial nerves II-12 appear grossly intact, muscle power were 5 out of 5 in upper extremities and 5 out of 5 in bilateral lower extremities, deep tendon reflexes normal bilaterally. Skin examination: Left hip anteriorly with a dressing in place, minimal bruising with no evidence of erythema or tenderness. ASSESSMENT AND PLAN: 1. Postoperative day #1 status post left total hip arthroplasty via anterior approach. Patient was instructed to use the incentive spirometer to reduce the incidence of atelectasis and healthcare associated pneumonia, continue current pain management as outlined by orthopedic surgery, continue current bowel care, early ambulation, DVT prophylaxis patient will be restarted back on Coumadin 5 mg at bedtime, keep her INR between 2-3, I will follow-up with the patient very closely, we will follow-up with the patient. 2. Hypertension and hypertensive cardiovascular disease. Continue patient on losartan 100 mg once every day, hydrochlorothiazide 12.5 mg once every day, continue patient also on amlodipine 5 mg once every day continue metoprolol 25 mg orally once every day, monitor the patient blood pressure very closely. 3. Mixed hyperlipidemia. Continue patient on atorvastatin 40 mg once every day, monitor the patient lipid panel, keep LDL 55-70. 4. Diabetes mellitus type 2. Continue patient on metformin 500 mg a bedtime,, monitor the patient blood glucose level before each meal and at bedtime. May order sliding scale insulin. 5. Osteoarthritis. Continue current pain management. 6. Vitamin D deficiency. Continue vitamin D supplement. 7. Paroxysmal atrial fibrillation continue metoprolol 25 mg once every day, restart the patient on Coumadin 5 mg at bedtime recheck PT and INR tomorrow morning. 8. DVT prophylaxis. Continue patient on Coumadin keep INR between 2-3. 9. GI prophylaxis. Not needed 10. We will continue to follow with you. Objective - Vital Signs Vital signs: Vital Signs Temp 98.0 F 01/08/24 13:33 Pulse 71 01/08/24 13:33 Resp 18 01/08/24 13:33 BP 129/54 01/08/24 13:33 Pulse Ox 94 L 01/08/24 13:33 FiO2 Intake & Output 01/07/24 01/08/24 01/08/24 18:59 06:59 18:59 Intake Total 1651 Output Total 55 Balance 1596 Weight 80 kg Intake: IV 1151 Oral 500 Output: Estimated Blood Loss 55 Other: Voiding Method Toilet # Voids 0 1 - Labs CBC & Chem 7: 01/08/24 05:21 Labs: Abnormal Lab Results - Last 24 Hours (Table) 01/07/24 01/07/24 01/08/24 Range/Units 16:46 20:36 05:21 RBC 3.27 L (4.10-5.20) X 10*6/uL Hgb 10.2 L (12.0-15.0) g/dL Hct 31.4 L (37.2-46.3) % Neutrophils # 8.03 H (1.80-7.70) X 10*3/uL Lymphocytes # 0.58 L (0.90-5.00) X 10*3/uL Eosinophils # 0 L (0.04-0.35) X 10*3/uL PT (10.0-12.5) sec INR (<1.2) POC Glucose (mg/dL) 133 H 132 H (70-110) mg/dL 01/08/24 01/08/24 Range/Units 05:21 05:47 RBC (4.10-5.20) X 10*6/uL Hgb (12.0-15.0) g/dL Hct (37.2-46.3) % Neutrophils # (1.80-7.70) X 10*3/uL Lymphocytes # (0.90-5.00) X 10*3/uL Eosinophils # (0.04-0.35) X 10*3/uL PT 15.7 H (10.0-12.5) sec INR 1.5 H (<1.2) POC Glucose (mg/dL) 114 H (70-110) mg/dL
[2024-01-08 17:10] LABS: Glucose,Whole Blood 116 mg/dL (70-110)
[2024-01-08] MEDS: WARFARIN 5 MG TAB PO ONE (17:46)
[2024-01-08 21:18] LABS: Glucose,Whole Blood 163 mg/dL (70-110)
[2024-01-09 05:22] LABS: INR 2.3 (<1.2); Prothrombin Time 23.3 sec (10.0-12.5)
[2024-01-09 05:24] LABS: Glucose,Whole Blood 102 mg/dL (70-110)
[2024-01-09 07:28] VITALS: BP 149/53; PULSE 58; RESP 17; TEMP 98
[2024-01-09] MEDS: ERGOCALCIFEROL 1,250 MCG (50,000 IU) CAPSULE PO SCH (09:28)
--- NOTE | 2024-01-09 10:06 | P.PN ---
Subjective Progress Note Date: 01/09/24 Principal diagnosis: Status post direct anterior left total hip arthroplasty Patient evaluated at bedside, she is resting comfortably, she was visualized ambulating the halls with physical therapy. She is utilizing is a walker, she did do stairs and no difficulty. The hip pain is essentially gone, she has mild discomfort in her thigh. Denies headaches, lightheadedness, chest pain or shortness of breath Objective - Vital Signs Vital signs: Vital Signs Temp 98.0 F 01/09/24 07:27 Pulse 58 L 01/09/24 07:27 Resp 17 01/09/24 07:27 BP 149/53 01/09/24 07:27 Pulse Ox 97 01/09/24 07:27 FiO2 Intake & Output 01/08/24 01/09/24 01/09/24 18:59 06:59 18:59 Other: Voiding Method Toilet Toilet # Voids 1 - Exam Left lower extremity: Incision is clean, dry, and intact. The foam dressing is in good condition. There is minimal soft tissue swelling and ecchymosis surrounding the medial and lateral aspects of the incision. Calf is soft, no tenderness with palpation. Plantar flexion, dorsiflexion, EHL, FHL are intact. Sensory exam to light touch throughout the extremity is intact, dorsal pedis pulses 2+. - Labs CBC & Chem 7: 01/08/24 05:21 Labs: Abnormal Lab Results - Last 24 Hours (Table) 01/08/24 01/08/24 01/09/24 Range/Units 17:08 21:15 04:56 PT 23.3 H (10.0-12.5) sec INR 2.3 H (<1.2) POC Glucose (mg/dL) 116 H 163 H (70-110) mg/dL Assessment and Plan Assessment: Postoperative day #2 status post left total hip arthroplasty Plan: Pain control, plan for discharge on [place] 5 mg / 325 mg DVT prophylaxis, aspirin 81 mg twice a day for 30 days Wound care instructions discussed Encourage incentive spirometer Medical recommendations appreciated Discharge planning: Plan for discharge home today Time with Patient: Less than 30
--- NOTE | 2024-01-09 10:08 | P.DS ---
Providers Date of admission: 01/08/24 09:59 Attending physician: Akira Enciso Consults: 01/07/24 09:23 Consult Physician Routine Consulting Provider: Tyrone Richter Consult Reason/Comments: Medical management Do you want consulting provider notified?: Yes Primary care physician: Tyrone Richter Hospital Course: Date of admission: 01/07/2024 Date of discharge: 01/08/2024 Admission diagnosis: Status post direct anterior left total hip arthroplasty Discharge diagnosis: Same Attending physician: Dr. Enciso Surgical procedures: Direct anterior left total hip arthroplasty Brief history: Patient is a 73-year-old female with a history of progressive primary left hip osteoarthritis. At this point patient has failed conservative treatment measures and has opted to proceed with a elective direct anterior left total hip arthroplasty. Hospital course: Details of patient's surgery can be found in operative report. Patient tolerated the procedure well and was subsequently transported to orthopedic floor. Patient's orthopeidc and medical care was provided daily. Patient had daily laboratory tests performed for evaluation of overall blood counts. Patient had daily physical therapy to include strengthening range of motion as well as education with walker ambulation. Patient was treated with Lovenox and Coumadin for their postoperative DVT prophylaxis during their inpatient stay. Patient was noted to have a relatively uneventful postoperative course. Patient reported satisfactory pain control with oral pain medications by postoperative day 1. Patient showed satisfactory progress with physical therapy. Patient moved steadily through the program and had no difficulty meeting the goals by postoperative day 2. Given patient's otherwise satisfactory course and having met physical therapy goals, plan is to discharge patient home on postoperative day 2. Discharge condition/disposition: Patient will be discharged home in stable condition. Discharge medications: Instructions are given on resumption of patient's normal daily medications per primary care recommendation, in addition patient will be prescribed [place] 5 mg / 325 mg, senna S. Discharge instructions: 1. Wound care and infection precautions, keep incision dry and covered while showering, no lotions, creams, moisturizers. No soaking, tubs, pools, hottubs. Do not scrub over the incision. 2. Weight-bear as tolerated with walker / cane until follow-up. 3. Ice and elevate when necessary. Do not exceed 20 minutes per hour with ice pack. 4. Utilize compression sleeve until seen at first follow up appointment. 5. Visiting nursing care. 6. Home physical therapy. 7. Pain meds and anticoagulants per prescription. 8. Pain medication has potential to cause constipation. Increase oral fluid and fiber intake. Contact primary care provider if you have not had a bowel movement within 48 hours after discharge 9. No anti-inflammatory medication until discussed at first post operative visit, this including Motrin, Aleve, Mobic, Diclofenac. 10. Follow up in office at 2 weeks postop with Jose Armstrong PA-C/Arie Bergman 11. Follow up with your primary care doctor 7-10 days after discharge. 12. Contact [facility] with any questions, . Procedures: Direct anterior left total hip arthroplasty Patient Condition at Discharge: Good Plan - Discharge Summary Discharge Rx Participant: No New Discharge Prescriptions: New HYDROcodone/APAP 5-325MG [[place] 5-325] 1 tab PO Q6HR PRN #28 tab PRN Reason: Pain Sennosides/Docusate Sodium [Senna-S 8.6-50 mg Tablet] 2 each PO DAILY PRN #30 tablet PRN Reason: Constipation No Action Atorvastatin [Lipitor] 10 mg PO QAM amLODIPine [Norvasc] 5 mg PO QAM Metoprolol Tartrate [Lopressor] 25 mg PO BID Ergocalciferol [Vitamin D2 (DRISDOL)] 50,000 unit PO SA Losartan Potassium [Cozaar] 100 mg PO DAILY hydroCHLOROthiazide [Hydrodiuril] 12.5 mg PO DAILY Acetaminophen/Diphenhydramine [Tylenol PM 500-25mg] 1 tab PO HS PRN PRN Reason: Pain Warfarin [Coumadin] 5 mg PO HS metFORMIN HCL ER [Glucophage XR] 500 mg PO HS Discharge Medication List Atorvastatin [Lipitor] 10 mg PO QAM 10/30/17 [History] Metoprolol Tartrate [Lopressor] 25 mg PO BID 07/01/18 [History] amLODIPine [Norvasc] 5 mg PO QAM 07/01/18 [History] Ergocalciferol [Vitamin D2 (DRISDOL)] 50,000 unit PO SA 03/30/19 [History] Losartan Potassium [Cozaar] 100 mg PO DAILY 06/15/19 [History] hydroCHLOROthiazide [Hydrodiuril] 12.5 mg PO DAILY 06/15/19 [History] Acetaminophen/Diphenhydramine [Tylenol PM 500-25mg] 1 tab PO HS PRN 01/01/24 [History] Warfarin [Coumadin] 5 mg PO HS 01/01/24 [History] metFORMIN HCL ER [Glucophage XR] 500 mg PO HS 01/01/24 [History] HYDROcodone/APAP 5-325MG [[place] 5-325] 1 tab PO Q6HR PRN #28 tab 01/09/24 [Rx] Sennosides/Docusate Sodium [Senna-S 8.6-50 mg Tablet] 2 each PO DAILY PRN #30 tablet 01/09/24 [Rx] Follow up Appointment(s)/Referral(s): [facility], [NON-STAFF] - 1 Week ([facility] will call you to arrange a visit) [place] 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 Resume Coumadin after discharge 2. Plan for follow-up with primary care for INR checks Orthopedic Discharge Instructions: 1. Wound care and infection precautions, keep incision dry and covered while showering, no lotions, creams, moisturizers. No soaking, pools, hot tubs. Do not scrub over incision. 2. Weight-bear as tolerated with walker / cane until follow-up. 3. Ice and elevate when necessary. Do not exceed 20 minutes per hour with ice pack. 4. Utilize compression sleeve until seen at first follow up appointment. 5. Pain meds and anticoagulants per prescription. 6. Pain medication has potential to cause constipation. Increase oral fluid and fiber intake. Contact primary care provider if you have not had a bowel movement within 48 hours after discharge. 7. No anti-inflammatory medication until discussed at first post operative visit, this including Motrin, Aleve, Mobic, Diclofenac. 8. Follow up in office at 2 weeks postop with Jose Armstrong PA-C/Arie Allen PA-C 9. Follow up with your primary care doctor 7-10 days after discharge. 10. Contact [facility] with any questions, . Wound care instructions: 1. Okay to remove surgical dressing as of 01/14/2024 2. Okay to shower directly over the incision after removal of dressing Discharge Disposition: HOME WITH HOME HEALTH SERVICES
[2024-01-09] MEDS ORDERED: WARFARIN 2 MG TAB PO ONE (18:00)
== END 2024-01-09 12:14 | disposition home health service (06) ==
LOC: OR 06:43 → 4SSUR 09:34 → OR 01-08 09:59 → 4SSUR 01-08 09:59
PROVIDERS: ADMIT Orthopaedic Surgery; ATTEND Orthopaedic Surgery
DX: M16.12 Unilateral primary osteoarthritis, left hip (principal); I48.0 Paroxysmal atrial fibrillation; I11.9 Hypertensive heart disease without heart failure; E11.9 Type 2 diabetes mellitus without complications; E78.2 Mixed hyperlipidemia; E55.9 Vitamin D deficiency, unspecified; Z79.01 Long term (current) use of anticoagulants; Z79.84 Long term (current) use of oral hypoglycemic drugs; Z79.899 Other long term (current) drug therapy; Z91.040 Latex allergy status; Z87.891 Personal history of nicotine dependence
CPT/HCPCS: 64447; 73502; 80053; 85025; 85610; 85730; 96372